=== PATIENT | female | born 1995 | race Hispanic/Latino ===

== ENCOUNTER 2020-03-09 18:44 | Emergency (ER) | payer SELFPAY ==
[2020-03-09 19:31] LABS: Urine Blood NEGATIVE (NEG); Urine Glucose NEGATIVE (NEG); Urine Protein NEGATIVE (NEG); Urine Specific Gravity 1.025 (1.005-1.030)
[2020-03-09 19:43] LABS: Absolute Lymphocytes (CBC) 1.7 K/uL (0.7-4.9); Basophils % 1.5 % (0-1.3); Hematocrit 39.4 % (36.0-45.0); Lymphocytes % 22.7 % (15.3-44.8); MPV 10.2 fL (7.6-11.3); RBC Red Blood Cell Count 4.82 M/uL (3.86-4.86)
[2020-03-09] MEDS ORDERED: NA CHLORIDE 0.9% 1,000 ML ONE ×2 (19:46→20:28)
[2020-03-09] MEDS ORDERED: ONDANSETRON 4 MG/2 ML VIAL ONE (19:46)
[2020-03-09 20:14] LABS: BUN Blood Urea Nitrogen 9 mg/dL (7-18); Bicarbonate 24 mmol/L (21-32); Glucose Level 91 mg/dL (74-106); HCG, Quantitative 151707 mIU/mL (1-3); Potassium 3.5 mmol/L (3.5-5.1); Sodium Level 135 mmol/L (136-145)
--- NOTE | 2020-03-09 21:59 | EDPHYS ---
Physician Documentation [facility] Name: Cristi Ga Age: 24 yrs Sex: Female : 1995 Arrival Date: 03/09/2020 Time: 18:47 Bed 5 Private MD: ED Physician Sundar Ragland HPI: 03/09 20:11 This 24 yrs old Female presents to ER via Ambulatory with complaints of pkl Vomiting, Dizziness, 8Weeks . 20:11 The patient presents to the emergency department with nausea, that is mild, vomiting, 4 pkl to 5 times a day. Onset: The symptoms/episode began/occurred 2 week(s) ago. Associated signs and symptoms: Pertinent positives: dizziness. Patient said she is about 8 weeks . 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 - Social history:: Smoking status: Patient denies any tobacco usage or history of. ROS: 20:11 Eyes: Negative for injury, pain, redness, and discharge, ENT: Negative for injury, pkl pain, and discharge, Neck: Negative for injury, pain, and swelling, Cardiovascular: Negative for chest pain, palpitations, and edema, Respiratory: Negative for shortness of breath, cough, wheezing, and pleuritic chest pain. 20:11 Abdomen/GI: Positive for nausea and vomiting. 20:11 Back: Negative for acute changes. 20:11 : Negative for urinary symptoms. 20:11 MS/extremity: Negative for acute changes. 20:11 Skin: Negative for rash. 20:11 Neuro: Negative for altered mental status. Exam: 20:11 Head/Face: Normocephalic, atraumatic. Eyes: Pupils equal round and reactive to light, pkl extra-ocular motions intact. Lids and lashes normal. Conjunctiva and sclera are non-icteric and not injected. Cornea within normal limits. Periorbital areas with no swelling, redness, or edema. ENT: Nares patent. No nasal discharge, no septal abnormalities noted. Tympanic membranes are normal and external auditory canals are clear. Oropharynx with no redness, swelling, or masses, exudates, or evidence of obstruction, uvula midline. Mucous membranes moist. Neck: Trachea midline, no thyromegaly or masses palpated, and no cervical lymphadenopathy. Supple, full range of motion without nuchal rigidity, or vertebral point tenderness. No Meningismus. Chest/axilla: Normal chest wall appearance and motion. Nontender with no deformity. No lesions are appreciated. Cardiovascular: Regular rate and rhythm with a normal S1 and S2. No gallops, murmurs, or rubs. Normal PMI, no JVD. No pulse deficits. Respiratory: Lungs have equal breath sounds bilaterally, clear to auscultation and percussion. No rales, rhonchi or wheezes noted. No increased work of breathing, no retractions or nasal flaring. Abdomen/GI: Soft, non-tender, with normal bowel sounds. No distension or tympany. No guarding or rebound. No evidence of tenderness throughout. Back: No spinal tenderness. No costovertebral tenderness. Full range of motion. Skin: Warm, dry with normal turgor. Normal color with no rashes, no lesions, and no evidence of cellulitis. MS/ Extremity: Pulses equal, no cyanosis. Neurovascular intact. Full, normal range of motion. Neuro: Awake and alert, GCS 15, oriented to person, place, time, and situation. Cranial nerves II-XII grossly intact. Motor strength 5/5 in all extremities. Sensory grossly intact. Cerebellar exam normal. Normal gait. Vital Signs: 19:05 BP 118 / 73; Pulse 106; Resp 16 S; Temp 97.5(TE); Pulse Ox 100% on R/A; Weight 68.04 kg ca1 (R); Height 5 ft. 7 in. (170.18 cm) (R); 21:05 BP 106 / 65; Pulse 72; Resp 18; Pulse Ox 100% on R/A; ea 22:08 BP 110 / 70; Pulse 70; Resp 16; Pulse Ox 99% ; rr5 19:05 Body Mass Index 23.49 (68.04 kg, 170.18 cm) ca1 MDM: 19:20 Patient medically screened. pkl 21:56 Data reviewed: vital signs, nurses notes, lab test result(s). ED course: Patient pkl feeling better. discussed lab results with patient. Advised to follow up with Ob. Garbage Collector Supervisor in 2 to 3 days. Patient understood instructions. 03/09 19:20 Order name: Urine Dipstick--Ancillary (enter results); Complete Time: 20:16 ar5 03/09 19:20 Order name: Urine --Ancillary (enter results); Complete Time: 20:16 ar5 03/09 19:27 Order name: CBC with Diff; Complete Time: 20:16 pkl 03/09 19:27 Order name: Chem 7; Complete Time: 20:16 pkl 03/09 19:27 Order name: Quantitative Hcg; Complete Time: 20:16 pkl 03/09 19:27 Order name: Rh Typing; Complete Time: 20:16 pkl 03/09 19:18 Order name: Urine Dipstick-Ancillary (obtain specimen); Complete Time: 19:18 ca1 03/09 19:18 Order name: Urine Test (obtain specimen); Complete Time: 19:18 ca1 Administered Medications: 19:47 Drug: NS 0.9% 1000 ml Route: IV; Rate: 1000 ml; Site: right antecubital; rr5 21:00 Follow up: Response: No adverse reaction; IV Status: Completed infusion; IV Intake: rr5 1000ml 19:49 Drug: Zofran (Ondansetron) 4 mg Route: IVP; Site: right antecubital; rr5 20:50 Follow up: Response: No adverse reaction rr5 21:01 Drug: NS 0.9% 1000 ml Route: IV; Rate: 125 ml/hr; Site: right antecubital; rr5 22:09 Follow up: Response: No adverse reaction; IV Status: Order to discontinue infusion; IV rr5 Intake: 400ml Disposition: 03/09/20 21:59 Discharged to Home. Impression: Hyperemesis gravidarum. - Condition is Stable. - Prescriptions for Zofran 4 mg Oral Tablet - take 1 tablet by ORAL route every 12 hours As needed; 10 tablet. - Medication Reconciliation Form, Thank You Letter, Antibiotic Education, Prescription Opioid Use, Work release form form. - Follow up: Private Physician; When: 2 - 3 days; Reason: Re-evaluation by your physician. - Problem is new. - Symptoms have improved. Signatures: Dispatcher [employer] EDMS Sundar Ragland MD MD pkl Daniella Diego RN RN ea Eben Joseph, RN RN rr5 AcStephanie michel RN RN ca1 Corrections: (The following items were deleted from the chart) 22:11 21:59 03/09/2020 21:59 Discharged to Home. Impression: Hyperemesis gravidarum. ea Condition is Stable. Forms are Medication Reconciliation Form, Thank You Letter, Antibiotic Education, Prescription Opioid Use. Follow up: Private Physician; When: 2 - 3 days; Reason: Re-evaluation by your physician. Problem is new. Symptoms have improved. pkl
--- NOTE | 2020-03-09 21:59 | ER ---
Nurse's Notes [facility] Name: Cristi Ga Age: 24 yrs Sex: Female : 1995 Arrival Date: 03/09/2020 Time: 18:47 Bed 5 Private MD: Diagnosis: Hyperemesis gravidarum Presentation: 03/09 19:05 Chief complaint: Patient states: 8 weeks , N/V x 2 weeks. Can't keep anything ca1 down, started feeling dizzy and weak this past few days. Coronavirus screen: Client denies travel out of the [place] in the last 14 days. At this time, the client does not indicate any symptoms associated with coronavirus-19. Ebola Screen: Patient negative for fever greater than or equal to 101.5 degrees Fahrenheit, and additional compatible Ebola Virus Disease symptoms Patient denies exposure to infectious person. Patient denies travel to an Ebola-affected area in the 21 days before illness onset. No symptoms or risks identified at this time. Initial Sepsis Screen: Does the patient meet any 2 criteria? No. Patient's initial sepsis screen is negative. Does the patient have a suspected source of infection? No. Patient's initial sepsis screen is negative. Risk Assessment: Do you want to hurt yourself or someone else? Patient reports no desire to harm self or others. Onset of symptoms was March 09, 2020. 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 - Social history:: Smoking status: Patient denies any tobacco usage or history of. Screenin:50 Abuse screen: Denies threats or abuse. Denies injuries from another. Nutritional rr5 screening: No deficits noted. Tuberculosis screening: No symptoms or risk factors identified. Fall Risk IV access (20 points). Total Burris Fall Scale indicates No Risk (0-24 pts). Assessment: 19:30 General: Appears in no apparent distress. uncomfortable, Behavior is calm, cooperative, rr5 appropriate for age. Pain: Denies pain. Neuro: Level of Consciousness is awake, alert, obeys commands, Oriented to person, place, time, situation, Appropriate for age. Cardiovascular: Capillary refill < 3 seconds Patient's skin is warm and dry. Respiratory: Airway is patent Respiratory effort is even, unlabored, Respiratory pattern is regular, symmetrical. GI: Abdomen is flat, Reports nausea, vomiting. : No signs and/or symptoms were reported regarding the genitourinary system. Denies vaginal bleeding. EENT: No signs and/or symptoms were reported regarding the EENT system. Derm: Skin is intact, is healthy with good turgor, Skin temperature is warm. Musculoskeletal: Circulation, motion, and sensation intact. Capillary refill < 3 seconds. 20:19 Reassessment: Patient appears in no apparent distress at this time. Patient is alert, rr5 oriented x 3, equal unlabored respirations, skin warm/dry/pink. Patient states feeling better. Patient states symptoms have improved. 21:00 Reassessment: Patient appears in no apparent distress at this time. Patient is alert, rr5 oriented x 3, equal unlabored respirations, skin warm/dry/pink. 22:08 Reassessment: Patient appears in no apparent distress at this time. Patient is alert, rr5 oriented x 3, equal unlabored respirations, skin warm/dry/pink. discharge instruction given and explained without complaints made. Patient states feeling better. Patient states symptoms have improved. Vital Signs: 19:05 BP 118 / 73; Pulse 106; Resp 16 S; Temp 97.5(TE); Pulse Ox 100% on R/A; Weight 68.04 kg ca1 (R); Height 5 ft. 7 in. (170.18 cm) (R); 21:05 BP 106 / 65; Pulse 72; Resp 18; Pulse Ox 100% on R/A; ea 22:08 BP 110 / 70; Pulse 70; Resp 16; Pulse Ox 99% ; rr5 19:05 Body Mass Index 23.49 (68.04 kg, 170.18 cm) ca1 ED Course: 18:47 Patient arrived in ED. rg4 19:07 Triage completed. ca1 19:07 Arm band placed on right wrist. ca1 19:10 Joseph, Eben, RN is Primary Nurse. rr5 19:20 Sundar Ragland MD is Attending Physician. pkl 19:20 Patient has correct armband on for positive identification. Placed in gown. Bed in low rr5 position. Call light in reach. Pulse ox on. NIBP on. 19:25 Inserted saline lock: 20 gauge in right antecubital area, using aseptic technique. ds4 Blood collected. 22:07 No provider procedures requiring assistance completed. IV discontinued, intact, rr5 bleeding controlled, No redness/swelling at site. Pressure dressing applied. Administered Medications: 19:47 Drug: NS 0.9% 1000 ml Route: IV; Rate: 1000 ml; Site: right antecubital; rr5 21:00 Follow up: Response: No adverse reaction; IV Status: Completed infusion; IV Intake: rr5 1000ml 19:49 Drug: Zofran (Ondansetron) 4 mg Route: IVP; Site: right antecubital; rr5 20:50 Follow up: Response: No adverse reaction rr5 21:01 Drug: NS 0.9% 1000 ml Route: IV; Rate: 125 ml/hr; Site: right antecubital; rr5 22:09 Follow up: Response: No adverse reaction; IV Status: Order to discontinue infusion; IV rr5 Intake: 400ml Intake: 21:00 IV: 1000ml; Total: 1000ml. rr5 22:09 IV: 400ml; Total: 1400ml. rr5 Outcome: 21:59 Discharge ordered by . pkl 22:07 Discharged to home ambulatory. rr5 22:07 Condition: stable 22:07 Discharge instructions given to patient, Instructed on discharge instructions, follow up and referral plans. medication usage, Demonstrated understanding of instructions, follow-up care, medications, Prescriptions given X 1. 22:11 Patient left the ED. ea Signatures: Sundar Ragland MD MD pkEagle Welch ds4 Tammie Rolle4 Daniella Diego RN RN ea Roque, Raymond, RN RN rr5 Stephanie Olmstead RN RN ca1
[2020-03-09 23:39] VITALS: TEMP 97.5
[2020-03-09 23:41] VITALS: BP 110/70; O2SAT 99
== END 2020-03-09 22:11 | disposition home or self-care (01) ==
LOC: ER 18:44
DX: O21.0 Mild hyperemesis gravidarum (principal); Z3A.08 8 weeks gestation of pregnancy
CPT/HCPCS: 36415; 80048; 81003; 81025; 84702; 85025; 86901; J2405; J7030

== ENCOUNTER 2021-12-31 00:50 | Inpatient (IN) | payer OTHER ==
--- OUTSIDE RECORDS SUMMARY | 2021-12-31 00:54 | XMS REPORT | Continuity of Care Document ---
:1995 Author Organization [facility] t Address [address] [place] [address] Care Team Providers Name Role Phone White_Braydon Attending Clinician Unavailable Keyana_Donna Attending Clinician Unavailable Jennifer_Matthew Attending Clinician Unavailable RUPERT Attending Clinician Unavailable Dalia_Braydon Admitting Clinician Unavailable Keyana_Donna Admitting Clinician Unavailable Jennifer_L Admitting Clinician Unavailable Lexa Rodriguez Admitting Clinician Unavailable RUPERT Admitting Clinician Unavailable Payers Payer Name Policy Type Policy Number Effective Date Expiration Date Kim aguilar [facility] D [id number] 2017 Choice Medicaid 00:00:00 [facility] D [id number] 2012 2012 Choice Medicaid 00:00:00 00[place]00:00 [place] [id number] [place] [facility] [id number] CHOICE (MEDICAID REPLACEMENT - [place]) [place]OM[place] [id number] HEALTH PROGRAM - FAMILY PLANNING Problems Condition Condition Condition Status Onset Resolution Last Treating Co mments Source Name Details Category Date Date Treatment Clinician Date Contracept Contracept Problem Active [facility] ion using ion Using 5-09 da injectable Injectable 00:00: Me dical contracept Contracept 00 Gr oup kianna kianna medication Medication History of History of Problem Active M [facility] 3 3 da miscarriag [place] Me dical es es Group Allergies, Adverse Reactions, Alerts Allergy Allergy Status Severity Reaction(s) Onset Inactive Treating Comm ents Source Name Type Date Date Clinician No Known DA [facility]04 [place] [facility] 00[facility] No Known DA [facility] 04-04 [place] 00:[facility]: [facility] No Known DA Active [facility] 01-28 [place] 00:[facility]: [facility] No Known DA Active [facility]ie 01-28 [place] 00:[facility]: [facility] Social History Smoking Status Start Date Stop Date Source Never Smoker [facility] Medications Ordered Filled Start Stop Current Ordering Indication Dosage Frequency Signature Comments Components Source Medication Medication Date Date Medication? Clinician (SIG) Name Name medroxyprog medroxyprog No medroxypro [place] esterone esterone 5-24 gesterone da 150 mg/mL 150 mg/mL 11:28: 150 mg/mL Medical intramuscul intramuscul 44 intramuscu Group ar ar lar suspensionI suspensionI suspension nject 1 mL nject 1 mL Inject 1 every 3 every 3 mL every 3 months by months by months by intramuscul intramuscul intramuscu ar route. ar route. lar route. Depo-Labels Molder Depo-Labels Molder No 1mL Depo-Prove [place] a 150 mg/mL a 150 mg/mL ra 150 da intramuscul intramuscul mg/mL Medical ar syringe ar syringe intramuscu Group Inject 1 mL Inject 1 mL lar every 3 every 3 syringe months by months by Inject 1 intramuscul intramuscul mL every 3 ar route. ar route. months by intramuscu lar route. medroxyprog medroxyprog No 1mL medroxypro [place] esterone esterone gesterone da 150 mg/mL 150 mg/mL 150 mg/mL Medical intramuscul intramuscul intramuscu Group ar ar lar suspension suspension suspension Inject 1 mL Inject 1 mL Inject 1 every 3 every 3 mL every 3 months by months by months by intramuscul intramuscul intramuscu ar route. ar route. lar route. Immunizations Ordered Immunization Filled Immunization Date Status Commen ts Source Name Name Tdap Tdap 2018-02-14 Completed [place] 10:18:49 [facility] Tdap Tdap 2018-02-14 Completed [facility] 00:00:00 [facility] Vital Signs Vital Name Observation Time Observation Value Comments Source BP Diastolic 2021-12-13 00:00:00 78 mm[Hg] [facility] Height 2021-12-13 00:00:00 67 [in_i] [facility] BMI (Body Mass 2021-12-13 00:00:00 29.6 kg/m2 [facility] Index) Group BP Systolic 2021-12-13 00:00:00 111 mm[Hg] [facility] Body Weight 2021-12-13 00:00:00 189.3 [lb_av] [facility] BP Diastolic 2021-05-31 00:00:00 74 mm[Hg] [facility] Height 2021-05-31 00:00:00 67 [in_i] [facility] BMI (Body Mass 2021-05-31 00:00:00 29.7 kg/m2 [facility]) Group BP Systolic 2021-05-31 00:00:00 124 mm[Hg] [facility] Body Weight 2021-05-31 00:00:00 189.6 [lb_av] [facility] Height 2021-02-16 00:00:00 67 [in_i] [facility] BP Diastolic 2020-11-12 00:00:00 80 mm[Hg] [facility] Height 2020-11-12 00:00:00 67 [in_i] [facility] BMI (Body Mass 2020-11-12 00:00:00 25.1 kg/m2 [facility]) Group BP Systolic 2020-11-12 00:00:00 128 mm[Hg] [facility] Body Weight 2020-11-12 00:00:00 160.1 [lb_av] [facility] BP Diastolic 2020-10-11 00:00:00 78 mm[Hg] [facility] Height 2020-10-11 00:00:00 67 [in_i] [facility] BMI (Body Mass 2020-10-11 00:00:00 25.2 kg/m2 [facility]) Group BP Systolic 2020-10-11 00:00:00 115 mm[Hg] [facility] Body Weight 2020-10-11 00:00:00 160.9 [lb_av] [facility] BP Diastolic 2020-10-05 00:00:00 81 mm[Hg] [facility] Height 2020-10-05 00:00:00 67 [in_i] [facility] BMI (Body Mass 2020-10-05 00:00:00 25 kg/m2 [facility]) Group BP Systolic 2020-10-05 00:00:00 121 mm[Hg] [facility] Body Weight 2020-10-05 00:00:00 159.6 [lb_av] [facility] BP Diastolic 2020-09-28 00:00:00 76 mm[Hg] [facility] Height 2020-09-28 00:00:00 67 [in_i] [facility] BMI (Body Mass 2020-09-28 00:00:00 25 kg/m2 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) Group BP Systolic 2020-09-28 00:00:00 115 mm[Hg] [facility] Body Weight 2020-09-28 00:00:00 159.6 [lb_av] [facility] BP Diastolic 2020-09-14 00:00:00 75 mm[Hg] [facility] Height 2020-09-14 00:00:00 67 [in_i] [facility] BMI (Body Mass 2020-09-14 00:00:00 24.7 kg/m2 [facility]) Group BP Systolic 2020-09-14 00:00:00 116 mm[Hg] [facility] Body Weight 2020-09-14 00:00:00 157.4 [lb_av] [facility] BP Diastolic 2020-08-30 00:00:00 71 mm[Hg] [facility] Height 2020-08-30 00:00:00 67 [in_i] [facility] BMI (Body Mass 2020-08-30 00:00:00 23.9 kg/m2 [facility]) Group BP Systolic 2020-08-30 00:00:00 105 mm[Hg] [facility] Body Weight 2020-08-30 00:00:00 152.3 [lb_av] [facility] BP Diastolic 2020-08-09 00:00:00 73 mm[Hg] [facility] Height 2020-08-09 00:00:00 67 [in_i] [facility] BMI (Body Mass 2020-08-09 00:00:00 23.4 kg/m2 [facility]) Group BP Systolic 2020-08-09 00:00:00 112 mm[Hg] [facility] Body Weight 2020-08-09 00:00:00 149.3 [lb_av] [facility] BP Diastolic 2020-06-04 00:00:00 66 mm[Hg] [facility] Height 2020-06-04 00:00:00 67 [in_i] [facility] BMI (Body Mass 2020-06-04 00:00:00 22.3 kg/m2 [facility]) Group BP Systolic 2020-06-04 00:00:00 110 mm[Hg] [facility] Body Weight 2020-06-04 00:00:00 142.7 [lb_av] [facility] BP Diastolic 2020-05-06 00:00:00 72 mm[Hg] [facility] Height 2020-05-06 00:00:00 67 [in_i] [facility] BMI (Body Mass 2020-05-06 00:00:00 22.1 kg/m2 [facility]) Group BP Systolic 2020-05-06 00:00:00 102 mm[Hg] [facility] Body Weight 2020-05-06 00:00:00 140.9 [lb_av] [facility] BP Diastolic 2020-04-15 00:00:00 74 mm[Hg] [facility] Height 2020-04-15 00:00:00 67 [in_i] [facility] BMI (Body Mass 2020-04-15 00:00:00 22.3 kg/m2 [facility]) Group BP Systolic 2020-04-15 00:00:00 114 mm[Hg] [facility] Body Weight 2020-04-15 00:00:00 142.2 [lb_av] [facility] BP Diastolic 2019-06-12 00:00:00 76 mm[Hg] [facility] Height 2019-06-12 00:00:00 67 [in_i] [facility] BMI (Body Mass 2019-06-12 00:00:00 23.4 kg/m2 [facility] Index) Group BP Systolic 2019-06-12 00:00:00 133 mm[Hg] [facility] Body Weight 2019-06-12 00:00:00 149.1 [lb_av] [facility] BP Diastolic 2019-03-11 00:00:00 72 mm[Hg] [facility] Height 2019-03-11 00:00:00 67 [in_i] [facility] BMI (Body Mass 2019-03-11 00:00:00 22.3 kg/m2 [facility]) Group BP Systolic 2019-03-11 00:00:00 119 mm[Hg] [facility] Body Weight 2019-03-11 00:00:00 142.1 [lb_av] [facility] BP Diastolic 2018-12-09 00:00:00 78 mm[Hg] [facility] Height 2018-12-09 00:00:00 67 [in_i] [facility] BMI (Body Mass 2018-12-09 00:00:00 22.2 kg/m2 [facility]) Group BP Systolic 2018-12-09 00:00:00 124 mm[Hg] [facility] Body Weight 2018-12-09 00:00:00 141.5 [facility]lb_av[facility] BP Diastolic 2018-09-12 00:00:00 82 mm[facility]Hg[facility] Height 2018-09-12 00:00:00 67 [in_i[facility] BMI (Body Mass 2018-09-12 00:00:00 22.3 kg/m2 [facility]) Group BP Systolic 2018-09-12 00:00:00 128 mm[facility]Hg[facility] Body Weight 2018-09-12 00:00:00 142.5 [lb_av] [facility] Procedures Procedure Date / Time Performing Clinician Source Performed non-stress test 2020-10-05 00:00:00 [place] [facility] US, obstetric, limited 2020-09-28 00:00:00 [facility] 2020-08-30 00:00:00 [facility] ULTRASOUND REPEAT 2020-08-09 00:00:00 [facility] ULTRASOUND, 2020-05-06 00:00:00 [facility] UTERUS REAL TIME WITH Group IMAGE DOC, AND MATERNAL EVAL PLUS DETAILED ANATOMIC EXAMINATION, TRANSABDOMINAL APPROACH; SINGLE OR FIRST GESTATION US, obstetric, limited 2020-05-06 00:00:00 [facility] US, obstetric, limited 2020-04-15 00:00:00 [facility] Plan of Care Planned Activity Planned Date Details Comments Source Diagnostic Test 2021-12-13 test, [facility] Pending 00:00:00 urine [code = Group test, urine] Future Appointment 2022-03-14 Suzy Reaves 13:30:00 Hospital [facility] [address]; , [place] [address] Encounters Start End Encounter Admission Attending Care Care Encounter Source Date/Time Date/Time Type Type Clinicians Facility Department ID 2021-10-15 [place] [id number] [place] 01:17:54 [facility] 2021-12-13 2021-12-13 Outpatient White_M MMG MMG [id number] [facility] 12[facility]02[facility]00 0524 [facility] Group 2021-12-13 2021-12-13 Outpatient White_M MMG MMG [id number] [place] 12:02:00 12:02:00 0530 [facility] 2021-12-13 2021-12-13 Mary TORRESG [place] - [id number] M [facility] 00:00:00 00:00:00 Discovery rell Gómez [facility]-: [address] [address] , Ph. [phone] 2021-11-24 2021-11-24 Outpatient White_M MMG MMG [id number] [place] 03:26:00 03:26:00 0505 [facility] 2021-11-24 2021-11-24 Outpatient White_M MMG MMG [id number] [place] 03:26:00 03:26:00 0506 Medical [facility] 2021-08-31 2021-08-31 Outpatient White_M MMG MMG [id number] [place] 02:37:00 02:37:00 0209 [facility] 2021-08-31 2021-08-31 George MMG [place] - [id number] M [facility] 00:00:00 00:00:00 Discovery rell Thompson MD: [address] [place] [address] , Ph. [phone] 2021-05-31 2021-05-31 Outpatient White_M MMG MMG [id number] [place] 09:47:00 09:47:00 1109 [facility] 2021-05-31 2021-05-31 George MMG [place] - [id number] M [facility] 00:00:00 00:00:00 Discovery rell Thompson MD: [address] [place] [address] , Ph. [phone] 2021-02-16 2021-02-16 Outpatient White_M MMG MMG [id number] [place] 01:18:00 01:18:00 0728 [facility] 2021-02-16 2021-02-16 Outpatient White_M MMG MMG [id number] [place] 01:18:00 01:18:00 1026 [facility] 2021-02-16 2021-02-16 Outpatient White_M MMG MMG [id number] [place] 01:18:00 01:18:00 1028 [facility] 2021-02-16 2021-02-16 Katerin MMG [place] - [id number] M [facility] 00:00:00 00:00:00 [facility] S[facility]ano [facility] matthew MD: [address] [place] [phone] , Ph. [phone] 2020-11-12 2020-11-12 Outpatient White_M MMG MMG [id number] [place] 10:49:00 10:49:00 0423 Medical Group 2020-11-12 2020-11-12 Outpatient White_M MMG MMG [id number] [place] 10:49:00 10:49:00 0426 Medical Group 2020-11-12 2020-11-12 Mary MMG [place] - [id number] M [facility] 00:00:00 00:00:00 Discovery rell Gómez [facility]-: [facility] [address] [place] [phone] , Ph. [phone] 2020-11-11 2020-11-11 Outpatient G_Pappas MMG MMG [id number] [place] 04:36:00 04:36:00 0422 [facility] 2020-11-04 2020-11-04 Outpatient G_Pappas MMG MMG [id number] [place] 11:31:00 11:31:00 0415 [facility] 2020-10-20 2020-10-20 Outpatient G_Pappas MMG MMG [id number] [place] 04:28:00 04:28:00 0402 [facility] 2020-10-11 2020-10-11 Outpatient G_Pappas MMG MMG [id number] [place] 12:20:00 12:20:00 0322 Medical Group 2020-10-11 2020-10-11 [place] [id number] [place] 12:20:00 12:20:00 0323 [facility] 2020-10-11 2020-10-11 George TORRES [place] - [id number] M [facility] 00:00:00 00:00:00 Discovery rell Thompson MD: [address] [place] [phone] , Ph. [phone] 2020-10-05 2020-10-05 Outpatient G_Pappas MMG MM [id number] [place] 05:32:00 05:32:00 0316 Medical Group 2020-10-05 2020-10-05 Outpatient G_Pappas MMG MMG [id number] [place] 05:32:00 05:32:00 0318 Medical Group 2020-10-05 2020-10-05 George TORRES [place] - [id number] M [facility] 00:00:00 00:00:00 Discovery rell Thompson MD: [address] [place] [phone] , Ph. [phone] 2020-09-28 2020-09-28 Outpatient Rutledge_L MMG MMG [id number] [place] 03:19:00 03:19:00 0309 Medical Group 2020-09-28 2020-09-28 George TORRES [place] - [id number] M [facility] 00:00:00 00:00:00 Discovery rell Thompson MD: [address] [place] [phone] , Ph. [phone] 2020-09-14 2020-09-14 Outpatient Rutledge_L MMG MMG [id number] [place] 02:34:00 02:34:00 0223 Medical Group 2020-09-14 2020-09-14 Outpatient Rutledge_L MMG MMG [id number] [place] 02:34:00 02:34:00 0225 [facility] 2020-09-14 2020-09-14 Outpatient Rutledge_L MMG MMG [id number] [place] 02:34:00 02:34:00 0305 [facility] 2020-09-14 2020-09-14 Katerin MMG [place] - [id number] M [facility] 00:00:00 00:00:00 Memo Serrano Medical Medicmar castro MD: [address] [address] , Ph. [phone] 2020-08-30 2020-08-30 Outpatient Rutledge_L MMG MMG [id number] [place] 11:06:00 11:06:00 0208 [facility] 2020-08-30 2020-08-30 Katerin MMG [place] - [id number] M [facility] 00:00:00 00:00:00 Memo Serrano [facility] matthew MD: [address] [address] , Ph. [phone] 2020-08-09 2020-08-09 Outpatient Rutledge_L MMG MMG [id number] [place] 09:29:00 09:29:00 0118 [facility] 2020-08-09 2020-08-09 Outpatient Rutledge_L MMG MMG [id number] [place] 09:29:00 09:29:00 0120 [facility] 2020-08-09 2020-08-09 Katerin MMG [place] - [id number] M [facility] 00:00:00 00:00:00 Memo Serrano Medical Medicmar castro MD: [address] [address] , Ph. [phone] 2020-06-09 2020-06-09 Outpatient Rutledge_L MMG MMG [id number] [place] 02:40:00 02:40:00 1118 [facility] 2020-06-04 2020-06-04 Outpatient Rutledge_L MMG MMG [id number] [place] 11:48:00 11:48:00 1113 [facility] 2020-06-04 2020-06-04 Outpatient Rutledge_L MMG MMG [id number] [place] 11:48:00 11:48:00 1115 [facility] 2020-06-04 2020-06-04 Katerin MMG [place] - [id number] M [facility] 00:00:00 00:00:00 Memo Serrano [facility] Medica matthew MD: [address] [place] [phone] , Ph. [phone] 2020-06-03 2020-06-03 Outpatient Rutledge_L MMG MMG [id number] [place] 11:29:00 11:29:00 1112 Medical Group 2020-05-06 2020-05-06 Outpatient G_Pappas MMG MMG [id number] [place] 02:22:00 02:22:00 1015 Medical Group 2020-05-06 2020-05-06 George MM [place] - [id number] M [facility] 00:00:00 00:00:00 Discovery rell Thompson MD: [address] [place] [phone] , Ph. [phone] 2020-04-15 2020-04-15 Outpatient G_Pappas MMG MMG [id number] [place] 11:39:00 11:39:00 0924 [facility] 2020-04-15 2020-04-15 Outpatient G_Pappas MMG MMG [id number] [place] 11:39:00 11:39:00 0925 [facility] 2020-04-15 2020-04-15 Outpatient G_Pappas MMG MMG [id number] [place] 11:39:00 11:39:00 1014 Medical Group 2020-04-15 2020-04-15 Corina Mckenna MM [place] - [id number] [place] 00:00:00 00:00:00 Discovery Melissa Mena: [address] [place] [phone] , Ph. [phone] 2020-04-12 2020-04-12 Outpatient G_Pappas MMG MMG [id number] [place] 12:04:00 12:04:00 0921 Medical Group 2020-04-04 2020-04-07 Inpatient [facility] [id number] [facility] 14:26:00 02:24:29 46 [facility] 2020-01-28 2020-01-28 Outpatient L[facility]I [facility] [id number] [place] 03:48:00 03:48:00 [facility] 0708 [facility] 2019-06-28 2019-06-28 Outpatient G_Pappas MMG MMG [id number] [place] 12:23:00 12:23:00 0225 Medical Group 2019-06-28 2019-06-28 Outpatient G_Pappas MMG MMG [id number] [place] 12:23:00 12:23:00 0803 Medical Group 2019-06-28 2019-06-28 Outpatient G_Pappas MMG MMG [id number] [place] 12:23:00 12:23:00 0903 Medical Group 2019-06-28 2019-06-28 Outpatient G_Pappas MMG MMG [id number] [place] 12:23:00 12:23:00 0220 Medical Group 2019-06-28 2019-06-28 Outpatient G_Pappas MMG MM [id number] [place] 12:23:00 12:23:00 0221 Medical Group 2019-06-12 2019-06-12 George YODER [place] - [id number] M [facility] 00:00:00 00:00:00 Discovery rell Thompson MD: [address] [place] [phone] , Ph. [phone] 2019-03-11 2019-03-11 George YODER [place] - [id number] M [facility] 00:00:00 00:00:00 Discovery rell Thompson MD: [address] [place] [address] , Ph. [phone] 2018-12-09 2018-12-09 George MMG [place] - [id number] M [facility] 00:00:00 00:00:00 Discovery rell Thompson MD: [address] [address] , Ph. [phone] 2018-09-12 2018-09-12 George YODER [place] - [id number] M [facility] 00:00:00 00:00:00 Discovery rell Thompson MD: [address] [address] , Ph. [phone] Results Test Description Test Time Test Comments Results Result Comments Source test, urine 2021-12-13 11:27:54 Test Item Value Reference Range Interpretation Comme nts Test (test code = Test) negative [facility] [id number] 13:59:49 Test Item Value Reference Range Interpretation Comments Test (test code = negative Test) [facility] [id number] 09:08:31 Test Item Value Reference Range Interpretation Comments Test (test code = negative Test) [facility] W Auto Differential panel - [id number] 08:58:00 Test Item Value Reference Range Interpretation Comments white blood count (test code = 10.8 K/uL 4.0-11.5 white blood count) red blood count (test code = red 3.02 M/uL 3.80-5.20 L blood count) hemoglobin (test code = 6.9 g/dL 10.5-15.7 L hemoglobin) hematocrit (test code = 25.0 % 34.0-50.0 L hematocrit) MCV [Entitic volume] (test code = 82.8 fL 86-100 L 70916-9) mean corpuscular hemoglobin (test 22.8 pg 26.2-33.4 L code = mean corpuscular hemoglobin) mean corpuscular HGB conc (test 27.6 g/dL 30-34 L code = mean corpuscular HGB conc) red cell distribution width (test 15.2 % 12.0-15.5 code = red cell distribution width) platelet count (test code = 149 K/uL 165-450 L platelet count) mean platelet volume (test code = 12.6 fL 9.4-12.6 mean platelet volume) Segmented neutrophils/100 69.0 % 44.4-80.1 leukocytes in Blood (test code = 52610-4) Immature granulocytes [#/volume] 0.1 K/uL 0.0-0.03 H in Blood (test code = 39309-6) lymphocyte% (test code = 20.0 % 10.0-50.0 lymphocyte%) mono % (test code = mono %) 8.6 % 3.6-12.0 eos % (test code = eos %) 0.9 % 0.0-5.4 Basophils/100 leukocytes in 0.5 % 0.1-1.2 Unspecified specimen (test code = 92560-7) Band form neutrophils [#/volume] 7.43 K/uL 1.56-6.13 H in Blood (test code = 79359-4) Lymphocytes [#/volume] in 2.2 K/uL 1.18-3.74 Unspecified specimen by Automated count (test code = 07480-9) mono # (test code = mono #) 0.92 K/uL 0.24-0.86 H eos # (test code = eos #) 0.10 K/uL 0.04-0.36 basophil # (test code = basophil 0.05 K/uL 0.01-0.08 #) NRBC% (test code = NRBC%) 0 /100 WBC 0-0.2 NRBC# (test code = NRBC#) 0 K/uL [facility] W Auto Differential panel - [id number] 08:58:00 Test Item Value Reference Range Interpretation Comments white blood count (test code = 10.8 K/uL 4.0-11.5 white blood count) red blood count (test code = red 3.02 M/uL 3.80-5.20 L blood count) hemoglobin (test code = 6.9 g/dL 10.5-15.7 L hemoglobin) hematocrit (test code = 25.0 % 34.0-50.0 L hematocrit) MCV [Entitic volume] (test code = 82.8 fL 86-100 L 20424-8) mean corpuscular hemoglobin (test 22.8 pg 26.2-33.4 L code = mean corpuscular hemoglobin) mean corpuscular HGB conc (test 27.6 g/dL 30-34 L code = mean corpuscular HGB conc) red cell distribution width (test 15.2 % 12.0-15.5 code = red cell distribution width) platelet count (test code = 149 K/uL 165-450 L platelet count) mean platelet volume (test code = 12.6 fL 9.4-12.6 mean platelet volume) Segmented neutrophils/100 69.0 % 44.4-80.1 leukocytes in Blood (test code = 93343-2) Immature granulocytes [#/volume] 0.1 K/uL 0.0-0.03 H in Blood (test code = 08782-5) lymphocyte% (test code = 20.0 % 10.0-50.0 lymphocyte%) mono % (test code = mono %) 8.6 % 3.6-12.0 eos % (test code = eos %) 0.9 % 0.0-5.4 Basophils/100 leukocytes in 0.5 % 0.1-1.2 Unspecified specimen (test code = 75875-3) Band form neutrophils [#/volume] 7.43 K/uL 1.56-6.13 H in Blood (test code = 90531-9) Lymphocytes [#/volume] in 2.2 K/uL 1.18-3.74 Unspecified specimen by Automated count (test code = 05759-7) mono # (test code = mono #) 0.92 K/uL 0.24-0.86 H eos # (test code = eos #) 0.10 K/uL 0.04-0.36 basophil # (test code = basophil 0.05 K/uL 0.01-0.08 #) NRBC% (test code = NRBC%) 0 /100 WBC 0-0.2 NRBC# (test code = NRBC#) 0 K/uL [facility] W Auto Differential panel - [id number] 03:25:00 Test Item Value Reference Range Interpretation Comments white blood count (test code = 9.5 K/uL 4.0-11.5 white blood count) red blood count (test code = red 3.56 M/uL 3.80-5.20 L blood count) hemoglobin (test code = 8.3 g/dL 10.5-15.7 L hemoglobin) hematocrit (test code = 29.4 % 34.0-50.0 L hematocrit) MCV [Entitic volume] (test code = 82.6 fL 86-100 L 14276-1) mean corpuscular hemoglobin (test 23.3 pg 26.2-33.4 L code = mean corpuscular hemoglobin) mean corpuscular HGB conc (test 28.2 g/dL 30-34 L code = mean corpuscular HGB conc) red cell distribution width (test 15.2 % 12.0-15.5 code = red cell distribution width) platelet count (test code = 198 K/uL 165-450 platelet count) mean platelet volume (test code = 12.6 fL 9.4-12.6 mean platelet volume) Segmented neutrophils/100 64.2 % 44.4-80.1 leukocytes in Blood (test code = 96552-2) Immature granulocytes [#/volume] 0.2 K/uL 0.0-0.03 H in Blood (test code = 65512-5) lymphocyte% (test code = 25.3 % 10.0-50.0 lymphocyte%) mono % (test code = mono %) 6.4 % 3.6-12.0 eos % (test code = eos %) 1.2 % 0.0-5.4 Basophils/100 leukocytes in 1.0 % 0.1-1.2 Unspecified specimen (test code = 15195-3) Band form neutrophils [#/volume] 6.08 K/uL 1.56-6.13 in Blood (test code = 54820-3) Lymphocytes [#/volume] in 2.4 K/uL 1.18-3.74 Unspecified specimen by Automated count (test code = 61709-5) mono # (test code = mono #) 0.61 K/uL 0.24-0.86 eos # (test code = eos #) 0.11 K/uL 0.04-0.36 basophil # (test code = basophil 0.09 K/uL 0.01-0.08 H #) NRBC% (test code = NRBC%) 0 /100 WBC 0-0.2 NRBC# (test code = NRBC#) 0 K[facility] and Indirect antibody screen panel - Blood 2020-10-15 03:25:00 Test Item Value Reference Range Interpretation Comments Rh [Type] in Blood (test code = 4+ 73687-0) ABO and Rh group panel - Blood O positive (test code = 78400-9) [facility] [Presence] in Serum by [id number] 03:25:00 Test Item Value Reference Range Interpretation Comments Reagin Ab [Presence] in Serum by nonreactive nonreactive RPR (test code = 14184-1) [facility]Hepatitis B virus surface Ag [Presence] in Serum 2020-10-15 03:25:00 Test Item Value Reference Range Interpretation Comments .hepatitis B surface antigen (test negative negative code = .hepatitis B surface antigen) [facility] Auto Differential panel - [id number] 03:25:00 Test Item Value Reference Range Interpretation Comments white blood count (test code = 9.5 K/uL 4.0-11.5 white blood count) red blood count (test code = red 3.56 M/uL 3.80-5.20 L blood count) hemoglobin (test code = 8.3 g/dL 10.5-15.7 L hemoglobin) hematocrit (test code = 29.4 % 34.0-50.0 L hematocrit) MCV [Entitic volume] (test code = 82.6 fL 86-100 L 03109-7) mean corpuscular hemoglobin (test 23.3 pg 26.2-33.4 L code = mean corpuscular hemoglobin) mean corpuscular HGB conc (test 28.2 g/dL 30-34 L code = mean corpuscular HGB conc) red cell distribution width (test 15.2 % 12.0-15.5 code = red cell distribution width) platelet count (test code = 198 K/uL 165-450 platelet count) mean platelet volume (test code = 12.6 fL 9.4-12.6 mean platelet volume) Segmented neutrophils/100 64.2 % 44.4-80.1 leukocytes in Blood (test code = 67167-5) Immature granulocytes [#/volume] 0.2 K/uL 0.0-0.03 H in Blood (test code = 37418-7) lymphocyte% (test code = 25.3 % 10.0-50.0 lymphocyte%) mono % (test code = mono %) 6.4 % 3.6-12.0 eos % (test code = eos %) 1.2 % 0.0-5.4 Basophils/100 leukocytes in 1.0 % 0.1-1.2 Unspecified specimen (test code = 34728-6) Band form neutrophils [#/volume] 6.08 K/uL 1.56-6.13 in Blood (test code = 26053-3) Lymphocytes [#/volume] in 2.4 K/uL 1.18-3.74 Unspecified specimen by Automated count (test code = 07144-3) mono # (test code = mono #) 0.61 K/uL 0.24-0.86 eos # (test code = eos #) 0.11 K/uL 0.04-0.36 basophil # (test code = basophil 0.09 K/uL 0.01-0.08 H #) NRBC% (test code = NRBC%) 0 /100 WBC 0-0.2 NRBC# (test code = NRBC#) 0 K/uL [facility] panel - Blood 2020-10-15 03:25:00 Test Item Value Reference Range Interpretation Comments Rh [Type] in Blood (test code = 4+ 96322-3) ABO and Rh group panel - Blood O positive (test code = 96284-0) [facility] [Presence] in Serum by [id number] 03:25:00 Test Item Value Reference Range Interpretation Comments Reagin Ab [Presence] in Serum by nonreactive nonreactive RPR (test code = 68866-1) [facility] B virus surface Ag [Presence] in Serum 2020-10-15 03:25:00 Test Item Value Reference Range Interpretation Comments .hepatitis B surface antigen (test negative negative code = .hepatitis B surface antigen) [facility] macro (dipstick) panel - [id number] 14:23:23 Test Item Value Reference Range Interpretation Comments Leukocytes (test code = Leukocytes) Large Nitrite (test code = Nitrite) negative Urobilinogen (test code = 1 Urobilinogen) Protein (test code = Protein) Trace pH (test code = pH) 6.0 Blood (test code = Blood) Negative Specific [place] (test code = 1.030 Specific [place]) Ketone (test code = Ketone) Trace Bilirubin (test code = Bilirubin) Negative Glucose (test code = Glucose) Negative Appearance (test code = Appearance) Clear Color (test code = Color) Yellow [facility] macro (dipstick) panel - [id number] 14:23:23 Test Item Value Reference Range Interpretation Comments Leukocytes (test code = Leukocytes) Large Nitrite (test code = Nitrite) negative Urobilinogen (test code = 1 Urobilinogen) Protein (test code = Protein) Trace pH (test code = pH) 6.0 Blood (test code = Blood) Negative Specific [place] (test code = 1.030 Specific [place]) Ketone (test code = Ketone) Trace Bilirubin (test code = Bilirubin) Negative Glucose (test code = Glucose) Negative Appearance (test code = Appearance) Clear Color (test code = Color) Yellow [facility] macro (dipstick) panel - [id number] 14:23:23 Test Item Value Reference Range Interpretation Comments Leukocytes (test code = Leukocytes) Large Nitrite (test code = Nitrite) negative Urobilinogen (test code = 1 Urobilinogen) Protein (test code = Protein) Trace pH (test code = pH) 6.0 Blood (test code = Blood) Negative Specific [place] (test code = 1.030 Specific [place]) Ketone (test code = Ketone) Trace Bilirubin (test code = Bilirubin) Negative Glucose (test code = Glucose) Negative Appearance (test code = Appearance) Clear Color (test code = Color) Yellow [facility] macro (dipstick) panel - [id number] 14:23:23 Test Item Value Reference Range Interpretation Comments Leukocytes (test code = Leukocytes) Large Nitrite (test code = Nitrite) negative Urobilinogen (test code = 1 Urobilinogen) Protein (test code = Protein) Trace pH (test code = pH) 6.0 Blood (test code = Blood) Negative Specific [place] (test code = 1.030 Specific [place]) Ketone (test code = Ketone) Trace Bilirubin (test code = Bilirubin) Negative Glucose (test code = Glucose) Negative Appearance (test code = Appearance) Clear Color (test code = Color) Yellow [facility]Chlamydia trachomatis+Neisseria gonorrhoeae DNA [Presence] in Unspecified specimen by KWAN with [id number] 00:00:00 Test Item Value Reference Range Interpretation Comments chlamydia trachomatis by real-time positive A PCR (reflex to azithromycin resistance by pyrosequencing) (test code = chlamydia trachomatis by real-time PCR (reflex to azithromycin resistance by pyrosequencing)) neisseria gonorrhoeae by real-time negative PCR (reflex to antibiotic resistance by molecular analysis) (test code = neisseria gonorrhoeae by real-time PCR (reflex to antibiotic resistance by molecular analysis)) [facility]ydia trachomatis+Neisseria gonorrhoeae DNA [Presence] in Unspecified specimen by KWAN with [id number] 00:00:00 Test Item Value Reference Range Interpretation Comments chlamydia trachomatis by real-time positive A PCR (reflex to azithromycin resistance by pyrosequencing) (test code = chlamydia trachomatis by real-time PCR (reflex to azithromycin resistance by pyrosequencing)) neisseria gonorrhoeae by real-time negative PCR (reflex to antibiotic resistance by molecular analysis) (test code = neisseria gonorrhoeae by real-time PCR (reflex to antibiotic resistance by molecular analysis)) [facility] trachomat[facility]+Neisseria gonorrhoeae DNA [Presence] in Unspecified specimen by KWAN with [id number] 00:00:00 Test Item Value Reference Range Interpretation Comments chlamydia trachomatis by real-time positive A PCR (reflex to azithromycin resistance by pyrosequencing) (test code = chlamydia trachomatis by real-time PCR (reflex to azithromycin resistance by pyrosequencing)) neisseria gonorrhoeae by real-time negative PCR (reflex to antibiotic resistance by molecular analysis) (test code = neisseria gonorrhoeae by real-time PCR (reflex to antibiotic resistance by molecular analysis)) [facility] trachomat[facility]+Neisseria gonorrhoeae DNA [Presence] in Unspecified specimen by KWAN with [id number] 00:00:00 Test Item Value Reference Range Interpretation Comments chlamydia trachomatis by real-time positive A PCR (reflex to azithromycin resistance by pyrosequencing) (test code = chlamydia trachomatis by real-time PCR (reflex to azithromycin resistance by pyrosequencing)) neisseria gonorrhoeae by real-time negative PCR (reflex to antibiotic resistance by molecular analysis) (test code = neisseria gonorrhoeae by real-time PCR (reflex to antibiotic resistance by molecular analysis)) [facility] [Presence] in Vaginal fluid by KWAN with probe [id number] 00:00:00 Test Item Value Reference Range Interpretation Comments jeff albicans by real-time PCR negative (test code = jeff albicans by real-time PCR) jeff tropicalis by real-time PCR negative (test code = jeff tropicalis by real-time PCR) jeff parapsilosis by real-time negative PCR (test code = jeff parapsilosis by real-time PCR) jeff glabrata by real-time PCR negative (test code = jeff glabrata by real-time PCR) [facility] GroupCand[facility] sp DNA [Presence] in Vaginal fluid by KWAN with probe [id number] 00:00:00 Test Item Value Reference Range Interpretation Comments jeff albicans by real-time PCR negative (test code = jeff albicans by real-time PCR) jeff tropicalis by real-time PCR negative (test code = jeff tropicalis by real-time PCR) jeff parapsilosis by real-time negative PCR (test code = jeff parapsilosis by real-time PCR) jeff glabrata by real-time PCR negative (test code = jeff glabrata by real-time PCR) [facility] GroupCand[facility] sp DNA [Presence] in Vaginal fluid by KAWN with probe [id number] 00:00:00 Test Item Value Reference Range Interpretation Comments jeff albicans by real-time PCR negative (test code = jeff albicans by real-time PCR) jeff tropicalis by real-time PCR negative (test code = jeff tropicalis by real-time PCR) jeff parapsilosis by real-time negative PCR (test code = jeff parapsilosis by real-time PCR) jeff glabrata by real-time PCR negative (test code = jeff glabrata by real-time PCR) [facility] GroupCand[facility] sp DNA [Presence] in Vaginal fluid by KWAN with probe [id number] 00:00:00 Test Item Value Reference Range Interpretation Comments jeff albicans by real-time PCR negative (test code = jeff albicans by real-time PCR) jeff tropicalis by real-time PCR negative (test code = jeff tropicalis by real-time PCR) jeff parapsilosis by real-time negative PCR (test code = jeff parapsilosis by real-time PCR) jeff glabrata by real-time PCR negative (test code = jeff glabrata by real-time PCR) [facility] vaginosis DNA and score panel - Vaginal fluid by KWAN with probe [id number] 00:00:00 Test Item Value Reference Range Interpretation Comments gardnerella vaginalis by negative real-time PCR (test code = gardnerella vaginalis by real-time PCR) atopobium vaginae by negative real-time PCR (test code = atopobium vaginae by real-time PCR) bacterial vaginosis negative associated bacterium 2 (bvab2) by real-time PCR (test code = bacterial vaginosis associated bacterium 2 (bvab2) by real-time PCR) megasphaera species (type negative 1 and type 2) by (type1,type2) real-time PCR (test code = megasphaera species (type 1 and type 2) by real-time PCR) lactobacillus (bv & av see comment panel) by real time PCR (test code = lactobacillus (bv & av panel) by real time PCR) [facility] [Presence] in Unspecified specimen by Organism specific [id number] 00:00:00 Test Item Value Reference Range Interpretation Comments group B streptococcus (gbs) by negative real-time PCR (test code = group B streptococcus (gbs) by real-time PCR) [facility] vaginosis DNA and score panel - Vaginal fluid by KWAN with probe [id number] 00:00:00 Test Item Value Reference Range Interpretation Comments gardnerella vaginalis by negative real-time PCR (test code = gardnerella vaginalis by real-time PCR) atopobium vaginae by negative real-time PCR (test code = atopobium vaginae by real-time PCR) bacterial vaginosis negative associated bacterium 2 (bvab2) by real-time PCR (test code = bacterial vaginosis associated bacterium 2 (bvab2) by real-time PCR) megasphaera species (type negative 1 and type 2) by (type1,type2) real-time PCR (test code = megasphaera species (type 1 and type 2) by real-time PCR) lactobacillus (bv & av see comment panel) by real time PCR (test code = lactobacillus (bv & av panel) by real time PCR) [facility] GroupStreptococcus agalactiae [Presence] in Unspecified specimen by Organism specific [id number] 00:00:00 Test Item Value Reference Range Interpretation Comments group B streptococcus (gbs) by negative real-time PCR (test code = group B streptococcus (gbs) by real-time PCR) [facility] GroupBacterial vaginosis DNA and score panel - Vaginal fluid by KWAN with probe [id number] 00:00:00 Test Item Value Reference Range Interpretation Comments gardnerella vaginalis by negative real-time PCR (test code = gardnerella vaginalis by real-time PCR) atopobium vaginae by negative real-time PCR (test code = atopobium vaginae by real-time PCR) bacterial vaginosis negative associated bacterium 2 (bvab2) by real-time PCR (test code = bacterial vaginosis associated bacterium 2 (bvab2) by real-time PCR) megasphaera species (type negative 1 and type 2) by (type1,type2) real-time PCR (test code = megasphaera species (type 1 and type 2) by real-time PCR) lactobacillus (bv & av see comment panel) by real time PCR (test code = lactobacillus (bv & av panel) by real time PCR) [facility] GroupStreptococcus agalactiae [Presence] in Unspecified specimen by Organism specific [id number] 00:00:00 Test Item Value Reference Range Interpretation Comments group B streptococcus (gbs) by negative real-time PCR (test code = group B streptococcus (gbs) by real-time PCR) [facility] GroupB[facility] vaginosis DNA and score panel - Vaginal fluid by KWAN with probe [id number] 00:00:00 Test Item Value Reference Range Interpretation Comments gardnerella vaginalis by negative real-time PCR (test code = gardnerella vaginalis by real-time PCR) atopobium vaginae by negative real-time PCR (test code = atopobium vaginae by real-time PCR) bacterial vaginosis negative associated bacterium 2 (bvab2) by real-time PCR (test code = bacterial vaginosis associated bacterium 2 (bvab2) by real-time PCR) megasphaera species (type negative 1 and type 2) by (type1,type2) real-time PCR (test code = megasphaera species (type 1 and type 2) by real-time PCR) lactobacillus (bv & av see comment panel) by real time PCR (test code = lactobacillus (bv & av panel) by real time PCR) [facility] GroupStreptococcus agalactiae [Presence] in Unspecified specimen by Organism specific [id number] 00:00:00 Test Item Value Reference Range Interpretation Comments group B streptococcus (gbs) by negative real-time PCR (test code = group B streptococcus (gbs) by real-time PCR) [facility] GroupUrinalysis macro (dipstick) panel - [id number] 13:58:53 Test Item Value Reference Range Interpretation Comments Leukocytes (test code = Small Leukocytes) Nitrite (test code = Nitrite) negative Urobilinogen (test code = 1 Urobilinogen) Protein (test code = Protein) Trace pH (test code = pH) 6.0 Blood (test code = Blood) Negative Specific [place] (test code = 1.030 Specific [place]) Ketone (test code = Ketone) Trace Bilirubin (test code = Bilirubin) Negative Glucose (test code = Glucose) Negative Appearance (test code = Clear Appearance) Color (test code = Color) Dark Yellow [facility] GroupUrinalysis macro (dipstick) panel - [id number] 13:58:53 Test Item Value Reference Range Interpretation Comments Leukocytes (test code = Small Leukocytes) Nitrite (test code = Nitrite) negative Urobilinogen (test code = 1 Urobilinogen) Protein (test code = Protein) Trace pH (test code = pH) 6.0 Blood (test code = Blood) Negative Specific [place] (test code = 1.030 Specific [place]) Ketone (test code = Ketone) Trace Bilirubin (test code = Bilirubin) Negative Glucose (test code = Glucose) Negative Appearance (test code = Clear Appearance) Color (test code = Color) Dark Yellow [facility] (dipstick) panel - [id number] 13:58:53 Test Item Value Reference Range Interpretation Comments Leukocytes (test code = Small Leukocytes) Nitrite (test code = Nitrite) negative Urobilinogen (test code = 1 Urobilinogen) Protein (test code = Protein) Trace pH (test code = pH) 6.0 Blood (test code = Blood) Negative Specific [place] (test code = 1.030 Specific [place]) Ketone (test code = Ketone) Trace Bilirubin (test code = Bilirubin) Negative Glucose (test code = Glucose) Negative Appearance (test code = Clear Appearance) Color (test code = Color) Dark Yellow [facility] macro (dipstick) panel - [id number] 13:58:53 Test Item Value Reference Range Interpretation Comments Leukocytes (test code = Small Leukocytes) Nitrite (test code = Nitrite) negative Urobilinogen (test code = 1 Urobilinogen) Protein (test code = Protein) Trace pH (test code = pH) 6.0 Blood (test code = Blood) Negative Specific [place] (test code = 1.030 Specific [place]) Ketone (test code = Ketone) Trace Bilirubin (test code = Bilirubin) Negative Glucose (test code = Glucose) Negative Appearance (test code = Clear Appearance) Color (test code = Color) Dark Yellow [facility] macro (dipstick) panel - [id number] 13:58:53 Test Item Value Reference Range Interpretation Comments Leukocytes (test code = Small Leukocytes) Nitrite (test code = Nitrite) negative Urobilinogen (test code = 1 Urobilinogen) Protein (test code = Protein) Trace pH (test code = pH) 6.0 Blood (test code = Blood) Negative Specific [place] (test code = 1.030 Specific [place]) Ketone (test code = Ketone) Trace Bilirubin (test code = Bilirubin) Negative Glucose (test code = Glucose) Negative Appearance (test code = Clear Appearance) Color (test code = Color) Dark Yellow [facility] Auto Differential panel - [id number] 10:28:00 Test Item Value Reference Range Interpretation Comments white blood count (test code = 9.5 K/uL 4.0-11.5 white blood count) red blood count (test code = red 3.83 M/uL 3.80-5.20 blood count) hemoglobin (test code = 9.7 g/dL 10.5-15.7 L hemoglobin) hematocrit (test code = 32.9 % 34.0-50.0 L hematocrit) MCV [Entitic volume] (test code = 85.9 fL 86-100 L 42800-5) mean corpuscular hemoglobin (test 25.3 pg 26.2-33.4 L code = mean corpuscular hemoglobin) mean corpuscular HGB conc (test 29.5 g/dL 30-34 L code = mean corpuscular HGB conc) red cell distribution width (test 13.3 % 12.0-15.5 code = red cell distribution width) platelet count (test code = 171 K/uL 165-450 platelet count) mean platelet volume (test code = 12.2 fL 9.4-12.6 mean platelet volume) Segmented neutrophils/100 74.0 % 44.4-80.1 leukocytes in Blood (test code = 00483-0) Immature granulocytes [#/volume] 0.3 K/uL 0.0-0.03 H in Blood (test code = 57408-4) lymphocyte% (test code = 16.7 % 10.0-50.0 lymphocyte%) mono % (test code = mono %) 5.1 % 3.6-12.0 eos % (test code = eos %) 0.8 % 0.0-5.4 Basophils/100 leukocytes in 0.8 % 0.1-1.2 Unspecified specimen (test code = 57542-8) Band form neutrophils [#/volume] 7.05 K/uL 1.56-6.13 H in Blood (test code = 90982-7) Lymphocytes [#/volume] in 1.6 K/uL 1.18-3.74 Unspecified specimen by Automated count (test code = 85935-4) mono # (test code = mono #) 0.49 K/uL 0.24-0.86 eos # (test code = eos #) 0.08 K/uL 0.04-0.36 basophil # (test code = basophil 0.08 K/uL 0.01-0.08 #) NRBC% (test code = NRBC%) 0 /100 WBC 0-0.2 NRBC# (test code = NRBC#) 0 K/uL [facility] W Auto Differential panel - [id number] 10:28:00 Test Item Value Reference Range Interpretation Comments white blood count (test code = 9.5 K/uL 4.0-11.5 white blood count) red blood count (test code = red 3.83 M/uL 3.80-5.20 blood count) hemoglobin (test code = 9.7 g/dL 10.5-15.7 L hemoglobin) hematocrit (test code = 32.9 % 34.0-50.0 L hematocrit) MCV [Entitic volume] (test code = 85.9 fL 86-100 L 05792-0) mean corpuscular hemoglobin (test 25.3 pg 26.2-33.4 L code = mean corpuscular hemoglobin) mean corpuscular HGB conc (test 29.5 g/dL 30-34 L code = mean corpuscular HGB conc) red cell distribution width (test 13.3 % 12.0-15.5 code = red cell distribution width) platelet count (test code = 171 K/uL 165-450 platelet count) mean platelet volume (test code = 12.2 fL 9.4-12.6 mean platelet volume) Segmented neutrophils/100 74.0 % 44.4-80.1 leukocytes in Blood (test code = 08900-9) Immature granulocytes [#/volume] 0.3 K/uL 0.0-0.03 H in Blood (test code = 09636-8) lymphocyte% (test code = 16.7 % 10.0-50.0 lymphocyte%) mono % (test code = mono %) 5.1 % 3.6-12.0 eos % (test code = eos %) 0.8 % 0.0-5.4 Basophils/100 leukocytes in 0.8 % 0.1-1.2 Unspecified specimen (test code = 65254-7) Band form neutrophils [#/volume] 7.05 K/uL 1.56-6.13 H in Blood (test code = 24367-6) Lymphocytes [#/volume] in 1.6 K/uL 1.18-3.74 Unspecified specimen by Automated count (test code = 77448-4) mono # (test code = mono #) 0.49 K/uL 0.24-0.86 eos # (test code = eos #) 0.08 K/uL 0.04-0.36 basophil # (test code = basophil 0.08 K/uL 0.01-0.08 #) NRBC% (test code = NRBC%) 0 /100 WBC 0-0.2 NRBC# (test code = NRBC#) 0 K/uL [facility] W Auto Differential panel - [id number] 10:00:00 Test Item Value Reference Range Interpretation Comments white blood count (test code = 9.4 K/uL 4.0-11.5 white blood count) red blood count (test code = red 3.72 M/uL 3.80-5.20 L blood count) hemoglobin (test code = 10.1 g/dL 10.5-15.7 hemoglobin) hematocrit (test code = 33.2 % 34.0-50.0 L hematocrit) MCV [Entitic volume] (test code = 89.2 fL 86-100 00840-8) mean corpuscular hemoglobin (test 27.2 pg 26.2-33.4 code = mean corpuscular hemoglobin) mean corpuscular HGB conc (test 30.4 g/dL 30-34 code = mean corpuscular HGB conc) red cell distribution width (test 13.3 % 12.0-15.5 code = red cell distribution width) platelet count (test code = 158 K/uL 165-450 L platelet count) mean platelet volume (test code = 12.2 fL 9.4-12.6 mean platelet volume) Segmented neutrophils/100 70.8 % 44.4-80.1 leukocytes in Blood (test code = 27440-2) Immature granulocytes [#/volume] 0.3 K/uL 0.0-0.03 H in Blood (test code = 49031-9) lymphocyte% (test code = 17.4 % 10.0-50.0 lymphocyte%) mono % (test code = mono %) 6.2 % 3.6-12.0 eos % (test code = eos %) 1.1 % 0.0-5.4 Basophils/100 leukocytes in 0.9 % 0.1-1.2 Unspecified specimen (test code = 16253-3) Band form neutrophils [#/volume] 6.64 K/uL 1.56-6.13 H in Blood (test code = 46225-2) Lymphocytes [#/volume] in 1.6 K/uL 1.18-3.74 Unspecified specimen by Automated count (test code = 87215-5) mono # (test code = mono #) 0.58 K/uL 0.24-0.86 eos # (test code = eos #) 0.10 K/uL 0.04-0.36 basophil # (test code = basophil 0.08 K/uL 0.01-0.08 #) NRBC% (test code = NRBC%) 0 /100 WBC 0-0.2 NRBC# (test code = NRBC#) 0 K/uL [facility] Ab [Presence] in [id number] 10:00:00HIV P24 AgHIV-1/2 [facility]Re[facility] [Presence] in Serum by RPR 2020-08-09 10:00:00 Test Item Value Reference Range Interpretation Comments Reagin Ab [Presence] in Serum by nonreactive nonreactive RPR (test code = 78530-7) [facility] antibody screen [Presence] in Serum or Plasma 2020-08-09 10:00:00 Test Item Value Reference Range Interpretation Comments Blood group antibody screen negative [Presence] in Serum or Plasma (test code = 890-4) [facility]portUrinalysis macro (dipstick) panel - [id number] 13:44:47 Test Item Value Reference Range Interpretation Comments Leukocytes (test code = Leukocytes) Negative Nitrite (test code = Nitrite) negative Urobilinogen (test code = 2 Urobilinogen) Protein (test code = Protein) 30 pH (test code = pH) 5.5 Blood (test code = Blood) Negative Specific [place] (test code = 1.025 Specific [place]) Ketone (test code = Ketone) Small Bilirubin (test code = Bilirubin) Small Glucose (test code = Glucose) Negative Appearance (test code = Appearance) Clear Color (test code = Color) Yellow [facility]portUrinalysis macro (dipstick) panel - [id number] 13:44:47 Test Item Value Reference Range Interpretation Comments Leukocytes (test code = Leukocytes) Negative Nitrite (test code = Nitrite) negative Urobilinogen (test code = 2 Urobilinogen) Protein (test code = Protein) 30 pH (test code = pH) 5.5 Blood (test code = Blood) Negative Specific [place] (test code = 1.025 Specific [place]) Ketone (test code = Ketone) Small Bilirubin (test code = Bilirubin) Small Glucose (test code = Glucose) Negative Appearance (test code = Appearance) Clear Color (test code = Color) Yellow [facility]/TV + reflex HR [id number] 00:00:00 Test Item Value Reference Range Interpretation Comments chlamydia trachomatis by real-time negative PCR (reflex to azithromycin resistance by pyrosequencing) (test code = chlamydia trachomatis by real-time PCR (reflex to azithromycin resistance by pyrosequencing)) trichomonas vaginalis by real-time negative PCR (reflex to metronidazole resistance) (test code = trichomonas vaginalis by real-time PCR (reflex to metronidazole resistance)) neisseria gonorrhoeae by real-time negative PCR (reflex to antibiotic resistance by molecular analysis) (test code = neisseria gonorrhoeae by real-time PCR (reflex to antibiotic resistance by molecular analysis)) liquid Pap test with reflex to HPV negative type-detect 3.0 high risk if ASCUS (test code = liquid Pap test with reflex to HPV type-detect 3.0 high risk if ASCUS) [facility] [Presence] in [id number] 10:18:00HIV P24 AgHIV-1/2 [facility] [Presence] in Serum by RPR 2020-04-15 10:18:00 Test Item Value Reference Range Interpretation Comments Reagin Ab [Presence] in Serum by nonreactive nonreactive RPR (test code = 59865-4) [facility] virus surface Ag [Presence] in Serum 2020-04-15 10:15:00 Test Item Value Reference Range Interpretation Comments .hepatitis B surface antigen (test negative negative code = .hepatitis B surface antigen) [facility] W Auto Differential panel - [id number] 09:42:00 Test Item Value Reference Range Interpretation Comments white blood count (test code = 9.4 K/uL 4.0-11.5 white blood count) red blood count (test code = red 4.73 M/uL 3.80-5.20 blood count) hemoglobin (test code = 13.0 g/dL 10.5-15.7 hemoglobin) hematocrit (test code = 41.1 % 34.0-50.0 hematocrit) MCV [Entitic volume] (test code = 86.9 fL 86-100 50634-9) mean corpuscular hemoglobin (test 27.5 pg 26.2-33.4 code = mean corpuscular hemoglobin) mean corpuscular HGB conc (test 31.6 g/dL 30-34 code = mean corpuscular HGB conc) red cell distribution width (test 13.9 % 12.0-15.5 code = red cell distribution width) platelet count (test code = 171 K/uL 165-450 platelet count) mean platelet volume (test code = 12.8 fL 9.4-12.6 H mean platelet volume) Segmented neutrophils/100 79.1 % 44.4-80.1 leukocytes in Blood (test code = 99806-3) Immature granulocytes [#/volume] 0.1 K/uL 0.0-0.03 H in Blood (test code = 50104-7) lymphocyte% (test code = 14.2 % 10.0-50.0 lymphocyte%) mono % (test code = mono %) 5.4 % 3.6-12.0 eos % (test code = eos %) 0.3 % 0.0-5.4 Basophils/100 leukocytes in 0.4 % 0.1-1.2 Unspecified specimen (test code = 57782-2) Band form neutrophils [#/volume] 7.40 K/uL 1.56-6.13 H in Blood (test code = 02576-8) Lymphocytes [#/volume] in 1.3 K/uL 1.18-3.74 Unspecified specimen by Automated count (test code = 82865-1) mono # (test code = mono #) 0.51 K/uL 0.24-0.86 eos # (test code = eos #) 0.03 K/uL 0.04-0.36 L basophil # (test code = basophil 0.04 K/uL 0.01-0.08 #) NRBC% (test code = NRBC%) 0 /100 WBC 0-0.2 NRBC# (test code = NRBC#) 0 K/uL [facility] [Type] in [id number] 09:42:00 Test Item Value Reference Range Interpretation Comments Rh [Type] in Blood (test code = 4+ 85156-0) ABO and Rh group panel - Blood O positive (test code = 51648-3) [facility] antibody screen [Presence] in Serum or Plasma 2020-04-15 09:42:00 Test Item Value Reference Range Interpretation Comments Blood group antibody screen negative [Presence] in Serum or Plasma (test code = 890-4) [facility] GroupBacteria identified in Urine by [id number] 09:42:00Bacteria Ur CultMatagorda Medical GroupChromosome 13+18+21+X+Y aneuploidy in Blood by Molecular genetics method [id number] 00:00:00 Test Item Value Reference Range Interpretation Comments report summary (test code see notes = report summary) report note (test code = see notes report note) trisomy 13 age-based risk score (test code = trisomy 13 age-based risk score) trisomy 13 risk score (test code = trisomy 13 risk score) trisomy 13 age-based risk 19,389 (0.01%) text (test code = trisomy 13 age-based risk text) trisomy 13 risk score text <1/10,000 (<0.01%) (test code = trisomy 13 risk score text) trisomy 13 age-based risk fraction (test code = trisomy 13 age-based risk fraction) trisomy 13 risk score fraction (test code = trisomy 13 risk score fraction) trisomy 13 result text low risk (test code = trisomy 13 result text) trisomy 13 result comments see notes (test code = trisomy 13 result comments) trisomy 18 age-based risk score (test code = trisomy 18 age-based risk score) trisomy 18 risk score (test code = trisomy 18 risk score) trisomy 18 age-based risk 3,015 (0.03%) text (test code = trisomy 18 age-based risk text) trisomy 18 risk score text <1/10,000 (<0.01%) (test code = trisomy 18 risk score text) trisomy 18 age-based risk fraction (test code = trisomy 18 age-based risk fraction) trisomy 18 risk score fraction (test code = trisomy 18 risk score fraction) trisomy 18 result text low risk (test code = trisomy 18 result text) trisomy 18 result comments see notes (test code = trisomy 18 result comments) trisomy 21 age-based risk score (test code = trisomy 21 age-based risk score) trisomy 21 risk score (test code = trisomy 21 risk score) trisomy 21 age-based risk 1/1,140 (0.09%) text (test code = trisomy 21 age-based risk text) trisomy 21 risk score text <1/10,000 (<0.01%) (test code = trisomy 21 risk score text) trisomy 21 age-based risk fraction (test code = trisomy 21 age-based risk fraction) trisomy 21 risk score fraction (test code = trisomy 21 risk score fraction) trisomy 21 result text low risk (test code = trisomy 21 result text) trisomy 21 result comments see notes (test code = trisomy 21 result comments) monosomy X age-based risk score (test code = monosomy X age-based risk score) monosomy X risk score (test code = monosomy X risk score) monosomy X age-based risk 1/568 (0.18%) text (test code = monosomy X age-based risk text) monosomy X risk score text <1/10,000 (<0.01%) (test code = monosomy X risk score text) monosomy X age-based risk fraction (test code = monosomy X age-based risk fraction) monosomy X risk score fraction (test code = monosomy X risk score fraction) monosomy X result text low risk (test code = monosomy X result text) monosomy X result comments see notes (test code = monosomy X result comments) triploidy result text low risk (test code = triploidy result text) triploidy result comments see notes (test code = triploidy result comments) gender of fetus (test code male = gender of fetus) fraction (in %) 7.8 % (test code = fraction (in %)) fraction (test code 7.8% = fraction) footnotes (test code = see notes footnotes) boiler plate text (test see notes code = boiler plate text) references (test code = see notes references) approvals (test code = see notes approvals) contacts (test code = see notes contacts) [facility]PRE[facility] [id number] 16:13:00 Test Item Value Reference Range Interpretation Comments SODIUM (test code = 135.0 mmol/L 133-144 N NA) POTASSIUM (test code 3.7 mmol/L 3.5-5.1 N = K) CHLORIDE (test code 105 mmol/L 95-105 N = CL) CARBON DIOXIDE (test 21 mmol/L 21-32 N code = CO2) ANION GAP (test code 9.0 GAP calc 4.0-15.0 N = GAP) GLUCOSE (test code = 71 MG/DL 70-110 N GLU) BLOOD UREA NITROGEN 4 MG/DL 7-18 L (test code = BUN) GLOMERULAR 157 estGFR >60 The estimated FILTRATION RATE glomerular (test code = GFR) filtration rate is computed usingpatient ra ce, age, sex, and s roc creatinine. If any of theneeded da ta elements are mi ssing the Laboratory can notcompute an estimation of t he glomerular filtration rate .The GFR value units = ml/min/1.73 met er squared. EstimatedGFR va lues above 60 should be interpreted as >60, not anexact number.--- DRUG DOSAGE ALERT -- - Drug dosage adjustments uti lize different calculationpara meter s. CREATININE (test 0.49 MG/DL 0.55-1.30 L Results may be code = CREAT) depressed if p atient is takingN-Acetylc ystei ne (NAC) and Metamizole (Dipyrone). TOTAL PROTEIN (test 7.8 G/DL 6.4-8.2 N code = PROT) ALBUMIN (test code = 3.4 G/DL 3.4-5.0 N ALB) ALBUMIN/GLOBULIN 0.8 RATIO 1.2-2.2 L RATIO (test code = A/G) CALCIUM (test code = 9.2 MG/DL 8.5-10.1 N CA) BILIRUBIN TOTAL 0.33 MG/DL 0.00-1.00 N (test code = BILT) BILIRUBIN DIRECT < 0.10 MG/DL 0.00-0.30 N (test code = BILD) BILIRUBIN INDIRECT CALC [place]ING[place] MG/DL 0.2-1.3 L (test code = BILIND) SGOT/AST (test code 20 Unit/L 15-37 N = AST) SGPT/ALT (test code 19 Unit/L 12-78 N = ALT) ALKALINE PHOSPHATASE 58 Unit/L 45-117 N TOTAL (test code = ALKP) INDEX HEMOLYSIS 3 SMALL 25-50 1 NORMAL (test code = MG Index/DL HEMINDEX) INDEX ICTERIC (test 1 NORMAL <2 MG 1 NORMAL code = ICTINDEX) Index/DL INDEX LIPEMIA (test 1 NORMAL <50 1 NORMAL code = LIPINDEX) MG Index/DL HCG [id number] 16:13:00 Test Item Value Reference Range Interpretation Comments HCG SERUM (test 684930 mi-IU/ML 0-3 H HCG RANGES DURING code = HCG) NORMAL PREGNANC YPOST LMP 3-4 WEEKS 9 - 130 M IU/ML4-5 WEEKS 75 - 2,600 MIU/ML 5-6 WEEKS 85 0 - 20,800 MIU/M L6-7 WEEKS 4,00 0 - 100,200 MIU/ ML7-12 WEEKS 11,50 0 - 289,000 MIU/ ML12-16 WEEKS 18,30 0 - 137,000 MIU/ ML16-29 WEEKS 1,40 0 - 53,000 MIU/M L 29-41 WEEKS 94 0 - 60,000 MIU/M L - US PREG EVAL 1ST [id number] 16:03:00 Patient Name: ELLIE CHU Unit No: [id number] EXAMS: CPT CODE: [id number] US PREG EVAL 1ST TRIMTR 88638 INDICATION: 12 wk abdominal pain confirm iup LOCATION: T18 COMPARISON: None available. FINDINGS: Intrauterine gestational sac noted, with an average gestational sac diameter of 5.63 cm. This corresponds to a gestationalage by ultrasound of 12 weeks and 3 days. [place]-rump length is 5.76 cm. This correspondsto a gestational age by ultrasound of 12 weeks 2 days. heart tones are present [id number] bpm Right ovary measures 2 x 1.5 x 1.5 cm and is unremarkable in appearance. Left ovary measures 1.9 x 1.3 x 1.4 cm and is unremarkable in appearance. There is normal symmetric ovarian blood flow at this time bilaterally. Possible 3.7 cm uterine fibroid within the anterior uterus. IMPRESSION: 1. Early intrauterine as described. Continued followup is advised. at 1603 Reported and signed by: Sal Kolb MD CC: Benson Mandujano MD Technologist: Lynn Cohen Trnscrbd D/ (1603) [id number] Probe: Orig Print D/T: S: 04/04/2020 (1606) Probe: MONA Arias NAME: [address] PHYS: Benson Block MD, [place] [address] : 1995 AGE: 24 SEX: F LOC: B.ERS PHONE #: [phone] EXAM DATE: 04/04/2020 STATUS: REG ER FAX #: [phone] RAD NO: Page 1 Signed ReportCOMPREHENSIVE METABOLIC [id number] 15:40:00 Test Item Value Reference Range Interpretation Comments SODIUM (test code = 135.0 mmol/L 133-144 N NA) POTASSIUM (test code 3.7 mmol/L 3.5-5.1 N = K) CHLORIDE (test code 105 mmol/L 95-105 N = CL) CARBON DIOXIDE (test 21 mmol/L 21-32 N code = CO2) ANION GAP (test code 9.0 GAP calc 4.0-15.0 N = GAP) GLUCOSE (test code = 71 MG/DL 70-110 N GLU) BLOOD UREA NITROGEN 4 MG/DL 7-18 L (test code = BUN) GLOMERULAR 157 estGFR >60 The estimated FILTRATION RATE glomerular (test code = GFR) filtration rate is computed usingpatient ra ce, age, sex, and s roc creatinine. If any of theneeded da ta elements are mi ssing the Laboratory can notcompute an estimation of t he glomerular filtration rate .The GFR value units = ml/min/1.73 met er squared. EstimatedGFR va lues above 60 should be interpreted as >60, not anexact number.--- DRUG DOSAGE ALERT -- - Drug dosage adjustments uti lize different calculationpara meter s. CREATININE (test 0.49 MG/DL 0.55-1.30 L Results may be code = CREAT) depressed if p atient is takingN-Acetylc ystei ne (NAC) and Metamizole (Dipyrone). TOTAL PROTEIN (test 7.8 G/DL 6.4-8.2 N code = PROT) ALBUMIN (test code = 3.4 G/DL 3.4-5.0 N ALB) ALBUMIN/GLOBULIN 0.8 RATIO 1.2-2.2 L RATIO (test code = A/G) CALCIUM (test code = 9.2 MG/DL 8.5-10.1 N CA) BILIRUBIN TOTAL 0.33 MG/DL 0.00-1.00 N (test code = BILT) BILIRUBIN DIRECT < 0.10 MG/DL 0.00-0.30 N (test code = BILD) BILIRUBIN INDIRECT CALC [place] MG/DL 0.2-1.3 L (test code = BILIND) SGOT/AST (test code 20 Unit/L 15-37 N = AST) SGPT/ALT (test code 19 Unit/L 12-78 N = ALT) ALKALINE PHOSPHATASE 58 Unit/L 45-117 N TOTAL (test code = ALKP) INDEX HEMOLYSIS 3 SMALL 25-50 1 NORMAL (test code = MG Index/DL HEMINDEX) INDEX ICTERIC (test 1 NORMAL <2 MG 1 NORMAL code = ICTINDEX) Index/DL INDEX LIPEMIA (test 1 NORMAL <50 1 NORMAL code = LIPINDEX) MG Index/DL HCG [id number] 15:40:00 Test Item Value Reference Range Interpretation Comments HCG SERUM (test code = HCG) mi-IU/ML 0-3 COMPREHENSIVE METABOLIC [id number] 15:37:00 Test Item Value Reference Range Interpretation Comments SODIUM (test code = NA) 135.0 mmol/L 133-144 N POTASSIUM (test code = K) 3.7 mmol/L 3.5-5.1 N CHLORIDE (test code = CL) 105 mmol/L 95-105 N CARBON DIOXIDE (test code 21 mmol/L 21-32 N = CO2) ANION GAP (test code = 9.0 GAP calc 4.0-15.0 N GAP) GLUCOSE (test code = GLU) 71 MG/DL 70-110 N BLOOD UREA NITROGEN (test 4 MG/DL 7-18 L code = BUN) CREATININE (test code = MG/DL 0.55-1.30 CREAT) TOTAL PROTEIN (test code G/DL 6.4-8.2 = PROT) ALBUMIN (test code = ALB) 3.4 G/DL 3.4-5.0 N ALBUMIN/GLOBULIN RATIO RATIO 1.2-2.2 (test code = A/G) CALCIUM (test code = CA) 9.2 MG/DL 8.5-10.1 N BILIRUBIN TOTAL (test MG/DL 0.00-1.00 code = BILT) BILIRUBIN DIRECT (test MG/DL 0.00-0.30 code = BILD) BILIRUBIN INDIRECT (test MG/DL 0.2-1.3 code = BILIND) SGOT/AST (test code = Unit/L 15-37 AST) SGPT/ALT (test code = Unit/L 12-78 ALT) ALKALINE PHOSPHATASE Unit/L 45-117 TOTAL (test code = ALKP) INDEX HEMOLYSIS (test 3 SMALL 25-50 MG 1 NORMAL code = HEMINDEX) Index/DL INDEX ICTERIC (test code 1 NORMAL <2 MG 1 NORMAL = ICTINDEX) Index/DL INDEX LIPEMIA (test code 1 NORMAL <50 MG 1 NORMAL = LIPINDEX) Index/DL HCG [id number] 15:37:00 Test Item Value Reference Range Interpretation Comments HCG SERUM (test code = HCG) mi-IU/ML 0-3 URINALYSIS [id number] 15:21:00 Test Item Value Reference Range Interpretation Comments UA COLOR (test code = YELLOW DESCRIPT YELLOW COLU) UA APPEARANCE (test code TURBID (1+)HAZY-CLDY CLEAR A = APPU) DESCRIPT UA GLUCOSE DIPSTICK (test NORMAL (0) mg/dL 0 (NORMAL) code = DGLUU) UA BILIRUBIN DIPSTICK NEGATIVE (0.0) mg/dL (NEG) 0 (test code = BILU) UA KETONE DIPSTICK (test OVER >150 (4+) mg/dL (NEG) 0 A code = KETU) UA SPECIFIC GRAVITY (test 1.024 SG 1.001-1.035 code = SGU) UA BLOOD DIPSTICK (test NEGATIVE (0.00) 0 (NEG) code = NAVIN) mg/dL UA PH DIPSTICK (test code 6.0 pH UNITS 4.6-8.0 = VICENTE) UA PROTEIN DIPSTICK (test 30 (1+) mg/dL <30 (1+) A code = PROU) UA UROBILINIOGEN DIPSTICK 2 (1+) mg/Dl <2.0 (1+) A (test code = URO) UA NITRITE DIPSTICK (test NEGATIVE (0) SCREEN NEG code = AKHIL) UA LEUKOCYTE ESTERASE 75 Leuk/mcL (NEG) 0 A DIPSTICK (test code = LEUU) UA WBC (test code = WBCU) 3-5 #WBC/HPF 0-3 UA RBC (test code = RBCU) NONE #RBC/HPF 0-3 UA BACTERIA (test code = MODERATE >5 /HPF NONE-FEW A BACU) UA SQUAMOUS CELLS (test MODERATE >10 /UL NONE-SQepi code = SQU) UA MUCUS (test code = MANY /LPF NONE A MUCU) CBC W/AUTO [id number] 15:16:00 Test Item Value Reference Range Interpretation Comments WHITE BLOOD CELL (test code = 9.6 K/mm3 4.1-12.1 N WBC) RED BLOOD CELL (test code = RBC) 4.84 M/mm3 3.8-5.5 N HEMOGLOBIN (test code = HGB) 13.1 G/DL 10.6-15.8 N HEMATOCRIT (test code = HCT) 43.0 % 31.8-47.4 N MEAN CELL VOLUME (test code = 88.8 fL 80.1-101.1 N MCV) MEAN CELL HGB (test code = MCH) 27.1 pg 25.3-35.3 N MEAN CELL HGB CONCETRATION (test 30.5 G/DL 32.7-35.1 L code = MCHC) RED CELL DISTRIBUTION WIDTH 14.5 % 12.2-16.4 N (test code = RDW) RED CELL DISTRIBUTION WIDTH 46.4 fL 36.4-46.3 H (test code = RDW-SD) PLATELET COUNT (test code = PLT) 196 K/mm3 155-337 N MEAN PLATELET VOLUME (test code 12.1 fL 6.8-11.2 H = MPV) GRANULOCYTE % (test code = GR%) 76.0 % 37.8-82.6 N IMMATURE GRANULOCYTE % (test 0.4 % 0.0-2.0 N code = IG%) LYMPHOCYTE % (test code = LY%) 16.5 % 14.1-45.4 N MONOCYTE % (test code = MO%) 5.7 % 2.5-11.7 N EOSINOPHIL % (test code = EO%) 0.7 % 0.0-6.2 N BASOPHIL % (test code = BA%) 0.7 % 0.0-2.1 N NUCLEATED RBC % (test code = 0.0 /100WBC% 0.0-1.0 N NRBC%) GRANULOCYTE # (test code = GR#) 7.25 k/mm3 2.0-13.7 N IMMATURE GRANULOCYTE # (test 0.04 K/mm3 0.00-0.03 H code = IG#) LYMPHOCYTE # (test code = LY#) 1.58 K/mm3 0.6-3.8 N MONOCYTE # (test code = MO#) 0.54 K/mm3 0.11-0.59 N EOSINOPHIL # (test code = EO#) 0.07 K/mm3 0.0-0.4 N BASOPHIL # (test code = BA#) 0.07 K/mm3 0.0-0.1 N NUCLEATED RBC # (test code = 0.00 K/mm3 0.0-0.05 N NRBC#) test, [id number] 15:31:48 Test Item Value Reference Range Interpretation Comments Test (test code = negative Test) [facility] [id number] 15:29:45 Test Item Value Reference Range Interpretation Comments Test (test code = negative Test) [facility], [id number] 10:22:00 Test Item Value Reference Range Interpretation Comments Test (test code = negative Test) [facility], [id number] 15:28:21 Test Item Value Reference Range Interpretation Comments Test (test code = negative Test) [facility]
[2021-12-31] MEDS ORDERED: ONDANSETRON 4 MG/2 ML VIAL ONE ×3 (01:07→16:15)
[2021-12-31] MEDS ORDERED: NA CHLORIDE 0.9% 1,000 ML ONE (01:08)
[2021-12-31] MEDS ORDERED: MORPHINE 4 MG/ML SYR ONE (01:21)
[2021-12-31 01:29] LABS: Urine Blood Negative (Negative); Urine Glucose Negative (Negative); Urine Protein Negative (Negative); Urine Specific Gravity >=1.030 (1.005-1.030); Urine pH 6.5 (5.0-7.0)
[2021-12-31 01:29] LABS: Absolute Lymphocytes (CBC) 1.9 K/uL (0.7-4.9); Hematocrit 39.2 % (36.0-45.0); Lymphocytes % 15.8 % (15.3-44.8); MPV 9.2 fL (7.6-11.3); RBC Red Blood Cell Count 4.74 M/uL (3.86-4.86)
[2021-12-31 01:42] LABS: Albumin 3.7 g/dL (3.4-5.0); Bilirubin Total 0.4 mg/dL (0.2-1.0); Potassium 3.9 mmol/L (3.5-5.1); Protein, Total 7.6 g/dL (6.4-8.2)
[2021-12-31 01:50] LABS: Urine Bacteria <20 /HPF (<20); Urine Mucus 3+ /HPF (NONE SEEN); Urine RBC <5 /HPF (NONE SEEN)
--- NOTE | 2021-12-31 07:16 | EDPHYS ---
Physician Documentation [facility] Name: Cristi Ga Age: 26 yrs Sex: Female : 1995 Arrival Date: 12/31/2021 Time: 00:53 Bed 11 Private MD: ED Physician Octavio Henson HPI: 12/31 02:40 This 26 yrs old Female presents to ER via Ambulatory with complaints of mh7 Abdominal Pain. 02:40 The patient presents with abdominal pain in the upper abdomen. Onset: The mh7 symptoms/episode began/occurred 2 week(s) ago. 02:40 The symptoms do not radiate. mh7 02:40 Associated signs and symptoms: Pertinent positives: nausea and vomiting, nausea, mh7 Pertinent negatives: anorexia, blood in stools, chest pain, constipation, diarrhea, dysuria, fever, headache, hematuria, palpitations, shortness of breath, vaginal discharge, vomiting blood. The symptoms are described as intermittent, vague, waxing/waning. Modifying factors: The symptoms are alleviated by nothing, the symptoms are aggravated by nothing. Severity of pain: At its worst the pain was moderate 4 day(s) ago, in the emergency department the pain has improved moderately. 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 - Social history:: Smoking status: Patient denies any tobacco usage or history of. Patient/guardian denies using alcohol. ROS: 02:40 Constitutional: Negative for fever, chills, and weight loss, Eyes: Negative for injury, mh7 pain, redness, and discharge, ENT: Negative for injury, pain, and discharge, Neck: Negative for injury, pain, and swelling, Cardiovascular: Negative for chest pain, palpitations, and edema, Respiratory: Negative for shortness of breath, cough, wheezing, and pleuritic chest pain, Back: Negative for injury and pain, : Negative for injury, bleeding, discharge, and swelling, MS/Extremity: Negative for injury and deformity, Skin: Negative for injury, rash, and discoloration, Neuro: Negative for headache, weakness, numbness, tingling, and seizure, Psych: Negative for depression, anxiety, suicide ideation, homicidal ideation, and hallucinations, Allergy/Immunology: Negative for hives, rash, and allergies, Endocrine: Negative for neck swelling, polydipsia, polyuria, polyphagia, and marked weight changes, Hematologic/Lymphatic: Negative for swollen nodes, abnormal bleeding, and unusual bruising. Exam: 02:40 Head/Face: Normocephalic, atraumatic. Eyes: Pupils equal round and reactive to light, mh7 extra-ocular motions intact. Lids and lashes normal. Conjunctiva and sclera are non-icteric and not injected. Cornea within normal limits. Periorbital areas with no swelling, redness, or edema. Neck: Trachea midline, no thyromegaly or masses palpated, and no cervical lymphadenopathy. Supple, full range of motion without nuchal rigidity, or vertebral point tenderness. No Meningismus. Chest/axilla: Normal chest wall appearance and motion. Nontender with no deformity. No lesions are appreciated. Cardiovascular: Regular rate and rhythm with a normal S1 and S2. No gallops, murmurs, or rubs. Normal PMI, no JVD. No pulse deficits. Respiratory: Lungs have equal breath sounds bilaterally, clear to auscultation and percussion. No rales, rhonchi or wheezes noted. No increased work of breathing, no retractions or nasal flaring. 02:40 Constitutional: The patient appears in no acute distress, alert, awake, uncomfortable. 02:40 Abdomen/GI: Inspection: abdomen appears normal, Bowel sounds: normal, in all quadrants, Palpation: moderate abdominal tenderness, in the epigastric area, mass, is not appreciated, rebound tenderness, is not appreciated, voluntary guarding, is not appreciated, involuntary guarding, is not appreciated, no appreciated organomegaly, Indicators: McBurney's point is not tender, Moise's sign is negative, Rovsing's sign is negative, Obturator sign is negative, Psoas sign is negative, Liver: no appreciated palpable abnormalities, Hernia: not appreciated. 02:40 Back: No spinal tenderness. No costovertebral tenderness. Full range of motion. mh7 Skin: Warm, dry with normal turgor. Normal color with no rashes, no lesions, and no evidence of cellulitis. MS/ Extremity: Pulses equal, no cyanosis. Neurovascular intact. Full, normal range of motion. Neuro: Awake and alert, GCS 15, oriented to person, place, time, and situation. Cranial nerves II-XII grossly intact. Motor strength 5/5 in all extremities. Sensory grossly intact. Cerebellar exam normal. Normal gait. Psych: Awake, alert, with orientation to person, place and time. Behavior, mood, and affect are within normal limits. Vital Signs: 00:55 BP 132 / 69; Pulse 84; Resp 18; Temp 97.9(TE); Pulse Ox 100% on R/A; Weight 86.18 kg; ld1 Height 5 ft. 7 in. (170.18 cm); Pain 10/10; 04:57 BP 111 / 70; Pulse 81; Resp 16; Pulse Ox 100% on R/A; vc1 05:06 Temp 98.2; vc1 00:55 Body Mass Index 29.76 (86.18 kg, 170.18 cm) ld1 MDM: 07:13 Differential diagnosis: bowel obstruction, cholecystitis, Cholelithiasis, gastritis, mh7 gastroesophageal reflux disease, Irritable bowel syndrome, non-specific abd pain, pancreatitis, Peptic Ulcer Disease, Pyelonephritis, Ureterolithiasis, urinary tract infection. Data reviewed: vital signs, nurses notes, lab test result(s), CBC, electrolytes, urinalysis, radiologic studies, CT scan. Data interpreted: Pulse oximetry: on room air is 100 %. Interpretation: normal. Counseling: I had a detailed discussion with the patient and/or guardian regarding: the historical points, exam findings, and any diagnostic results supporting the discharge/admit diagnosis, lab results, radiology results, the need for further work-up and treatment in the hospital. Response to treatment: the patient's symptoms have mildly improved after treatment. 07:15 Patient medically screened. 7 12/31 00:58 Order name: CBC with Diff; Complete Time: 02:50 ld12/31 00:58 Order name: CMP; Complete Time: 02:50 ld12/31 00:58 Order name: Lipase; Complete Time: 02:50 ld12/31 00:58 Order name: Urine Microscopic Only; Complete Time: 02:50 ld1 12/31 01:29 Order name: Urine Dipstick-Ancillary; Complete Time: 02:50 EDMS 12/31 01:06 Order name: CT Abd/Pelvis - IV Contrast Only ld1 12/31 04:39 Order name: COVID-19 SARS RT PCR (Document "Date of Onset" if Symptomatic); Complete 7 Time: 06:13 12/31 00:58 Order name: IV Saline Lock; Complete Time: 01:12 12/31 00:58 Order name: Labs collected and sent; Complete Time: 01:12 12/31 00:58 Order name: Urine Dipstick-Ancillary (obtain specimen); Complete Time: 01:17 12/31 00:58 Order name: Urine Test (obtain specimen); Complete Time: :17 12/31 07:23 Order name: NPO EDMS Administered Medications: 01:06 CANCELLED (Not availabll): Pepcid (famotidine) 20 mg IVP once; dilute with 10 mL 0.9% ld1 NaCl; give over 2 minutes 01:12 Drug: NS 0.9% 1000 ml Route: IV; Rate: 1 bolus; Site: left antecubital; ld1 01:50 Follow up: Response: No adverse reaction; IV Status: Completed infusion; IV Intake: ld1 1000ml 01:12 Drug: Zofran (Ondansetron) 4 mg Route: IVP; Site: left antecubital; ld1 01:50 Follow up: Response: No adverse reaction ld1 01:17 Drug: morphine 4 mg Route: IVP; Infused Over: 4 mins; Site: left antecubital; ld1 01:50 Follow up: Response: No adverse reaction ld1 08:03 Drug: Zosyn (piperacillin-tazobactam) 3.375 grams Route: IVPB; Infused Over: 60 mins; iw Site: left antecubital; Disposition Summary: 12/31/21 07:15 Hospitalization Ordered Hospitalization Status: Inpatient Admission [facility] Provider: Lane Riley Condition: Stable [facility] Problem: new [facility] Symptoms: have improved [facility] Bed/Room Type: Standard [facility] Location: Telemetry/MedSurg (Inpatient)(12/31/21 13:23) eb Room Assignment: [facility](12/31/21 13:23) eb Diagnosis - Cholelithiasis possible cholecystitis [facility] Forms: - Medication Reconciliation Form [facility] - SBAR form [facility] Signatures: Dispatcher [employer] EDLatoya aVsquez RN RN Alexandria Monzon Maurice, MD MD [facility] Marsha Storey RN RN ld1 Corrections: (The following items were deleted from the chart) 01:06 00:58 Pepcid (famotidine) 20 mg IVP once; dilute with 10 mL 0.9% NaCl; give over 2 ld1 minutes ordered. ld1 07:15 Telemetry/MedSurg (Inpatient) [facility] iw : 07:15 [facility] iw 09:43 [facility] ER HOLD eb 09:43 ERHOLD- eb
--- NOTE | 2021-12-31 07:16 | ER ---
Nurse's Notes [facility] Name: Cristi Ga Age: 26 yrs Sex: Female : 1995 Arrival Date: 12/31/2021 Time: 00:53 Bed 11 Private MD: Diagnosis: Cholelithiasis possible cholecystitis Presentation: 12/31 00:55 Chief complaint: Patient states: Abd pain intermittent X 2 weeks. Today it got much ld1 worse. Mid epigastric pain. C/O nausea. Coronavirus screen: At this time, the client does not indicate any symptoms associated with coronavirus-19. Ebola Screen: No symptoms or risks identified at this time. Initial Sepsis Screen: Does the patient meet any 2 criteria? No. Patient's initial sepsis screen is negative. Does the patient have a suspected source of infection? No. Patient's initial sepsis screen is negative. Risk Assessment: Do you want to hurt yourself or someone else? Patient reports no desire to harm self or others. Onset of symptoms was December 31, 2021 at 00:56. 00:55 Method Of Arrival: Ambulatory ld1 00:55 Acuity: [place] 3 ld1 Triage Assessment: 00:56 General: Appears in no apparent distress. comfortable, Behavior is calm, cooperative, ld1 appropriate for age. Pain: Complains of pain in epigastric area Pain does not radiate. Pain currently is 10 out of 10 on a pain scale. Quality of pain is described as sharp, shooting, throbbing. EENT: No signs and/or symptoms were reported regarding the EENT system. Neuro: Level of Consciousness is awake, alert, obeys commands, Oriented to person, place, time, situation. Cardiovascular: Capillary refill < 3 seconds Patient's skin is warm and dry. Respiratory: Airway is patent Respiratory effort is even, unlabored, Respiratory pattern is regular, symmetrical. GI: Abdomen is round non-distended, Reports upper abdominal pain, nausea. : No signs and/or symptoms were reported regarding the genitourinary system. Derm: No signs and/or symptoms reported regarding the dermatologic system. Musculoskeletal: No signs and/or symptoms reported regarding the musculoskeletal system. 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 - Social history:: Smoking status: Patient denies any tobacco usage or history of. Patient/guardian denies using alcohol. Screenin:30 Abuse screen: Denies threats or abuse. Nutritional screening: No deficits noted. vc1 Tuberculosis screening: No symptoms or risk factors identified. Fall Risk None identified. Assessment: 03:00 Reassessment: See triage assessment. vc1 03:00 GI: Bowel sounds Abd is soft and non tender. vc1 04:00 Reassessment: Patient and/or family updated on plan of care and expected duration. Pain vc1 level reassessed. Patient is alert, oriented x 3, equal unlabored respirations, skin warm/dry/pink. 04:57 Reassessment: Patient and/or family updated on plan of care and expected duration. Pain vc1 level reassessed. Patient is alert, oriented x 3, equal unlabored respirations, skin warm/dry/pink. Patient states feeling better. Patient states symptoms have improved. 08:43 Reassessment: Patient appears in no apparent distress at this time. Patient and/or iw family updated on plan of care and expected duration. Pain level reassessed. Patient is alert, oriented x 3, equal unlabored respirations, skin warm/dry/pink. Vital Signs: 00:55 BP 132 / 69; Pulse 84; Resp 18; Temp 97.9(TE); Pulse Ox 100% on R/A; Weight 86.18 kg; ld1 Height 5 ft. 7 in. (170.18 cm); Pain 10/10; 04:57 BP 111 / 70; Pulse 81; Resp 16; Pulse Ox 100% on R/A; vc1 05:06 Temp 98.2; vc1 00:55 Body Mass Index 29.76 (86.18 kg, 170.18 cm) ld1 ED Course: 00:53 Patient arrived in ED. bp1 00:56 Triage completed. ld1 00:56 Arm band placed on right wrist. ld1 01:17 Urine Microscopic Only Sent. ld1 01:17 Inserted saline lock: 20 gauge in left antecubital area, using aseptic technique. Blood ld1 collected. 02:23 CT Abd/Pelvis - IV Contrast Only In Process Unspecified. EDMS 02:30 Patient has correct armband on for positive identification. Bed in low position. Call vc1 light in reach. Adult w/ patient. Pulse ox on. NIBP on. 02:36 Octavio Henson MD is Attending Physician. 7 04:56 Monica Pantoja, DENIA is Primary Nurse. vc1 07:14 Lane Riley MD is Hospitalizing Provider. [facility] 09:21 No provider procedures requiring assistance completed. Patient admitted, IV remains in iw place. Administered Medications: 01:06 CANCELLED (Not availabll): Pepcid (famotidine) 20 mg IVP once; dilute with 10 mL 0.9% ld1 NaCl; give over 2 minutes 01:12 Drug: NS 0.9% 1000 ml Route: IV; Rate: 1 bolus; Site: left antecubital; ld1 01:50 Follow up: Response: No adverse reaction; IV Status: Completed infusion; IV Intake: ld1 1000ml 01:12 Drug: Zofran (Ondansetron) 4 mg Route: IVP; Site: left antecubital; ld1 01:50 Follow up: Response: No adverse reaction ld1 01:17 Drug: morphine 4 mg Route: IVP; Infused Over: 4 mins; Site: left antecubital; ld1 01:50 Follow up: Response: No adverse reaction ld1 08:03 Drug: Zosyn (piperacillin-tazobactam) 3.375 grams Route: IVPB; Infused Over: 60 mins; iw Site: left antecubital; Medication: 09:21 VIS not applicable for this client. iw Intake: 01:50 IV: 1000ml; Total: 1000ml. ld1 Outcome: 07:15 Decision to Hospitalize by Provider. [facility] 09:21 Admitted to ER Hold. Please see [facility] for further documentation. iw 09:21 Condition: good 09:21 Discharge instructions given to patient, family, Instructed on the need for admit. 14:22 Patient left the ED. iw Signatures: Dispatcher [employer] EDMS Latoya Zimmer RN RN Rocio Nixon Maurice, MD MD [facility] Marsha Storey RN RN ld1 Calcote, Monica, RN RN vc1
[2021-12-31] MEDS ORDERED: ONDANSETRON 4 MG/2 ML VIAL IV PRN (07:19)
[2021-12-31] MEDS ORDERED: PIPERACIL/TAZO 3.375 GM VIAL IV ONE (07:37)
[2021-12-31] MEDS ORDERED: NA CHLORIDE 0.9% 100 ML ONE (07:37)
[2021-12-31] MEDS: PIPER TAZO 3.375 GM in NA CHLORIDE 0.9% 100 ML IV SCH ×2 (09:00→17:00)
[2021-12-31 09:19] VITALS: BMI 29.7
[2021-12-31] MEDS: MORPHINE 4 MG/ML SYR IV PRN ×3 (09:50→23:18)
[2021-12-31] MEDS: D5 0.45 NS 1,000 ML IV SCH ×2 (12:16→16:00)
[2021-12-31] MEDS ORDERED: D5 0.45 NS 1,000 ML IV ONE (12:16)
[2021-12-31] MEDS ORDERED: ROCURONIUM 50 MG/5 ML VIAL IV ONE (15:29)
[2021-12-31] MEDS ORDERED: FENTANYL CITR 100 MCG/2 ML ONE ×2 (15:29→16:36)
[2021-12-31] MEDS ORDERED: LIDOCAINE 2% MPF 5 ML VIAL ONE (15:29)
[2021-12-31] MEDS ORDERED: propofoL 200 MG/20 ML VIAL IV ONE (15:29)
[2021-12-31] MEDS ORDERED: Ringers Lactate 1,000 ML IV ONE (15:37)
--- NOTE | 2021-12-31 15:40 | P.HP ---
Date of Service: 12/31/21 PC: This 26-year-old female presented to the emergency room with severe right upper quadrant abdominal pain for diagnosis and treatment. HPC: Patient has been having abdominal pain off and on for the last couple of months. Episodes have gradually intensified. This morning when it started, was eased up a little bit but then came back again and she could no longer stand the discomfort. PSHx: Negative PMHx: G3 para 3 Social Hx: No known allergies Sys R: No cough, wheeze, shortness of breath. No chest pain or palpitations. D enies any urinary complaints O/E: Awake alert stable HEENT: Nonicteric Chest: Chest movement equal bilaterally Abd: Mild right upper quadrant tenderness Reading: Intact Data: CT scan demonstrates acute cholecystitis Impression: Acute cholecystitis with cholelithiasis, biliary colic Plan: I will take her to the operating room for laparoscopic possible open cholecystectomy with a cholangiogram. The risks of this procedure have been discussed. The possibility of bleeding, infection, injury to bile ducts blood vessels and intestines has been described. The possible need for an open and/or further surgeries and procedures was discussed. She understands and wants us to proceed.
[2021-12-31] MEDS ORDERED: dexAMETHasone 10 MG/ML VIAL ONE (16:15)
[2021-12-31] MEDS ORDERED: KETOROLAC 30 MG/ML INJ ONE (16:15)
[2021-12-31] MEDS ORDERED: GLYCOPYRROLATE 0.2 MG/ML SYR ONE (16:54)
[2021-12-31] MEDS ORDERED: NEOSTIGMINE 1 MG/ML -10 ML VIAL ONE (17:01)
--- NOTE | 2021-12-31 17:11 | P.OP ---
Preoperative diagnosis: Acute on chronic cholecystitis with cholelithiasis, biliary colic Postoperative diagnosis: The same Primary procedure: Laparoscopic cholecystectomy Secondary procedure: Cholangiogram Other procedure(s): Tap block Anesthesia: General Estimated blood loss: Less than 10 cc Specimen: Gallbladder and contents Operative Technique: The patient brought the operating room and placed supine on the table. After the induction of adequate general endotracheal anesthesia, the area of the abdomen was prepped with a DuraPrep solution, she was draped in usual aseptic manner. A subumbilical incision was made. This was brought down through the skin and subcutaneous tissue. Applying traction to the superior aspect of the incision with a towel clip we were able to elevate the fascia and peritoneum upwards. A Veress needle was used to enter the peritoneal cavity and created pneumoperitoneum to approximately 12 mmHg. A 5 mm trocar was now inserted in the right lateral side of the abdomen. With a 5 mm camera we were able to visualize the umbilicus just. A 12 mm trocar was now placed at this area and with a 10 camera we were able to insert our upper midline and her other right lateral trocar. The patient was then placed in reverse Trendelenburg. The table was turned to the left. We visualized the gallbladder itself. It could be seen to be quite edematous as it was not distended at the time a grasper was placed on the fundus. Another was placed on by Crowe's pouch. Applying lateral traction we were able to dissect out and expose the cystic duct and artery. The cystic duct having been identified was clipped at its junction with the gallbladder. An opening was made into the cystic duct through which we obtained a normal intraoperative cholangiogram there was good flow of contrast into the duodenum, we did not see any filling defects. The catheter was now removed. The distal portion of the cystic duct was now clipped and the structure divided. The cystic artery was identified clipped and divided in the usual fashion. The gallbladder was now dissected free from the liver bed, placed into an Endo Catch, and brought out through the umbilical trocar site. Attention was turned towards the right upper quadrant. Irrigating fluid was aspirated from the peritoneal cavity. The surgical site was inspected to ensure adequate hemostasis. Some fluid from the pelvis was also removed and a trickle down during the procedure. At this point attention was turned back towards the umbilical area. The fascia was approximated using 2 absorbable sutures placed using the Endo Close. The pneumoperitoneum was now collapsed, the sutures tied, and cynthia were applied to the skin. At the end of the procedure she was stable and sent to the recovery room. Needle sponge instrument count were correct. No drains were placed. Complications: None Transferred to: Recovery Room Condition: Good
[2021-12-31] MEDS: HYDROMORPHONE HCL 1 MG/ML INJ ONE ×2 (17:22→17:33)
--- NOTE | 2021-12-31 17:44 | RAD REPORT ---
EXAM DESCRIPTION: RAD - Cholangiogram Oper-Xray Or - 12/31/2021 5:31 pm FINDINGS: Three portable C-arm views were obtained during fluoroscopic assisted intraoperative chola ngiogram. No suspicious or unexpected findings. Fluoro time was less than 0.1 minutes. Cumulative dos e was 1.18 mGy.
[2021-12-31] MEDS ORDERED: HYDROMORPHONE HCL 1 MG/ML INJ ONE (17:46)
[2021-12-31] MEDS: HYDROCODONE/APAP 7.5/325 MG TAB PO PRN (20:14)
[2022-01-01] MEDS: D5 0.45 NS 1,000 ML IV SCH ×2 (01:23→07:40)
[2022-01-01] MEDS: HYDROCODONE/APAP 7.5/325 MG TAB PO PRN ×2 (07:39→13:35)
[2022-01-01 08:25] VITALS: O2SAT 100
[2022-01-01 13:08] VITALS: TEMP 97.7
--- NOTE | 2022-01-01 17:03 | P.PN ---
Date of Service: 01/01/22 S: Patient feels well, still little bit sore around her umbilicus. O: Vital signs are stable, wounds intact A: Surgically stable P: Discharge home
[2022-01-01 17:56] VITALS: BP 112/69
--- NOTE | 2022-01-02 11:50 | RAD REPORT ---
EXAM DESCRIPTION: CT - Abdomen Pelvis W Contrast - 12/31/2021 7:26 am CLINICAL HISTORY: 26 years, Female, Epigastric pain COMPARISON: None TECHNIQUE: Contrast-enhanced images of the abdomen and pelvis were performed utilizing 5 mm slice th ickness at 5 mm interval reconstruction from the lung bases to the ischial tuberosities after the adm inistration of IV contrast. In addition multiplanar reformats in the coronal and sagittal plane were obtained and reviewed. This exam was performed according to our departmental dose-optimization protocol, which includes auto mated exposure control, adjustment of the mA and/or kV according to patient size and/or use of iterat kianna reconstruction technique. FINDINGS: The lung bases demonstrate to be clear. The liver tiny hypodensities within the right hepatic lobe could correspond to tiny cyst although too small to characterize by CT criteria. Otherwise the liver, pancreas, spleen and adrenal glands demon strate to be unremarkable, no focal lesions are noted. Rim high density material within the fundus of the gallbladder corresponding to cholelithiasis on coronal image 34-32. The kidneys demonstrate normal uptake of contrast media. No evidence for nephrolithiasis and/or hydro nephrosis. Grossly the unopacified stomach, small bowel and large bowel demonstrate to be within normal limits. There is no evidence for bowel dilatation and/or free air. The appendix is normal. The urinary bladder demonstrate to be unremarkable. The uterus is unremarkable. There are no adnexa l masses. The aorta demonstrate to be normal. There is no retroperitoneal lymphadenopathy. There is no ascites. The rest of the soft tissue and bony structures are within normal limits. IMPRESSION: Cholelithiasis. Otherwise unremarkable CT scan of the abdomen and pelvis with contrast. The liver tiny hypodensities within the right hepatic lobe could correspond to tiny cyst although too small to characterize by CT criteria. Electronically signed by: Merrill Gautam MD 12/31/2021 3:24 AM CDT Due to temporary technical issues with the PACS/Fluency reporting system, reports are being signed by the in house radiologist without review as a courtesy to ensure prompt reporting. The interpreting r adiologist is fully responsible for the content of the report.
== END 2022-01-01 18:00 | disposition home health service (06) | DRG 419 ==
LOC: ER 00:50 → ERHOLD 07:18 → 4TH 14:08
PROVIDERS: ADMIT Surgery; ATTEND Surgery
PROC: BF532Z0 Other Imaging of Gallbladder and Bile Ducts using Fluorescing Agent, Intraoperative (ICD-10-PCS; 2021-12-31)
PROC: 0FT44ZZ Resection of Gallbladder, Percutaneous Endoscopic Approach (ICD-10-PCS; principal; 2021-12-31 15:30)
DX: K80.66 Calculus of gallbladder and bile duct with acute and chronic cholecystitis without obstruction (principal)
CPT/HCPCS: 36415; 74177; 74300; 80053; 81003; 81015; 83690; 85025; 88304; 96361; 96374; 96375; 99285; J1100; J1170; J2405; J2543; J2704; J2710; J3010; J7030; J7120; J7799; Q9967; U0003

== ENCOUNTER 2022-11-21 17:11 | Emergency (ER) | payer OTHER ==
--- OUTSIDE RECORDS SUMMARY | 2022-11-21 17:26 | XMS REPORT | Continuity of Care Document ---
:[address] [facility] t Address [address] [place] [address] Care Team Providers Name Role Phone White_M Attending Clinician Unavailable RUPERT Attending Clinician Unavailable Keyana_Donna Attending Clinician Unavailable Rutledge_L Attending Clinician Unavailable White_M Admitting Clinician Unavailable RUPERT Admitting Clinician Unavailable Keyana_Donna Admitting Clinician Unavailable Rutledge_L Admitting Clinician Unavailable Jadiel Rodriguez Admitting Clinician Unavailable Payers Payer Name Policy Type Policy Number Effective Date Expiration Date Kim aguilar [facility] D [id number] 2017 Choice Medicaid 00:00:00 [facility] D [id number] 2012 2012 Choice Medicaid 00:00:00 00:00:00 [facility] [id number] 2020 CHOICE (MEDICAID 00:00:00 [place]PLAC[place] - [place] [id number] [place] [id number] HEALTH PROGRAM - FAMILY PLANNING Problems Condition Condition Condition Status Onset Resolution Last Treating Co mments Source Name Details Category Date Date Treatment Clinician Date Contracept Contracept Problem Active [facility] ion using ion Using - da injectable Injectable 00:00: Me dical contracept Contracept 00 Gr oup kianna kianna medication Medication History of History of Problem Active M [facility] 3 3 da miscarriag [facility] d[facility] es es [facility] Allergies, Adverse Reactions, Alerts Allergy Allergy Status Severity Reaction(s) Onset Inactive Treating Comm ents Source Name Type Date Date Clinician No Known DA Active [facility]04 [place] [facility] No Known DA Active [facility] 04-04 [place] [facility] No Known DA Active [facility] Allergie 01-28 [place] [facility] No Known DA Active [facility] Allergie 01-28 [place] 00:[facility] Social History Smoking Status Start Date Stop Date Source Never Smoker [facility] Medications Ordered Filled Start [...] intramuscu ar route. ar route. lar route. Depo-Timber Surveyor Depo-Timber Surveyor No 1mL Depo-Prove [place] [facility] 150 mg/mL [...] intramuscu ar route. ar route. lar route. Depo-Timber Surveyor Depo-Timber Surveyor No 1mL Depo-Prove [place] [facility] 150 mg/mL a 150 mg/mL ra 150 da intramuscul intramuscul mg/mL Medical ar syringe ar syringe intramuscu Group Inject 1 mL Inject 1 mL lar every 3 every 3 syringe months by months by Inject 1 intramuscul intramuscul mL every 3 ar route. ar route. months by intramuscu lar route. hydrocodone hydrocodone No hydrocodon [place] 10 10 e 10 da mg-acetamin mg-acetamin mg-acetami Medical ophen 325 ophen 325 nophen 325 Group mg tablet mg tablet mg tablet TAKE ONE TAKE ONE TAKE ONE (1) TABLET (1) TABLET (1) TABLET BY MOUTH BY MOUTH BY MOUTH THREE TIMES THREE TIMES THREE A DAY. A DAY. TIMES A DAY. medroxyprog medroxyprog No 1mL medroxypro [place] esterone [...] Source Name Name Tdap Tdap 2018-02-14 Completed [facility] Tdap Tdap 2018-02-14 Completed [facility]:18[facility] Tdap Tdap 2018-02-14 Completed [facility] Tdap Tdap 2018-02-14 Completed [facility] Vital Signs Vital Name Observation Time Observation Value Comments Source BP Diastolic 2022-06-06 00:00:00 92 mm[Hg] [facility] Height 2022-06-06 00:00:00 67 [in_i] [facility] BMI (Body Mass 2022-06-06 00:00:00 31.7 kg/m2 [facility]) Group BP Systolic 2022-06-06 00:00:00 144 mm[Hg] [facility] Body Weight 2022-06-06 00:00:00 202.6 [lb_av] [facility] BP Diastolic 2021-12-13 00:00:00 78 mm[Hg] [facility] Height 2021-12-13 00:00:00 67 [in_i] [facility] BMI (Body Mass 2021-12-13 00:00:00 29.6 kg/m2 [facility] Index) Group BP Systolic 2021-12-13 00:00:00 111 mm[Hg] [facility] Body Weight 2021-12-13 00:00:00 189.3 [lb_av] [facility] BP Diastolic 2021-05-31 00:00:00 74 mm[Hg] [facility] Height 2021-05-31 00:00:00 67 [in_i] [facility] BMI (Body Mass 2021-05-31 00:00:00 29.7 kg/m2 [facility] Index) Group BP Systolic 2021-05-31 00:00:00 124 mm[Hg] [facility] Body Weight 2021-05-31 00:00:00 189.6 [lb_av] [facility] Height 2021-02-16 00:00:00 67 [in_i] [facility] BP Diastolic 2020-11-12 00:00:00 80 mm[Hg] [facility] Height 2020-11-12 00:00:00 67 [in_i] [facility] BMI (Body Mass 2020-11-12 00:00:00 25.1 kg/m2 [facility]) Group BP Systolic 2020-11-12 00:00:00 128 mm[Hg] [facility] Body Weight 2020-11-12 00:00:00 160.1 [lb_av] [facility] BP Diastolic 2020-10-11 00:00:00 78 mm[Hg] [facility] Height 2020-10-11 00:00:00 67 [in_i] [facility] BMI (Body Mass 2020-10-11 00:00:00 25.2 kg/m2 [facility]) Group BP Systolic 2020-10-11 00:00:00 115 mm[Hg] [facility] Body Weight 2020-10-11 00:00:00 160.9 [lb_av] [facility] BP Diastolic 2020-10-05 00:00:00 81 mm[Hg] [facility] Height 2020-10-05 00:00:00 67 [in_i] [facility] BMI (Body Mass 2020-10-05 00:00:00 25 kg/m2 [facility] Index) Group BP Systolic 2020-10-05 00:00:00 121 mm[Hg] [facility] Body Weight 2020-10-05 00:00:00 159.6 [lb_av] [facility] BP Diastolic 2020-09-28 00:00:00 76 mm[Hg] [facility] Height 2020-09-28 00:00:00 67 [in_i] [facility] BMI (Body Mass 2020-09-28 00:00:00 25 kg/m2 [facility]) Group BP Systolic 2020-09-28 00:00:00 115 mm[Hg] [facility] Body Weight 2020-09-28 00:00:00 159.6 [lb_av] [facility] BP Diastolic 2020-09-14 00:00:00 75 mm[Hg] [facility] Height 2020-09-14 00:00:00 67 [in_i] [facility] BMI (Body Mass 2020-09-14 00:00:00 24.7 kg/m2 [facility]) Group BP Systolic 2020-09-14 00:00:00 116 mm[Hg] [facility] Body Weight 2020-09-14 00:00:00 157.4 [lb_av] [facility] BP Diastolic 2020-08-30 00:00:00 71 mm[Hg] [facility] Height 2020-08-30 00:00:00 67 [in_i] [facility] BMI (Body Mass 2020-08-30 00:00:00 23.9 kg/m2 [facility]) Group BP Systolic 2020-08-30 00:00:00 105 mm[Hg] [facility] Body Weight 2020-08-30 00:00:00 152.3 [lb_av] [facility] BP Diastolic 2020-08-09 00:00:00 73 mm[Hg] [facility] Height 2020-08-09 00:00:00 67 [in_i] [facility] BMI (Body Mass 2020-08-09 00:00:00 23.4 kg/m2 [facility]) Group BP Systolic 2020-08-09 00:00:00 112 mm[Hg] [facility] Body Weight 2020-08-09 00:00:00 149.3 [lb_av] [facility] BP Diastolic 2020-06-04 00:00:00 66 mm[Hg] [facility] Height 2020-06-04 00:00:00 67 [in_i] [facility] BMI (Body Mass 2020-06-04 00:00:00 22.3 kg/m2 [facility] Group BP Systolic 2020-06-04 00:00:00 110 mm[Hg] [facility] Body Weight 2020-06-04 00:00:00 142.7 [lb_av] [facility] BP Diastolic 2020-05-06 00:00:00 72 mm[Hg] [facility] Height 2020-05-06 00:00:00 67 [in_i] [facility] BMI (Body Mass 2020-05-06 00:00:00 22.1 kg/m2 [facility]) Group BP Systolic 2020-05-06 00:00:00 102 mm[Hg] [facility] Body Weight 2020-05-06 00:00:00 140.9 [lb_av] [facility] BP Diastolic 2020-04-15 00:00:00 74 mm[Hg] [facility] Height 2020-04-15 00:00:00 67 [in_i] [facility] BMI (Body Mass 2020-04-15 00:00:00 22.3 kg/m2 [facility]) Group BP Systolic 2020-04-15 00:00:00 114 mm[Hg] [facility] Body Weight 2020-04-15 00:00:00 142.2 [lb_av] [facility] BP Diastolic 2019-06-12 00:00:00 76 mm[Hg] [facility] Height 2019-06-12 00:00:00 67 [in_i] [facility] BMI (Body Mass 2019-06-12 00:00:00 23.4 kg/m2 [facility]) Group BP Systolic 2019-06-12 00:00:00 133 mm[Hg] [facility] Body Weight 2019-06-12 00:00:00 149.1 [lb_av] [facility] BP Diastolic 2019-03-11 00:00:00 72 mm[Hg] [facility] Height 2019-03-11 00:00:00 67 [in_i] [facility] BMI (Body Mass 2019-03-11 00:00:00 22.3 kg/m2 [facility]) Group BP Systolic 2019-03-11 00:00:00 119 mm[Hg] [facility] Body Weight 2019-03-11 00:00:00 142.1 [lb_av] [facility] BP Diastolic 2018-12-09 00:00:00 78 mm[Hg] [facility] Height 2018-12-09 00:00:00 67 [in_i] [facility] BMI (Body Mass 2018-12-09 00:00:00 22.2 kg/m2 [facility]) Group BP Systolic 2018-12-09 00:00:00 124 mm[Hg] [facility] Body Weight 2018-12-09 00:00:00 141.5 [lb_av] [facility] BP Diastolic 2018-09-12 00:00:00 82 mm[Hg] [facility] Height 2018-09-12 00:00:00 67 [in_i] [facility] BMI (Body Mass 2018-09-12 00:00:00 22.3 kg/m2 [facility]) Group BP Systolic 2018-09-12 00:00:00 128 mm[Hg] [facility] Body Weight 2018-09-12 00:00:00 142.5 [lb_av] [facility] Procedures Procedure Date / Time Performing Clinician Source Performed non-stress test 2020-10-05 00:00:00 [facility] US, obstetric, limited 2020-09-28 00:00:00 [facility] US, obstetric, limited 2020-08-30 00:00:00 [facility] ord Medical Group ULTRASOUND REPEAT 2020-08-09 00:00:00 [facility] ULTRASOUND, 2020-05-06 [facility] UTERUS REAL TIME WITH Group IMAGE DOC, AND MATERNAL EVAL PLUS DETAILED ANATOMIC EXAMINATION, TRANSABDOMINAL APPROACH; SINGLE OR FIRST GESTATION US, obstetric, limited 2020-05-06 00:00:00 [facility] ord [facility] US, obstetric, limited 2020-04-15 00:00:00 [facility] Plan of Care Planned Activity Planned Date Details Comments Source Diagnostic Test 2022-06-06 test, [facility] Pending 00:00:00 urine [code = Group test, urine] Instructions [facility] Encounters Start End Encounter Admission Attending Care Care Encounter Source Date/Time Date/Time Type Type Clinicians Facility Department ID 2021-10-15 [facility] [id number] [place] 01:17:54 [facility] 2022-11-14 2022-11-14 Outpatient White_M MMG MMG [id number] [place] 00:00:00 00:00:00 0425 [facility] 2022-11-13 2022-11-13 Outpatient White_M MMG MMG [id number] [place] 00:00:00 00:00:00 0424 [facility] 2022-10-14 2022-10-14 Outpatient White_M MMG MMG [id number] [place] 00:00:00 00:00:00 0325 [facility] 2022-09-09 2022-09-09 Outpatient White_M MMG MMG [id number] [place] 00:00:00 00:00:00 0218 [facility] 2022-07-05 2022-07-05 Outpatient White_M MMG MMG [id number] [place] 00:00:00 00:00:00 1214 [facility] 2022-07-04 2022-07-04 Outpatient White_M MMG MMG [id number] [place] 00:00:00 00:00:00 1213 [facility] 2022-06-12 2022-06-12 Outpatient White_M MMG MMG [id number] [place] 00:00:00 00:00:00 1121 [facility] 2022-06-10 2022-06-10 Outpatient White_M MMG MMG [id number] [place] 00:00:00 00:00:00 1119 [facility] 2022-06-06 2022-06-06 Outpatient White_M MMG MMG [id number] [place] 00:00:00 00:00:00 1115 [facility] 2022-06-06 2022-06-06 Mary MMG [place] - [id number] M [facility] 00:00:00 00:00:00 Discovery rell Gómez [facility]: [address], [place] [address] , Ph. [phone] 2022-02-03 2022-02-03 Outpatient LISTER_JOSE KAPOOR [facility] [id number] [place] 09:50:00 09:50:[address] [facility] 2022-02-01 2022-02-01 Outpatient White_M MMG MMG [id number] [place] 00:00:00 00:00:00 0713 [facility] 2021-12-13 2021-12-13 Mary White_M MMG [place] - [id number] [place] 00:00:00 00:00:00 Discovery Dalia 0524 rell [facility]-: [address] [address] , Ph. [phone] 2021-11-24 2021-11-24 Outpatient White_M MMG [facility] [id number] [place] 03:26:00 03:26:00 0505 da [facility] 2021-08-31 2021-08-31 George White_[place] - [id number] [place] 00:00:00 00:00:00 Discovery Donna 0209 rell MD: [address] [place] [address] , Ph. [phone] 2021-05-31 2021-05-31 George White_M MMG [place] - [id number] [place] 00:00:00 00:00:00 Discovery Donna 1109 rell MD: [address] [place] [phone] , Ph. [phone] 2021-02-16 2021-02-16 Katerin White_M MM [place] - [id number] [place] 00:00:00 00:00:00 Memo Cardoso 0728 rell [facility] MD: [address] [place] [address] , Ph. [phone] 2020-11-12 2020-11-12 Mary White_[place] - [id number] [place] 00:00:00 00:00:00 Discovery Dalia 0423 rell [employer]: [address] [address], [place] [address] , Ph. [phone] 2020-11-11 2020-11-11 Outpatient G_Pappas MMG MM [id number] [place] 04:36:00 04:36:00 0422 rell [facility] 2020-11-04 2020-11-04 Outpatient G_Pappas MMG MMG [id number] [place] 11:31:00 11:31:00 0415 [facility] 2020-10-20 2020-10-20 Outpatient G_Pappas MMG [facility] [id number] [place] 04:28:00 04:28:00 0331 [facility] 2020-10-11 2020-10-11 George G_[place]app[place] MMG [place] - [id number] [place] 00:00:00 00:00:00 Discovery Donna 0322 rell MD: [address] [place] [phone] , Ph. [phone] 2020-10-05 2020-10-05 George G_[place]app[place] MMG [place] - [id number] [place] 00:00:00 00:00:00 Discovery Donna 0316 da MD: [address] [place] [address] , Ph. [phone] 2020-09-28 2020-09-28 [place] - [id number] [id number] [place] 00:00:00 00:00:00 Discovery Donna 0309 rell MD: [address] [place] [phone] , Ph. [phone] 2020-09-14 2020-09-14 [place] - [id number] 021 [place] 00:00:00 00:00:00 Memo Cardoso 0223 rell [facility] Medic[facility] castro MD: [address] [place] [address] , Ph. [phone] 2020-08-30 2020-08-30 [place] - [id number] 021 [place] 00:00:00 00:00:00 Memo Cardoso 0208 rell [facility] Medic[facility] castro MD: [address] [place] [address] , Ph. [phone] 2020-08-09 2020-08-09 Katerin Andersonledge_[place] - [id number] 021 [place] 00:00:00 00:00:00 Memo Cardoso 0118 Oleg Serrano Medicmar castro MD: [address] [place] [phone] , Ph. [phone] 2020-06-09 2020-06-09 Outpatient Rutledge_L MMG MMG [id number] [place] 02:40:00 02:40:00 1118 da [facility] 2020-06-04 2020-06-04 Katerin Rutledge_[place] - [id number] [id number] [place] 00:00:00 00:00:00 Memo Cardoso 1113 Oleg Serrano MD: [address] [place] [address] , Ph. [phone] 2020-06-03 2020-06-03 Outpatient Rutledge_L MMG MMG [id number] [place] 11:29:00 11:29:00 1112 rell [facility] 2020-05-06 2020-05-06 George G_[place]app[place] - [id number] [place] 00:00:00 00:00:00 Discovery Donna 1015 da MD: [address] [place] [phone] , Ph. [phone] 2020-04-15 2020-04-15 Corina Mckenna G_Pappas MMG [place] - [id number] [place] 00:00:00 00:00:00 Discovery Rajesh 0924 da WHNP: [address] [address] , Ph. [phone] 2020-04-12 2020-04-12 Outpatient G_Pappas MMG MMG [id number] [place] 12:04:00 12:04:00 0921 da [facility] 2020-04-04 2020-04-07 Inpatient [facility]OL[facility] [id number] [facility] 14:26:00 02:24:29 46 [facility] 2020-01-28 2020-01-28 Outpatient PARIS Cortes [place] 03:48:00 03:48:00 SSA 0708 da [facility] 2019-06-28 2019-06-28 Outpatient G_Pappas [facility] [id number] [place] 12:23:00 12:23:00 1207 da [facility] 2019-06-12 2019-06-12 George [facility] [place] - [id number] [place] 00:00:00 00:00:00 Discovery Donna 1121 rell MD: [address] [place] [phone] , Ph. [phone] 2019-03-11 2019-03-11 [place] - [id number] [place] 00:00:00 00:00:00 Discovery Donna 0820 rell MD: [address] [place] [address] , Ph. [phone] 2018-12-09 2018-12-09 [place] - [id number] [place] 00:00:00 00:00:00 Discovery Donna 0520 da MD: [address] [place] [address] , Ph. [phone] 2018-09-12 2018-09-12 George [facility] [place] - [id number] [place] 00:00:00 00:00:00 Discovery Donna 0221 rell MD: [address] [place] [address] , Ph. [phone] Results Test Description Test Time Test Comments Results Result Comments Source test, urine 2022-06-06 15:13:23 Test Item Value Reference Range Interpretation Comme nts Test (test code = Test) negative [facility], [id number] 11:27:54 Test Item Value Reference Range Interpretation Comments Test (test code = negative Test) [facility], [id number] 13:59:49 Test Item Value Reference Range Interpretation Comments Test (test code = negative Test) [facility], [id number] 09:08:31 Test Item Value Reference Range Interpretation Comments Test (test code = negative Test) [facility] W Auto Differential panel - [id number] 08:58:00 Test Item Value Reference Range Interpretation Comments white blood count (test code = 10.8 K/uL 4.0-11.5 white blood count) red blood count (test code = red 3.02 M/uL 3.80-5.20 L blood count) hemoglobin (test code = 6.9 g/dL 10.5-15.7 L hemoglobin) hematocrit (test code = 25.0 % 34.0-50.0 L hematocrit) MCV [Entitic volume] (test code = 82.8 fL 86-100 L 06642-7) mean corpuscular hemoglobin (test 22.8 pg 26.2-33.4 [...] 44.4-80.1 leukocytes in Blood (test code = 24233-1) Immature granulocytes [#/volume] 0.1 K/uL 0.0-0.03 H in Blood (test code = 62224-0) lymphocyte% (test code = 20.0 % 10.0-50.0 lymphocyte%) mono % (test code = mono %) 8.6 % 3.6-12.0 eos % (test code = eos %) 0.9 % 0.0-5.4 Basophils/100 leukocytes in 0.5 % 0.1-1.2 Unspecified specimen (test code = 90956-6) Band form neutrophils [#/volume] 7.43 K/uL 1.56-6.13 H in Blood (test code = 06950-7) Lymphocytes [#/volume] in 2.2 K/uL 1.18-3.74 Unspecified specimen by Automated count (test code = 87623-9) mono # (test code = mono #) 0.92 K/uL 0.24-0.86 H eos # (test code = eos #) 0.10 K/uL 0.04-0.36 basophil # (test code = basophil 0.05 K/uL 0.01-0.08 #) NRBC% (test code = NRBC%) 0 /100 WBC 0-0.2 NRBC# (test code = NRBC#) 0 K/uL [facility] W Auto Differential panel - [id number] 08:58:00 Test Item Value Reference Range Interpretation Comments white blood count (test code = 10.8 K/uL 4.0-11.5 white blood count) red blood count (test code = red 3.02 M/uL 3.80-5.20 L blood count) hemoglobin (test code = 6.9 g/dL 10.5-15.7 L hemoglobin) hematocrit (test code = 25.0 % 34.0-50.0 L hematocrit) MCV [Entitic volume] (test code = 82.8 fL 86-100 L 93769-4) mean corpuscular hemoglobin (test 22.8 pg 26.2-33.4 [...] 44.4-80.1 leukocytes in Blood (test code = 10082-0) Immature granulocytes [#/volume] 0.1 K/uL 0.0-0.03 H in Blood (test code = 80415-2) lymphocyte% (test code = 20.0 % 10.0-50.0 lymphocyte%) mono % (test code = mono %) 8.6 % 3.6-12.0 eos % (test code = eos %) 0.9 % 0.0-5.4 Basophils/100 leukocytes in 0.5 % 0.1-1.2 Unspecified specimen (test code = 14632-9) Band form neutrophils [#/volume] 7.43 K/uL 1.56-6.13 H in Blood (test code = 40484-3) Lymphocytes [#/volume] in 2.2 K/uL 1.18-3.74 Unspecified specimen by Automated count (test code = 27499-1) mono # (test code = mono #) 0.92 K/uL 0.24-0.86 H eos # (test code = eos #) 0.10 K/uL 0.04-0.36 basophil # (test code = basophil 0.05 K/uL 0.01-0.08 #) NRBC% (test code = NRBC%) 0 /100 WBC 0-0.2 NRBC# (test code = NRBC#) 0 K/uL [facility] W Auto Differential panel - [id number] 03:25:00 Test Item Value Reference Range Interpretation Comments white blood count (test code = 9.5 K/uL 4.0-11.5 white blood count) red blood count (test code = red 3.56 M/uL 3.80-5.20 L blood count) hemoglobin (test code = 8.3 g/dL 10.5-15.7 L hemoglobin) hematocrit (test code = 29.4 % 34.0-50.0 L hematocrit) MCV [Entitic volume] (test code = 82.6 fL 86-100 L 51232-2) mean corpuscular hemoglobin (test 23.3 pg 26.2-33.4 [...] 44.4-80.1 leukocytes in Blood (test code = 97940-8) Immature granulocytes [#/volume] 0.2 K/uL 0.0-0.03 H in Blood (test code = 48455-6) lymphocyte% (test code = 25.3 % 10.0-50.0 lymphocyte%) mono % (test code = mono %) 6.4 % 3.6-12.0 eos % (test code = eos %) 1.2 % 0.0-5.4 Basophils/100 leukocytes in 1.0 % 0.1-1.2 Unspecified specimen (test code = 60745-9) Band form neutrophils [#/volume] 6.08 K/uL 1.56-6.13 in Blood (test code = 46252-4) Lymphocytes [#/volume] in 2.4 K/uL 1.18-3.74 Unspecified specimen by Automated count (test code = 81877-4) mono # (test code = mono #) 0.61 K/uL 0.24-0.86 eos # (test code = eos #) 0.11 K/uL 0.04-0.36 basophil # (test code = basophil 0.09 K/uL 0.01-0.08 H #) NRBC% (test code = NRBC%) 0 /100 WBC 0-0.2 NRBC# (test code = NRBC#) 0 K/uL [facility] and Indirect antibody screen panel - Blood 2020-10-15 03:25:00 Test Item Value Reference Range Interpretation Comments Rh [Type] in Blood (test code = 4+ 54665-2) ABO and Rh group panel - Blood O positive (test code = 27219-8) [facility] [Presence] in Serum by [id number] 03:25:00 Test Item Value Reference Range Interpretation Comments Reagin Ab [Presence] in Serum by nonreactive nonreactive RPR (test code = 86667-5) [facility] Group[facility]atitis B virus surface Ag [Presence] in Serum 2020-10-15 03:25:00 Test Item Value Reference Range Interpretation Comments .hepatitis B surface antigen (test negative negative code = .hepatitis B surface antigen) [facility] W Auto Differential panel - [id number] 03:25:00 Test Item Value Reference Range Interpretation Comments white blood count (test code = 9.5 K/uL 4.0-11.5 white blood count) red blood count (test code = red 3.56 M/uL 3.80-5.20 L blood count) hemoglobin (test code = 8.3 g/dL 10.5-15.7 L hemoglobin) hematocrit (test code = 29.4 % 34.0-50.0 L hematocrit) MCV [Entitic volume] (test code = 82.6 fL 86-100 L 09722-6) mean corpuscular hemoglobin (test 23.3 pg 26.2-33.4 [...] 44.4-80.1 leukocytes in Blood (test code = 50048-2) Immature granulocytes [#/volume] 0.2 K/uL 0.0-0.03 H in Blood (test code = 14798-2) lymphocyte% (test code = 25.3 % 10.0-50.0 lymphocyte%) mono % (test code = mono %) 6.4 % 3.6-12.0 eos % (test code = eos %) 1.2 % 0.0-5.4 Basophils/100 leukocytes in 1.0 % 0.1-1.2 Unspecified specimen (test code = 41089-9) Band form neutrophils [#/volume] 6.08 K/uL 1.56-6.13 in Blood (test code = 27426-6) Lymphocytes [#/volume] in 2.4 K/uL 1.18-3.74 Unspecified specimen by Automated count (test code = 31025-0) mono # (test code = mono #) 0.61 K/uL 0.24-0.86 eos # (test code = eos #) 0.11 K/uL 0.04-0.36 basophil # (test code = basophil 0.09 K/uL 0.01-0.08 H #) NRBC% (test code = NRBC%) 0 /100 WBC 0-0.2 NRBC# (test code = NRBC#) 0 K/uL [facility] antibody [facility] panel - Blood 2020-10-15 03:25:00 Test Item Value Reference Range Interpretation Comments Rh [Type] in Blood (test code = 4+ 37495-8) ABO and Rh group panel - Blood O positive (test code = 14398-3) [facility] [Presence] in Serum by [id number] 03:25:00 Test Item Value Reference Range Interpretation Comments Reagin Ab [Presence] in Serum by nonreactive nonreactive RPR (test code = 71686-2) [facility] GroupHepatitis B virus surface Ag [Presence] in Serum 2020-10-15 03:25:00 Test Item Value Reference Range Interpretation Comments .hepatitis B surface antigen (test negative negative code = .hepatitis B surface antigen) [facility] GroupUrinalysis macro (dipstick) panel - [id number] 14:23:23 Test Item Value Reference Range Interpretation Comments Leukocytes (test code = Leukocytes) Large Nitrite (test code = Nitrite) negative Urobilinogen (test code = 1 Urobilinogen) Protein (test code = Protein) Trace pH (test code = pH) 6.0 Blood (test code = Blood) Negative Specific [place] (test code = 1.030 Specific [place]) Ketone (test code = Ketone) Trace Bilirubin (test code = Bilirubin) Negative Glucose (test code = Glucose) Negative Appearance (test code = Appearance) Clear Color (test code = Color) Yellow [facility] GroupUrinalysis macro (dipstick) panel - [id number] 14:23:23 Test Item Value Reference Range Interpretation Comments Leukocytes (test code = Leukocytes) Large Nitrite (test code = Nitrite) negative Urobilinogen (test code = 1 Urobilinogen) Protein (test code = Protein) Trace pH (test code = pH) 6.0 Blood (test code = Blood) Negative Specific [place] (test code = 1.030 Specific [place]) Ketone (test code = Ketone) Trace Bilirubin (test code = Bilirubin) Negative Glucose (test code = Glucose) Negative Appearance (test code = Appearance) Clear Color (test code = Color) Yellow [facility] GroupUrinalysis macro (dipstick) panel - [id number] 14:23:23 Test Item Value Reference Range Interpretation Comments Leukocytes (test code = Leukocytes) Large Nitrite (test code = Nitrite) negative Urobilinogen (test code = 1 Urobilinogen) Protein (test code = Protein) Trace pH (test code = pH) 6.0 Blood (test code = Blood) Negative Specific [place] (test code = 1.030 Specific [place]) Ketone (test code = Ketone) Trace Bilirubin (test code = Bilirubin) Negative Glucose (test code = Glucose) Negative Appearance (test code = Appearance) Clear Color (test code = Color) Yellow [facility] GroupUrinalysis macro (dipstick) panel - [id number] 14:23:23 Test Item Value Reference Range Interpretation Comments Leukocytes (test code = Leukocytes) Large Nitrite (test code = Nitrite) negative Urobilinogen (test code = 1 Urobilinogen) Protein (test code = Protein) Trace pH (test code = pH) 6.0 Blood (test code = Blood) Negative Specific [place] (test code = 1.030 Specific [place]) Ketone (test code = Ketone) Trace Bilirubin (test code = Bilirubin) Negative Glucose (test code = Glucose) Negative Appearance (test code = Appearance) Clear Color (test code = Color) [facility]Neisseria gonorrhoeae [facility] [Presence] in Unspecified specimen by KWAN with [id number] 00:00:00 Test Item Value Reference Range Interpretation Comments chlamydia trachomatis by real-time positive A PCR (reflex to azithromycin resistance by pyrosequencing) (test code = chlamydia trachomatis by real-time PCR (reflex to azithromycin resistance by pyrosequencing)) neisseria gonorrhoeae by real-time negative PCR (reflex to antibiotic resistance by molecular analysis) (test code = neisseria gonorrhoeae by real-time PCR (reflex to antibiotic resistance by molecular analysis)) [facility] GroupChlamydia trachomatis+Neisseria gonorrhoeae DNA [Presence] in Unspecified specimen by KWAN with [id number] 00:00:00 Test Item Value Reference Range Interpretation Comments chlamydia trachomatis by real-time positive A PCR (reflex to azithromycin resistance by pyrosequencing) (test code = chlamydia trachomatis by real-time PCR (reflex to azithromycin resistance by pyrosequencing)) neisseria gonorrhoeae by real-time negative PCR (reflex to antibiotic resistance by molecular analysis) (test code = neisseria gonorrhoeae by real-time PCR (reflex to antibiotic resistance by molecular analysis)) [facility] GroupChlamydia trachomatis+Neisseria gonorrhoeae DNA [Presence] in Unspecified specimen by KWAN with [id number] 00:00:00 Test Item Value Reference Range Interpretation Comments chlamydia trachomatis by real-time positive A PCR (reflex to azithromycin resistance by pyrosequencing) (test code = chlamydia trachomatis by real-time PCR (reflex to azithromycin resistance by pyrosequencing)) neisseria gonorrhoeae by real-time negative PCR (reflex to antibiotic resistance by molecular analysis) (test code = neisseria gonorrhoeae by real-time PCR (reflex to antibiotic resistance by molecular analysis)) [facility] GroupChlamydia trachomatis+Neisseria gonorrhoeae DNA [Presence] in Unspecified specimen by KWAN with [id number] 00:00:00 Test Item Value Reference Range Interpretation Comments chlamydia trachomatis by real-time positive A PCR (reflex to azithromycin resistance by pyrosequencing) (test code = chlamydia trachomatis by real-time PCR (reflex to azithromycin resistance by pyrosequencing)) neisseria gonorrhoeae by real-time negative PCR (reflex to antibiotic resistance by molecular analysis) (test code = neisseria gonorrhoeae by real-time PCR (reflex to antibiotic resistance by molecular analysis)) [facility] GroupCandida sp DNA [Presence] in Vaginal fluid by KWAN with probe [id number] 00:00:00 Test Item Value Reference Range Interpretation [...] code = jeff glabrata by real-time PCR) [facility] Group[facility] [Presence] in Vaginal fluid by KWAN with probe [id number] 00:00:00 Test Item Value Reference Range Interpretation [...] code = jeff glabrata by real-time PCR) [facility] GroupCandida sp DNA [Presence] in Vaginal fluid by KWAN with probe [id number] 00:00:00 Test Item Value Reference Range Interpretation [...] code = jeff glabrata by real-time PCR) [facility] GroupCandida sp DNA [Presence] in Vaginal fluid by KWAN with probe [id number] 00:00:00 Test Item Value Reference Range Interpretation [...] code = jeff glabrata by real-time PCR) [facility] GroupBacterial vaginosis DNA and score panel - Vaginal fluid by KWAN with probe [id number] 00:00:00 Test Item Value Reference Range Interpretation [...] & av panel) by real time PCR) [facility] GroupStreptococcus agalactiae [Presence] in Unspecified specimen by Organism specific [id number] 00:00:00 Test Item Value Reference Range Interpretation Comments group B streptococcus (gbs) by negative real-time PCR (test code = group B streptococcus (gbs) by real-time PCR) [facility] GroupBacterial vaginosis DNA and score panel - Vaginal fluid by KWAN with probe [id number] 00:00:00 Test Item Value Reference Range Interpretation [...] & av panel) by real time PCR) [facility] GroupStreptococcus agalactiae [Presence] in Unspecified specimen by Organism specific [id number] 00:00:00 Test Item Value Reference Range Interpretation Comments group B streptococcus (gbs) by negative real-time PCR (test code = group B streptococcus (gbs) by real-time PCR) [facility] GroupBacterial vaginosis DNA and score panel - Vaginal fluid by KWAN with probe [id number] 00:00:00 Test Item Value Reference Range Interpretation [...] & av panel) by real time PCR) [facility] GroupStreptococcus agalactiae [Presence] in Unspecified specimen by Organism specific [id number] 00:00:00 Test Item Value Reference Range Interpretation Comments group B streptococcus (gbs) by negative real-time PCR (test code = group B streptococcus (gbs) by real-time PCR) [facility] GroupBacterial vaginosis DNA and score panel - Vaginal fluid by KWAN with probe [id number] 00:00:00 Test Item Value Reference Range Interpretation [...] & av panel) by real time PCR) [facility] GroupStreptococcus agalactiae [Presence] in Unspecified specimen by Organism specific [id number] 00:00:00 Test Item Value Reference Range Interpretation Comments group B streptococcus (gbs) by negative real-time PCR (test code = group B streptococcus (gbs) by real-time PCR) [facility] GroupUrinalysis macro (dipstick) panel - [id number] 13:58:53 Test Item Value Reference Range Interpretation Comments Leukocytes (test code = Small Leukocytes) Nitrite (test code = Nitrite) negative Urobilinogen (test code = 1 Urobilinogen) Protein (test code = Protein) Trace pH (test code = pH) 6.0 Blood (test code = Blood) Negative Specific [place] (test code = 1.030 Specific [place]) Ketone (test code = Ketone) Trace Bilirubin (test code = Bilirubin) Negative Glucose (test code = Glucose) Negative Appearance (test code = Clear Appearance) Color (test code = Color) Dark Yellow [facility] GroupUrinalysis macro (dipstick) panel - [id number] 13:58:53 Test Item Value Reference Range Interpretation Comments Leukocytes (test code = Small Leukocytes) Nitrite (test code = Nitrite) negative Urobilinogen (test code = 1 Urobilinogen) Protein (test code = Protein) Trace pH (test code = pH) 6.0 Blood (test code = Blood) Negative Specific [place] (test code = 1.030 Specific [place]) Ketone (test code = Ketone) Trace Bilirubin (test code = Bilirubin) Negative Glucose (test code = Glucose) Negative Appearance (test code = Clear Appearance) Color (test code = Color) Dark Yellow [facility] GroupUrinalysis macro (dipstick) panel - [id number] 13:58:53 Test Item Value Reference Range Interpretation Comments Leukocytes (test code = Small Leukocytes) Nitrite (test code = Nitrite) negative Urobilinogen (test code = 1 Urobilinogen) Protein (test code = Protein) Trace pH (test code = pH) 6.0 Blood (test code = Blood) Negative Specific [place] (test code = 1.030 Specific [place]) Ketone (test code = Ketone) Trace Bilirubin (test code = Bilirubin) Negative Glucose (test code = Glucose) Negative Appearance (test code = Clear Appearance) Color (test code = Color) Dark Yellow [facility] GroupUrinalysis macro (dipstick) panel - [id number] 13:58:53 Test Item Value Reference Range Interpretation Comments Leukocytes (test code = Small Leukocytes) Nitrite (test code = Nitrite) negative Urobilinogen (test code = 1 Urobilinogen) Protein (test code = Protein) Trace pH (test code = pH) 6.0 Blood (test code = Blood) Negative Specific [place] (test code = 1.030 Specific [place]) Ketone (test code = Ketone) Trace Bilirubin (test code = Bilirubin) Negative Glucose (test code = Glucose) Negative Appearance (test code = Clear Appearance) Color (test code = Color) Dark Yellow [facility] GroupUrinalysis macro (dipstick) panel - [id number] 13:58:53 Test Item Value Reference Range Interpretation Comments Leukocytes (test code = Small Leukocytes) Nitrite (test code = Nitrite) negative Urobilinogen (test code = 1 Urobilinogen) Protein (test code = Protein) Trace pH (test code = pH) 6.0 Blood (test code = Blood) Negative Specific [place] (test code = 1.030 Specific [place]) Ketone (test code = Ketone) Trace Bilirubin (test code = Bilirubin) Negative Glucose (test code = Glucose) Negative Appearance (test code = Clear Appearance) Color (test code = Color) Dark Yellow [facility] GroupCB W Auto Differential panel - [id number] 10:28:00 Test Item Value Reference Range Interpretation Comments white blood count (test code = 9.5 K/uL 4.0-11.5 white blood count) red blood count (test code = red 3.83 M/uL 3.80-5.20 blood count) hemoglobin (test code = 9.7 g/dL 10.5-15.7 L hemoglobin) hematocrit (test code = 32.9 % 34.0-50.0 L hematocrit) MCV [Entitic volume] (test code = 85.9 fL 86-100 L 49917-3) mean corpuscular hemoglobin (test 25.3 pg 26.2-33.4 [...] 44.4-80.1 leukocytes in Blood (test code = 97875-0) Immature granulocytes [#/volume] 0.3 K/uL 0.0-0.03 H in Blood (test code = 53659-1) lymphocyte% (test code = 16.7 % 10.0-50.0 lymphocyte%) mono % (test code = mono %) 5.1 % 3.6-12.0 eos % (test code = eos %) 0.8 % 0.0-5.4 Basophils/100 leukocytes in 0.8 % 0.1-1.2 Unspecified specimen (test code = 53433-8) Band form neutrophils [#/volume] 7.05 K/uL 1.56-6.13 H in Blood (test code = 39459-9) Lymphocytes [#/volume] in 1.6 K/uL 1.18-3.74 Unspecified specimen by Automated count (test code = 35958-7) mono # (test code = mono #) 0.49 K/uL 0.24-0.86 eos # (test code = eos #) 0.08 K/uL 0.04-0.36 basophil # (test code = basophil 0.08 K/uL 0.01-0.08 #) NRBC% (test code = NRBC%) 0 /100 WBC 0-0.2 NRBC# (test code = NRBC#) 0 K/uL [facility] W Auto Differential panel - [id number] 10:28:00 Test Item Value Reference Range Interpretation Comments white blood count (test code = 9.5 K/uL 4.0-11.5 white blood count) red blood count (test code = red 3.83 M/uL 3.80-5.20 blood count) hemoglobin (test code = 9.7 g/dL 10.5-15.7 L hemoglobin) hematocrit (test code = 32.9 % 34.0-50.0 L hematocrit) MCV [Entitic volume] (test code = 85.9 fL 86-100 L 26754-3) mean corpuscular hemoglobin (test 25.3 pg 26.2-33.4 [...] 44.4-80.1 leukocytes in Blood (test code = 21633-0) Immature granulocytes [#/volume] 0.3 K/uL 0.0-0.03 H in Blood (test code = 78595-5) lymphocyte% (test code = 16.7 % 10.0-50.0 lymphocyte%) mono % (test code = mono %) 5.1 % 3.6-12.0 eos % (test code = eos %) 0.8 % 0.0-5.4 Basophils/100 leukocytes in 0.8 % 0.1-1.2 Unspecified specimen (test code = 37520-4) Band form neutrophils [#/volume] 7.05 K/uL 1.56-6.13 H in Blood (test code = 37454-0) Lymphocytes [#/volume] in 1.6 K/uL 1.18-3.74 Unspecified specimen by Automated count (test code = 43303-2) mono # (test code = mono #) 0.49 K/uL 0.24-0.86 eos # (test code = eos #) 0.08 K/uL 0.04-0.36 basophil # (test code = basophil 0.08 K/uL 0.01-0.08 #) NRBC% (test code = NRBC%) 0 /100 WBC 0-0.2 NRBC# (test code = NRBC#) 0 K/uL [facility] W Auto Differential panel - [id number] 10:00:00 Test Item Value Reference Range Interpretation Comments white blood count (test code = 9.4 K/uL 4.0-11.5 white blood count) red blood count (test code = red 3.72 M/uL 3.80-5.20 L blood count) hemoglobin (test code = 10.1 g/dL 10.5-15.7 hemoglobin) hematocrit (test code = 33.2 % 34.0-50.0 L hematocrit) MCV [Entitic volume] (test code = 89.2 fL 86-100 59816-1) mean corpuscular hemoglobin (test 27.2 pg 26.2-33.4 [...] 44.4-80.1 leukocytes in Blood (test code = 20764-4) Immature granulocytes [#/volume] 0.3 K/uL 0.0-0.03 H in Blood (test code = 00740-1) lymphocyte% (test code = 17.4 % 10.0-50.0 lymphocyte%) mono % (test code = mono %) 6.2 % 3.6-12.0 eos % (test code = eos %) 1.1 % 0.0-5.4 Basophils/100 leukocytes in 0.9 % 0.1-1.2 Unspecified specimen (test code = 19364-3) Band form neutrophils [#/volume] 6.64 K/uL 1.56-6.13 H in Blood (test code = 72106-5) Lymphocytes [#/volume] in 1.6 K/uL 1.18-3.74 Unspecified specimen by Automated count (test code = 82360-2) mono # (test code = mono #) 0.58 K/uL 0.24-0.86 eos # (test code = eos #) 0.10 K/uL 0.04-0.36 basophil # (test code = basophil 0.08 K/uL 0.01-0.08 #) NRBC% (test code = NRBC%) 0 /100 WBC 0-0.2 NRBC# (test code = NRBC#) 0 K/uL [facility] 1+2 Ab [Presence] in [id number] 10:00:00HIV P24 AgHIV-1/2 [facility]MaCon[facility] HospitalReagin Ab [Presence] in Serum by RPR 2020-08-09 10:00:00 Test Item Value Reference Range Interpretation Comments Reagin Ab [Presence] in Serum by nonreactive nonreactive RPR (test code = 32783-4) [facility] GroupBlood group antibody screen [Presence] in Serum or Plasma 2020-08-09 10:00:00 Test Item Value Reference Range Interpretation Comments Blood group antibody screen negative [Presence] in Serum or Plasma (test code = 890-4) [facility] GroupUrinalysis macro (dipstick) panel - [id number] 13:44:47 Test Item Value Reference Range Interpretation Comments Leukocytes (test code = Leukocytes) Negative Nitrite (test code = Nitrite) negative Urobilinogen (test code = 2 Urobilinogen) Protein (test code = Protein) 30 pH (test code = pH) 5.5 Blood (test code = Blood) Negative Specific [place] (test code = 1.025 Specific [place]) Ketone (test code = Ketone) Small Bilirubin (test code = Bilirubin) Small Glucose (test code = Glucose) Negative Appearance (test code = Appearance) Clear Color (test code = Color) Yellow [facility] GroupUrinalysis macro (dipstick) panel - [id number] 13:44:47 Test Item Value Reference Range Interpretation Comments Leukocytes (test code = Leukocytes) Negative Nitrite (test code = Nitrite) negative Urobilinogen (test code = 2 Urobilinogen) Protein (test code = Protein) 30 pH (test code = pH) 5.5 Blood (test code = Blood) Negative Specific [place] (test code = 1.025 Specific [place]) Ketone (test code = Ketone) Small Bilirubin (test code = Bilirubin) Small Glucose (test code = Glucose) Negative Appearance (test code = Appearance) Clear Color (test code = Color) Yellow [facility]ouppap, LB + CT/NG/TV + reflex HR [id number] 00:00:00 Test Item Value Reference Range Interpretation [...] HPV type-detect 3.0 high risk if ASCUS) [facility] GroupHIV 1+2 Ab [Presence] in [id number] 10:18:00HIV P24 AgHIV-1/2 Ab81[facility] GroupReagin Ab [Presence] in Serum by RPR 2020-04-15 10:18:00 Test Item Value Reference Range Interpretation Comments Reagin Ab [Presence] in Serum by nonreactive nonreactive RPR (test code = 75879-4) [facility] GroupHepatitis B virus surface Ag [Presence] in Serum 2020-04-15 10:15:00 Test Item Value Reference Range Interpretation Comments .hepatitis B surface antigen (test negative negative code = .hepatitis B surface antigen) [facility] W Auto Differential panel - [id number] 09:42:00 Test Item Value Reference Range Interpretation Comments white blood count (test code = 9.4 K/uL 4.0-11.5 white blood count) red blood count (test code = red 4.73 M/uL 3.80-5.20 blood count) hemoglobin (test code = 13.0 g/dL 10.5-15.7 hemoglobin) hematocrit (test code = 41.1 % 34.0-50.0 hematocrit) MCV [Entitic volume] (test code = 86.9 fL 86-100 78397-0) mean corpuscular hemoglobin (test 27.5 pg 26.2-33.4 [...] 44.4-80.1 leukocytes in Blood (test code = 24405-9) Immature granulocytes [#/volume] 0.1 K/uL 0.0-0.03 H in Blood (test code = 00346-6) lymphocyte% (test code = 14.2 % 10.0-50.0 lymphocyte%) mono % (test code = mono %) 5.4 % 3.6-12.0 eos % (test code = eos %) 0.3 % 0.0-5.4 Basophils/100 leukocytes in 0.4 % 0.1-1.2 Unspecified specimen (test code = 82482-8) Band form neutrophils [#/volume] 7.40 K/uL 1.56-6.13 H in Blood (test code = 91321-3) Lymphocytes [#/volume] in 1.3 K/uL 1.18-3.74 Unspecified specimen by Automated count (test code = 98643-3) mono # (test code = mono #) 0.51 K/uL 0.24-0.86 eos # (test code = eos #) 0.03 K/uL 0.04-0.36 L basophil # (test code = basophil 0.04 K/uL 0.01-0.08 #) NRBC% (test code = NRBC%) 0 /100 WBC 0-0.2 NRBC# (test code = NRBC#) 0 K/uL [facility] Rh group [Type] in [id number] 09:42:00 Test Item Value Reference Range Interpretation Comments Rh [Type] in Blood (test code = 4+ 06173-1) ABO and Rh group panel - Blood O positive (test code = 83714-4) [facility] GroupBlood group antibody screen [Presence] in Serum or Plasma 2020-04-15 09:42:00 Test Item Value Reference Range Interpretation Comments Blood group antibody screen negative [Presence] in Serum or Plasma (test code = 890-4) [facility] GroupBacteria identified in Urine by [id number] 09:42:00Bacteria [facility]Ch[facility] 13+18+21+X+Y aneuploidy in Blood by Molecular genetics method [id number] 00:00:00 Test Item Value Reference Range Interpretation Comments report summary (test code see notes = report summary) report note (test code = see notes report note) trisomy 13 age-based risk score (test code = trisomy 13 age-based risk score) trisomy 13 risk score (test code = trisomy 13 risk score) trisomy 13 age-based risk 1/9,389 (0.01%) text (test code = trisomy 13 [...] 18 risk score) trisomy 18 age-based risk 1/3,015 (0.03%) text (test code = trisomy 18 [...] contacts (test code = see notes contacts) [facility] GroupCOMPREHENSIVE METABOLIC [id number] 16:13:00 Test Item Value Reference Range Interpretation [...] usingpatient ra ce, age, sex, and s rco creatinine. If any of theneeded da ta [...] NORMAL code = LIPINDEX) MG Index/DL HCG [id number] 16:13:00 Test Item Value Reference Range Interpretation Comments HCG SERUM (test 109922 mi-IU/ML 0-3 H HCG RANG ES DURING code = HCG) NORMAL PREGNANC YPOST LMP 3-4 WEEKS 9 - 130 MIU/ML4-5 WEEKS 75 - 2,600 MIU/ML5-6 WEEKS 850 - 20,800 SD U/ML6-7 WEEKS 4,000 - 1 00,200 MIU/ML7-12 WEEK S 11,500 - 289,000 MIU/M L12-16 WEEKS 18,300 - 137,000 MIU/ML16-29 WEE [place] 1,400 - 53,000 MIU/ML 29-41 WEEKS 940 - 60, 000 MIU/ML - US PREG EVAL 1ST [id number] 16:03:00 Patient Name: ELLIE CHU Unit No: [id number] EXAMS: CPT CODE: [id number] US PREG EVAL 1ST [id number] INDICATION: 12 wk abdominal pain confirm iup LOCATION: T18 COMPARISON: None available. FINDINGS: Intrauterine gestational sac noted, with an average gestational sac diameter of 5.63 cm. This corresponds to a gestational age by ultrasound of 12 weeks and 3 days. [place]-rump length is 5.76 cm. This corresponds to a gestational age by ultrasound of 12 weeks 2 days. heart tones are present measuring 165 bpm Right ovary measures 2 x 1.5 x 1.5 cm and is unremarkable in appearance. Left ovary measures 1.9 x 1.3 x 1.4 cm and is unremarkable in appearance. There is normal symmetric ovarian bloodflow at this time bilaterally. Possible 3.7 cm uterine fibroid within the anterior uterus. IMPRESSION: 1. Early intrauterine as described. Continued followup is advised. at 1603 Reported and signed by: Sal Kolb MD CC: Benson Mandujano MD Technologist: Lynn Cohen Trnscrbd D/ (1603) [id number] Probe: Orig Print D/T: S: 04/04/2020 (1606) Probe: MONA Arias NAME: ELLIE CHU [address] [place] [address] Blvd PHYS: Benson Block MD, [place] [address] : 1995 AGE: 24 SEX: F : B.ERS PHONE #: [phone] EXAM DATE: 04/04/2020 STATUS: REG ER FAX #: [phone] RAD NO: Page 1 Signed ReportCOMPREHENSIVE METABOLIC [id number] 15:40:00 Test Item Value Reference Range Interpretation [...] NORMAL code = LIPINDEX) MG Index/DL HCG [id number] 15:40:00 Test Item Value Reference Range Interpretation Comments HCG SERUM (test code = HCG) mi-IU/ML 0-3 COMPREHENSIVE METABOLIC [id number] 15:37:00 Test Item Value Reference Range Interpretation [...] MG 1 NORMAL = LIPINDEX) Index/DL HCG [id number] 15:37:00 Test Item Value Reference Range Interpretation Comments HCG SERUM (test code = HCG) mi-IU/ML 0-3 URINALYSIS [id number] 15:21:00 Test Item Value Reference Range Interpretation [...] MANY /LPF NONE A MUCU) CBC W/AUTO [id number] 15:16:00 Test Item Value Reference Range Interpretation [...] = 0.00 K/mm3 0.0-0.05 N NRBC#) test, [id number] 15:31:48 Test Item Value Reference Range Interpretation Comments Test (test code = negative Test) [facility]ouppregnancy test, [id number] 15:29:45 Test Item Value Reference Range Interpretation Comments Test (test code = negative Test) [facility]ouppregnancy test, [id number] 10:22:00 Test Item Value Reference Range Interpretation Comments Test (test code = negative Test) [facility] Grouppregnancy test, [id number] 15:28:21 Test Item Value Reference Range Interpretation Comments Test (test code = negative Test) [facility]
[2022-11-21 17:52] LABS: Absolute Lymphocytes (CBC) 2.1 K/uL (0.7-4.9); Hematocrit 35.2 % (36.0-45.0); Lymphocytes % 31.1 % (15.3-44.8); MCV 84.3 fL (80-100); RBC Red Blood Cell Count 4.18 M/uL (3.86-4.86)
[2022-11-21 17:53] LABS: Specific Gravity > 1.030 (1.005-1.030)
[2022-11-21 17:54] LABS: Specific Gravity > 1.030 (1.005-1.030); Urine Bacteria None Seen /HPF (<20); Urine Bilirubin NEGATIVE (Negative); Urine Blood 3+ (OVER) (Negative); Urine Clarity Clear (Clear); Urine Color Light-Yellow (Yellow); Urine Glucose NEGATIVE (Negative); Urine Mucus 2+ /HPF (None Seen); Urine Protein TRACE (Negative); Urine RBC 21-50 /HPF (None Seen); Urine Urobilinogen 1+ (Normal); Urine pH 5.5 (5.0-7.0)
[2022-11-21 18:22] LABS: Potassium 3.4 mEq/L (3.5-5.1)
--- NOTE | 2022-11-21 18:51 | RAD REPORT ---
EXAM DESCRIPTION: US - Transvaginal OB - 11/21/2022 6:41 pm CLINICAL HISTORY: vaginal bleeding, pelvic pain COMPARISON: No comparisons FINDINGS: Gestational sac identified with mean sac diameter of 8 millimeters. A yolk sac is identifi ed measuring 4 millimeters. No pole identified. Neither ovary visualized due to overlying bowel gas. IMPRESSION: Single IUP measuring 5 week 4 day. No pole or heart tones identified which is like ly due to early dates. Neither ovary visualized.
--- NOTE | 2022-11-21 18:56 | EDPHYS ---
Physician Documentation [facility] Name: Cristi Ga Age: 27 yrs Sex: Female : 1995 Arrival Date: 11/21/2022 Time: 17:11 Bed 15 Private MD: ED Physician Bentley Root HPI: 11/21 17:16 This 27 yrs old Female presents to ER via Ambulatory with complaints of jmm Vaginal Bleeding, + Preg <12wks, Abdominal Cramping. 17:16 The patient presents to the emergency department with vaginal bleeding. The estimated jmm gestational age is 6 weeks. Is a 27-year-old female with complaints of pelvic cramping and vaginal bleeding began approximately 3 days ago. 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 - Social history:: Smoking status: Patient denies any tobacco usage or history of. ROS: 17:16 Constitutional: Negative for fever, chills, and weight loss, Cardiovascular: Negative jmm for chest pain, palpitations, and edema, Respiratory: Negative for shortness of breath, cough, wheezing, and pleuritic chest pain. 17:16 All other systems are negative. Exam: 17:16 Constitutional: This is a well developed, well nourished patient who is awake, alert, jmm and in no acute distress. Head/Face: atraumatic. Eyes: EOMI, no conjunctival erythema appreciated ENT: Moist Mucus Membranes Neck: Trachea midline, Supple Chest/axilla: Normal chest wall appearance and motion. Cardiovascular: Regular rate and rhythm. No edema appreciated Respiratory: Normal respirations, no respiratory distress appreciated Abdomen/GI: Non distended Back: Normal ROM Skin: General appearance color normal MS/ Extremity: Moves all extremities, no obvious deformities appreciated, no edema noted to the lower extremities Neuro: Awake and alert Psych: Behavior is normal, Mood is normal, Patient is cooperative and pleasant Vital Signs: 17:17 BP 141 / 90; Pulse 108; Resp 16; Temp 99.2(O); Pulse Ox 100% on R/A; Weight 88.45 kg; vg1 Height 5 ft. 7 in. ; Pain 5/10; 17:17 Body Mass Index 30.54 (88.45 kg, 170.18 cm) vg1 17:17 Pain Scale: Adult vg1 MDM: 17:16 Patient medically screened. [facility] 23:54 Differential diagnosis: threatened Ab, inevitable Ab. Data reviewed: vital signs, [facility] nurses notes, old medical records. I considered the following discharge prescriptions or medication management in the emergency department Medications were administered in the Emergency Department. See MAR. Counseling: I had a detailed discussion with the patient and/or guardian regarding: the historical points, exam findings, and any diagnostic results supporting the discharge/admit diagnosis, lab results, radiology results, the need for outpatient follow up, to return to the emergency department if symptoms worsen or persist or if there are any questions or concerns that arise at home. 11/21 17:17 Order name: Abo/rh Typing; Complete Time: 18:34 [facility] 11/21 17:17 Order name: Basic Metabolic Panel; Complete Time: 18:35 [facility] 11/21 17:17 Order name: CBC with Diff; Complete Time: 17:59 [facility] 11/21 17:17 Order name: Test, Urine; Complete Time: 17:58 [facility] 11/21 17:17 Order name: Quantitative Hcg; Complete Time: 18:35 [facility] 11/21 17:17 Order name: Urinalysis w/ reflexes; Complete Time: 17:58 [facility] 11/21 18:42 Order name: Transvaginal OB; Complete Time: 18:55 [facility] 11/21 17:17 Order name: IV Saline Lock; Complete Time: 18:11 [facility] 11/21 17:17 Order name: Labs collected and sent; Complete Time: 18:11 [facility] 11/21 17:17 Order name: NPO; Complete Time: 18:11 [facility] Administered Medications: No medications were administered Disposition Summary: 11/21/22 18:55 Discharge Ordered Location: Home [facility] Condition: Stable [facility] Diagnosis - Threatened [facility] - Asymptomatic bacteriuria [facility] Followup: [facility] - With: Private Physician - When: 2 - 3 days - Reason: Recheck today's complaints, Continuance of care, Re-evaluation by your physician Discharge Instructions: - Discharge Summary Sheet jmm - Threatened Miscarriage diamond Forms: - Medication Reconciliation Form jmm - Thank You Letter diamond - Antibiotic Education jmm - Prescription Opioid Use jmm - Work release form ph Prescriptions: - Cephalexin 500 mg Oral Capsule - take 1 capsule by ORAL route every 8 hours for 10 days; 30 capsule; Refills: 0, jmm Product Selection Permitted Signatures: Dispatcher [employer] Steven Hunt PA PA jmm Garcia, Victoria, RN RN vg1 Corrections: (The following items were deleted from the chart) 18:42 17:18 OB [employer]+[id number] ordered. EDHI EDMS
--- NOTE | 2022-11-21 18:56 | ER ---
Nurse's Notes [facility] Name: Cristi Ga Age: 27 yrs Sex: Female : 1995 Arrival Date: 11/21/2022 Time: 17:11 Bed 15 Private MD: Diagnosis: Threatened ;Asymptomatic bacteriuria Presentation: 11/21 17:17 Chief complaint: Patient states: Lower ABD pain with cramping and bleeding x 3 days; vg1 stated first day of spotting was dark red and today noticed bright red blood, denies clots. States LMP "end of September". Coronavirus screen: Vaccine status: Patient reports receiving the 2nd dose of the covid vaccine. Client denies travel out of the [place] in the last 14 days. Ebola Screen: Patient negative for fever greater than or equal to 101.5 degrees Fahrenheit, and additional compatible Ebola Virus Disease symptoms Patient denies exposure to infectious person. Patient denies travel to an Ebola-affected area in the 21 days before illness onset. Initial Sepsis Screen: Does the patient meet any 2 criteria? HR > 90 bpm. Does the patient have a suspected source of infection? No. Patient's initial sepsis screen is negative. Risk Assessment: Do you want to hurt yourself or someone else? Patient reports no desire to harm self or others. Onset of symptoms was November 18, 2022. 17:17 Method Of Arrival: Ambulatory vg1 17:17 Acuity: [place] 3 vg1 Triage Assessment: 17:19 General: Appears in no apparent distress. uncomfortable, Behavior is calm, cooperative. vg1 Pain: Complains of pain in back, right lower quadrant and left lower quadrant Pain currently is 5 out of 10 on a pain scale. Quality of pain is described as crampy, Pain began 2-3 days ago. : Reports vaginal bleeding that is bright red, spotty. 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 - Social history:: Smoking status: Patient denies any tobacco usage or history of. Screenin:48 [facility] ED Fall Risk Assessment (Adult) History of falling in the last 3 months, ph including since admission No falls in past 3 months (0 pts) Confusion or Disorientation No (0 pts) Intoxicated or Sedated No (0 pts) Impaired Gait No (0 pts) Mobility Assist Device Used No (0 pt) Altered Elimination No (0 pt) Score/Fall Risk Level 0 - 2 = Low Risk Oriented to surroundings, Maintained a safe environment, Hourly rounding (assess needs \\T\\ fall precautionary measures) done. Abuse screen: Denies threats or abuse. Denies injuries from another. Nutritional screening: No deficits noted. Tuberculosis screening: No symptoms or risk factors identified. Assessment: 18:36 General: Appears in no apparent distress. Behavior is calm, cooperative, appropriate ph for age. Pain: Complains of pain in abdomen. Neuro: Level of Consciousness is awake, alert, obeys commands, Oriented to person, place, time, situation. Cardiovascular: Capillary refill < 3 seconds in bilateral Patient's skin is warm and dry. Respiratory: Airway is patent Respiratory effort is even, unlabored, Respiratory pattern is regular, symmetrical. Derm: Skin is healthy with good turgor, Skin is pink, warm \\T\\ dry. Musculoskeletal: Circulation, motion, and sensation intact. Range of motion: intact in all extremities. Vital Signs: 17:17 BP 141 / 90; Pulse 108; Resp 16; Temp 99.2(O); Pulse Ox 100% on R/A; Weight 88.45 kg; vg1 Height 5 ft. 7 in. ; Pain 5/10; 17:17 Body Mass Index 30.54 (88.45 kg, 170.18 cm) vg1 17:17 Pain Scale: Adult vg1 ED Course: 17:13 Patient arrived in ED. rg4 17:14 Steven Mccullough PA is PHCP. jm 17:14 Bentley Root MD is Attending Physician. jm 17:19 Triage completed. vg1 17:19 Arm band placed on. vg1 17:47 Beth Gallardo, DENIA is Primary Nurse. ph 17:48 Patient has correct armband on for positive identification. Placed in gown. Bed in low ph position. Call light in reach. 17:48 No provider procedures requiring assistance completed. ph 18:42 Transvaginal OB In Process Unspecified. EDMS 19:30 IV discontinued, intact, bleeding controlled, No redness/swelling at site. Pressure ph dressing applied. Administered Medications: No medications were administered Medication: 17:48 VIS not applicable for this client. ph Outcome: 18:55 Discharge ordered by . jmm 19:30 Discharged to home ambulatory. ph 19:30 Condition: good 19:30 Discharge instructions given to patient, Instructed on discharge instructions, follow up and referral plans. medication usage, Demonstrated understanding of instructions, follow-up care, medications. 19:31 Patient left the ED. ph Signatures: Dispatcher [employer] EDMS Steven Mccullough PA PA jmm Hall, Patricia, RN RN Tammie Dunlap4 Cher Rolle RN RN vg1
[2022-11-21 20:29] VITALS: BP 141/90; TEMP 99.2; O2SAT 100
== END 2022-11-21 19:31 | disposition home or self-care (01) ==
LOC: ER 17:11
DX: O20.0 Threatened abortion (principal); O23.41 Unspecified infection of urinary tract in pregnancy, first trimester; Z3A.01 Less than 8 weeks gestation of pregnancy
CPT/HCPCS: 36415; 76817; 80048; 81001; 81025; 84702; 85025; 86900; 86901

== ENCOUNTER 2022-11-27 17:25 | Emergency (ER) | payer OTHER ==
--- OUTSIDE RECORDS SUMMARY | 2022-11-27 17:29 | XMS REPORT | Continuity of Care Document ---
:1995 Author Organization [facility] t Address [address] [facility] [place] [address] Care Team Providers Name Role Phone White_M Attending Clinician Unavailable RUPERT Attending Clinician Unavailable Keyana_Donna Attending Clinician Unavailable Rutledge_L Attending Clinician Unavailable White_M Admitting Clinician Unavailable RUPERT Admitting Clinician Unavailable Keyana_Donna Admitting Clinician Unavailable Rutledge_L Admitting Clinician Unavailable Jadiel Rodriguez Admitting Clinician Unavailable Payers Payer Name Policy Type Policy Number Effective Date Expiration Date Kim aguilar [facility] D [id number] 2017 Choice Medicaid 00:00:00 [facility] D [id number] 2012 2012 Choice Medicaid 00:00:00 00:00:00 [facility] [id number] 2020 CHOICE (MEDICAID 00:00:00 [place] - [place] [id number] [place] [id number] HEALTH PROGRAM - FAMILY PLANNING Problems Condition [...] Known DA Active [facility] 04-04 [facility] 00:[facility]: [facility] No Known DA Active [facility] 04-04 Delta s 00:00: [facility] No Known DA Active [facility] 01-28 Delta s 00:00: [facility] No Known DA Active [facility] 01-28 Delta s 00:00: [facility] Social History Smoking Status Start Date Stop Date Source Never Smoker [facility] Medications Ordered Filled Start [...] intramuscu ar route. ar route. lar route. 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 ar route. lar route. 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 No 1mL Depo-Prove [place] 150 mg/mL [...] Source Name Name Tdap Tdap 2018-02-14 Completed [facility] Tdap Tdap 2018-02-14 Completed [facility] 10[facility]18[facility] Tdap Tdap 2018-02-14 Completed [facility] Tdap Tdap 2018-02-14 Completed [facility] Vital Signs Vital Name Observation Time Observation Value Comments Source BP Diastolic 2022-06-06 00:00:00 92 mm[Hg] [facility] Height 2022-06-06 00:00:00 67 [in_i] [facility] BMI (Body Mass 2022-06-06 00:00:00 31.7 kg/m2 [facility] Group BP Systolic 2022-06-06 00:00:00 144 mm[Hg] [facility] Body Weight 2022-06-06 00:00:00 202.6 [lb_av] [facility] BP Diastolic 2021-12-13 00:00:00 78 mm[Hg] [facility] Height 2021-12-13 00:00:00 67 [in_i] [facility] BMI (Body Mass 2021-12-13 00:00:00 29.6 kg/m2 [facility] Group BP Systolic 2021-12-13 00:00:00 111 mm[Hg] [facility] Body Weight 2021-12-13 00:00:00 189.3 [lb_av] [facility] BP Diastolic 2021-05-31 00:00:00 74 mm[Hg] [facility] Height 2021-05-31 00:00:00 67 [in_i] [facility] BMI (Body Mass 2021-05-31 00:00:00 29.7 kg/m2 [facility] Group BP Systolic 2021-05-31 00:00:00 124 mm[Hg] [facility] Body Weight 2021-05-31 00:00:00 189.6 [lb_av] [facility] Height 2021-02-16 00:00:00 67 [in_i] [facility] BP Diastolic 2020-11-12 00:00:00 80 mm[Hg] [facility] Height 2020-11-12 00:00:00 67 [in_i] [facility] BMI (Body Mass 2020-11-12 00:00:00 25.1 kg/m2 [facility] Group BP Systolic 2020-11-12 00:00:00 128 mm[Hg] [facility] Body Weight 2020-11-12 00:00:00 160.1 [lb_av] [facility] BP Diastolic 2020-10-11 00:00:00 78 mm[Hg] [facility] Height 2020-10-11 00:00:00 67 [in_i] [facility] BMI (Body Mass 2020-10-11 00:00:00 25.2 kg/m2 [facility] Group BP Systolic 2020-10-11 00:00:00 115 mm[Hg] [facility] Body Weight 2020-10-11 00:00:00 160.9 [lb_av] [facility] BP Diastolic 2020-10-05 00:00:00 81 mm[Hg] [facility] Height 2020-10-05 00:00:00 67 [in_i] [facility] BMI (Body Mass 2020-10-05 00:00:00 25 kg/m2 [facility] Group BP Systolic 2020-10-05 00:00:00 121 mm[Hg] [facility] Body Weight 2020-10-05 00:00:00 159.6 [lb_av] [facility] BP Diastolic 2020-09-28 00:00:00 76 mm[Hg] [facility] Height 2020-09-28 00:00:00 67 [in_i] [facility] BMI (Body Mass 2020-09-28 00:00:00 25 kg/m2 [facility] Group BP Systolic 2020-09-28 00:00:00 115 mm[Hg] [facility] Body Weight 2020-09-28 00:00:00 159.6 [lb_av] [facility] BP Diastolic 2020-09-14 00:00:00 75 mm[Hg] [facility] Height 2020-09-14 00:00:00 67 [in_i] [facility] BMI (Body Mass 2020-09-14 00:00:00 24.7 kg/m2 [facility] BP Systolic 2020-09-14 00:00:00 116 mm[Hg] [facility] Body Weight 2020-09-14 00:00:00 157.4 [lb_av] [facility] BP Diastolic 2020-08-30 00:00:00 71 mm[Hg] [facility] Height 2020-08-30 00:00:00 67 [in_i] [facility] BMI (Body Mass 2020-08-30 00:00:00 23.9 kg/m2 [facility] BP Systolic 2020-08-30 00:00:00 105 mm[Hg] [facility] Body Weight 2020-08-30 00:00:00 152.3 [lb_av] [facility] BP Diastolic 2020-08-09 00:00:00 73 mm[Hg] [facility] Height 2020-08-09 00:00:00 67 [in_i] [facility] BMI (Body Mass 2020-08-09 00:00:00 23.4 kg/m2 [facility] BP Systolic 2020-08-09 00:00:00 112 mm[Hg] [facility] Body Weight 2020-08-09 00:00:00 149.3 [lb_av] [facility] BP Diastolic 2020-06-04 00:00:00 66 mm[Hg] [facility] Height 2020-06-04 00:00:00 67 [in_i] [facility] BMI (Body Mass 2020-06-04 00:00:00 22.3 kg/m2 [facility] BP Systolic 2020-06-04 00:00:00 110 mm[Hg] [facility] Body Weight 2020-06-04 00:00:00 142.7 [lb_av] [facility] BP Diastolic 2020-05-06 00:00:00 72 mm[Hg] [facility] Height 2020-05-06 00:00:00 67 [in_i] [facility] BMI (Body Mass 2020-05-06 00:00:00 22.1 kg/m2 [facility] BP Systolic 2020-05-06 00:00:00 102 mm[Hg] [facility] Body Weight 2020-05-06 00:00:00 140.9 [lb_av] [facility] BP Diastolic 2020-04-15 00:00:00 74 mm[Hg] [facility] Height 2020-04-15 00:00:00 67 [in_i] [facility] BMI (Body Mass 2020-04-15 00:00:00 22.3 kg/m2 [facility] BP Systolic 2020-04-15 00:00:00 114 mm[Hg] [facility] Body Weight 2020-04-15 00:00:00 142.2 [lb_av] [facility] BP Diastolic 2019-06-12 00:00:00 76 mm[Hg] [facility] Height 2019-06-12 00:00:00 67 [in_i] [facility] BMI (Body Mass 2019-06-12 00:00:00 23.4 kg/m2 [facility] BP Systolic 2019-06-12 00:00:00 133 mm[Hg] [facility] Body Weight 2019-06-12 00:00:00 149.1 [lb_av] [facility] BP Diastolic 2019-03-11 00:00:00 72 mm[Hg] [facility] Height 2019-03-11 00:00:00 67 [in_i] [facility] BMI (Body Mass 2019-03-11 00:00:00 22.3 kg/m2 [facility] BP Systolic 2019-03-11 00:00:00 119 mm[Hg] [facility] Body Weight 2019-03-11 00:00:00 142.1 [lb_av] [facility] BP Diastolic 2018-12-09 00:00:00 78 mm[Hg] [facility] Height 2018-12-09 00:00:00 67 [in_i] [facility] BMI (Body Mass 2018-12-09 00:00:00 22.2 kg/m2 [facility] BP Systolic 2018-12-09 00:00:00 124 mm[Hg] [facility] Body Weight 2018-12-09 00:00:00 141.5 [lb_av] [facility] BP Diastolic 2018-09-12 00:00:00 82 mm[Hg] [facility] Height 2018-09-12 00:00:00 67 [in_i] [facility] BMI (Body Mass 2018-09-12 00:00:00 22.3 kg/m2 [facility] BP Systolic 2018-09-12 00:00:00 128 mm[Hg] [facility] Body Weight 2018-09-12 00:00:00 142.5 [facility]lb_av[facility] Procedures Procedure Date / Time Performing Clinician Source Performed non-stress test 2020-10-05 00:00:00 [facility] US, obstetric, limited 2020-09-28 00:00:00 [facility] US, obstetric, limited 2020-08-30 00:00:00 [facility] ULTRASOUND REPEAT 2020-08-09 00:00:00 [facility] ULTRASOUND, 2020-05-06 [facility] UTERUS REAL TIME WITH Group IMAGE DOC, AND MATERNAL EVAL PLUS DETAILED ANATOMIC EXAMINATION, TRANSABDOMINAL APPROACH; SINGLE OR FIRST GESTATION US, obstetric, limited 2020-05-06 00:00:00 [facility] US, obstetric, limited 2020-04-15 00:00:00 [facility] Plan of Care Planned Activity Planned Date Details Comments Source Diagnostic Test 2022-06-06 test, [facility] Pending 00:00:00 urine [code = Group test, urine] Instructions [facility] Encounters Start End Encounter Admission Attending Care Care Encounter Source Date/Time Date/Time Type Type Clinicians Facility Department ID [facility]-10-15 [facility] [id number] [place] 01[facility]17:54 [facility] 2022-11-14 2022-11-14 Outpatient White_M MMG MM[facility] [id number] [place] 00:00:00 00:00:00 0425 [facility] 2022-11-13 2022-11-13 Outpatient White_M MMG MMG [id number] [place] 00:00:00 00:00:00 0424 [facility] 2022-10-14 2022-10-14 Outpatient White_M MMG MMG [id number] [place] 00:00:00 00:00:00 0325 [facility] 2022-09-09 2022-09-09 Outpatient White_M MMG MMG [id number] [place] 00:00:00 00:00:00 0218 [facility] 2022-07-05 2022-07-05 Outpatient White_M MMG MMG [id number] [place] 00:00:00 00:00:00 1214 [facility] 2022-07-04 2022-07-04 Outpatient White_M MMG MMG [id number] [place] 00:00:00 00:00:00 1213 [facility] 2022-06-12 2022-06-12 Outpatient White_M MMG MMG [id number] [place] 00:00:00 00:00:00 1121 [facility] 2022-06-10 2022-06-10 Outpatient White_M MMG MMG [id number] [place] 00:00:00 00:00:00 1119 [facility] 2022-06-06 2022-06-06 Outpatient White_M MMG MMG [id number] [place] 00:00:00 00:00:00 1115 [facility] 2022-06-06 2022-06-06 Mary MMG [place] - [id number] M [place] 00:00:00 00:00:00 Discovery rell G[facility]z [facility]: [address], [place] [address] , Ph. [phone] 2022-02-03 2022-02-03 Outpatient LISTER_JOSE [facility] [id number] [place] 09:50:00 09:50:[address] [facility] 2022-02-01 2022-02-01 Outpatient White_M MMG MMG [id number] [place] 00:00:00 00:00:00 0713 [facility] 2021-12-13 2021-12-13 Mary White_M MMG [place] - [id number] [place] 00:00:00 00:00:00 Discovery Dalia 0524 rell [facility]-: [address] [address] , Ph. [phone] 2021-11-24 2021-11-24 Outpatient White_M MMG [facility] [id number] [place] 03:26:00 03:26:00 0505 da [facility] 2021-08-31 2021-08-31 George White_M MMG [place] - [id number] [place] 00:00:00 00:00:00 Discovery Donna 0209 rell MD: [address] [place] [phone] , Ph. [phone] 2021-05-31 2021-05-31 George White_M MMG [place] - [id number] [place] 00:00:00 00:00:00 Discovery Donna 1109 rell MD: [address] [place] [phone] , Ph. [phone] 2021-02-16 2021-02-16 Katerin White_M [place] - [id number] [place] 00:00:00 00:00:00 Memo Cardoso 0728 rell [facility] MD: [address] [place] [phone] , Ph. 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 [phone] 2020-11-11 2020-11-11 Outpatient G_Pappas MMG MM [id number] [place] 04:36:00 04:36:00 0422 rell [facility] 2020-11-04 2020-11-04 Outpatient G_Pappas MMG MMG [id number] [place] 11:31:00 11:31:00 0415 [facility] 2020-10-20 2020-10-20 Outpatient G_Pappas MMG [facility] [id number] [place] 04:28:00 04:28:00 0331 [facility] 2020-10-11 2020-10-11 George G_[place]app[place] MMG [place] - [id number] [place] 00:00:00 00:00:00 Discovery Donna 0322 rell MD: [address] [place] [phone] , Ph. [phone] 2020-10-05 2020-10-05 George G_Pappas MMG [place] - [id number] [place] 00:00:00 00:00:00 Discovery Donna 0316 da MD: [address] [place] [phone] , Ph. [phone] 2020-09-28 2020-09-28 [place] - [id number] 021 [place] 00:00:00 00:00:00 Discovery Donna 0309 rell MD: [address] [place] [address] , Ph. [phone] 2020-09-14 2020-09-14 [place] - [id number] 021 [place] 00:00:00 00:00:00 Memo Cardoso 0223 rell [facility] Medic[facility] castro MD: [address] [place] [phone] , Ph. [phone] 2020-08-30 2020-08-30 [place] - [id number] 021 [place] 00:00:00 00:00:00 Memo Cardoso 0208 rell [facility] Medic[facility] castro MD: [address] [place] [address] , Ph. [phone] 2020-08-09 2020-08-09 Katerin Andersonledge_[place] - [id number] [id number] [place] 00:00:00 00:00:00 Memo Cardoso 0118 Oleg Serrano Medicmar castro MD: [address] [place] [phone] , Ph. [phone] 2020-06-09 2020-06-09 Outpatient Rutledge_L MMG MMG [id number] [place] 02:40:00 02:40:00 1118 da [facility] 2020-06-04 2020-06-04 [place]aterin Rut[place] - [id number] [id number] [place] 00:00:00 00:00:00 Memo Cardoso 1113 Oleg Serrano MD: [address] [place] [phone] , Ph. [phone] 2020-06-03 2020-06-03 Outpatient Rutledge_L MMG MMG [id number] [place] 11:29:00 11:29:00 1112 rell [facility] 2020-05-06 2020-05-06 George G_[place]appas MMG [place] - [id number] [place] 00:00:00 00:00:00 Discovery Donna 1015 da MD: [address] [place] [phone] , Ph. [phone] 2020-04-15 2020-04-15 Corina Mckenna G_Pappas MMG [place] - [id number] [place] 00:00:00 00:00:00 Discovery Rajesh 0924 da WHNP: [address] [address] , Ph. [phone] 2020-04-12 2020-04-12 Outpatient G_Pappas MMG MMG [id number] [place] 12:04:00 12:04:00 0921 da [facility] 2020-04-04 2020-04-07 Inpatient [facility] NIKOLAS [id number] [facility] 14:26:00 02:24:29 46 [facility] 2020-01-28 2020-01-28 Outpatient PARIS Cortes [place] 03:48:00 03:48:[address] [facility] 2019-06-28 2019-06-28 Outpatient G_Pappas [facility] [id number] [place] 12:23:00 12:23:00 1207 da [facility] 2019-06-12 2019-06-12 [place] [facility] [place] - [id number] [place] 00:00:00 00:00:00 Discovery Donna 1121 rell MD: [address] [place] [phone] , Ph. [phone] 2019-03-11 2019-03-11 [place] - [id number] [place] 00:00:00 00:00:00 Discovery Donna 0820 rell MD: [address] [place] [phone] , Ph. [phone] 2018-12-09 2018-12-09 [place] - [id number] [place] 00:00:00 00:00:00 Discovery Donna 0520 da MD: [address] [place] [phone] , Ph. [phone] 2018-09-12 2018-09-12 [place] [facility] [place] - [id number] [place] 00:00:00 00:00:00 Discovery Donna 0221 rell MD: [address] [place] [phone] , Ph. [phone] Results Test Description Test Time Test Comments Results Result Comments Source test, urine 2022-06-06 15:13:23 Test Item Value Reference Range Interpretation Comme nts Test (test code = Test) negative [facility] [id number] 11:27:54 Test Item Value Reference Range Interpretation Comments Test (test code = negative Test) [facility] [id number] 13:59:49 Test Item Value Reference Range Interpretation Comments Test (test code = negative Test) [facility] [id number] 09:08:31 Test Item Value Reference Range Interpretation Comments Test (test code = negative Test) [facility] W Auto Differential panel - [id number] 08:58:00 Test Item Value Reference Range Interpretation Comments white blood count (test code = 10.8 K/uL 4.0-11.5 white blood count) red blood count (test code = red 3.02 M/uL 3.80-5.20 L blood count) hemoglobin (test code = 6.9 g/dL 10.5-15.7 L hemoglobin) hematocrit (test code = 25.0 % 34.0-50.0 L hematocrit) MCV [Entitic volume] (test code = 82.8 fL 86-100 L 10232-3) mean corpuscular hemoglobin (test 22.8 pg 26.2-33.4 [...] 44.4-80.1 leukocytes in Blood (test code = 36342-1) Immature granulocytes [#/volume] 0.1 K/uL 0.0-0.03 H in Blood (test code = 18322-3) lymphocyte% (test code = 20.0 % 10.0-50.0 lymphocyte%) mono % (test code = mono %) 8.6 % 3.6-12.0 eos % (test code = eos %) 0.9 % 0.0-5.4 Basophils/100 leukocytes in 0.5 % 0.1-1.2 Unspecified specimen (test code = 11888-4) Band form neutrophils [#/volume] 7.43 K/uL 1.56-6.13 H in Blood (test code = 39693-4) Lymphocytes [#/volume] in 2.2 K/uL 1.18-3.74 Unspecified specimen by Automated count (test code = 55267-1) mono # (test code = mono #) 0.92 K/uL 0.24-0.86 H eos # (test code = eos #) 0.10 K/uL 0.04-0.36 basophil # (test code = basophil 0.05 K/uL 0.01-0.08 #) NRBC% (test code = NRBC%) 0 /100 WBC 0-0.2 NRBC# (test code = NRBC#) 0 K/uL [facility] W Auto Differential panel - [id number] 08:58:00 Test Item Value Reference Range Interpretation Comments white blood count (test code = 10.8 K/uL 4.0-11.5 white blood count) red blood count (test code = red 3.02 M/uL 3.80-5.20 L blood count) hemoglobin (test code = 6.9 g/dL 10.5-15.7 L hemoglobin) hematocrit (test code = 25.0 % 34.0-50.0 L hematocrit) MCV [Entitic volume] (test code = 82.8 fL 86-100 L 96168-0) mean corpuscular hemoglobin (test 22.8 pg 26.2-33.4 [...] 44.4-80.1 leukocytes in Blood (test code = 87285-7) Immature granulocytes [#/volume] 0.1 K/uL 0.0-0.03 H in Blood (test code = 03125-4) lymphocyte% (test code = 20.0 % 10.0-50.0 lymphocyte%) mono % (test code = mono %) 8.6 % 3.6-12.0 eos % (test code = eos %) 0.9 % 0.0-5.4 Basophils/100 leukocytes in 0.5 % 0.1-1.2 Unspecified specimen (test code = 62090-3) Band form neutrophils [#/volume] 7.43 K/uL 1.56-6.13 H in Blood (test code = 77729-9) Lymphocytes [#/volume] in 2.2 K/uL 1.18-3.74 Unspecified specimen by Automated count (test code = 18101-9) mono # (test code = mono #) 0.92 K/uL 0.24-0.86 H eos # (test code = eos #) 0.10 K/uL 0.04-0.36 basophil # (test code = basophil 0.05 K/uL 0.01-0.08 #) NRBC% (test code = NRBC%) 0 /100 WBC 0-0.2 NRBC# (test code = NRBC#) 0 K/uL [facility] W Auto Differential panel - [id number] 03:25:00 Test Item Value Reference Range Interpretation Comments white blood count (test code = 9.5 K/uL 4.0-11.5 white blood count) red blood count (test code = red 3.56 M/uL 3.80-5.20 L blood count) hemoglobin (test code = 8.3 g/dL 10.5-15.7 L hemoglobin) hematocrit (test code = 29.4 % 34.0-50.0 L hematocrit) MCV [Entitic volume] (test code = 82.6 fL 86-100 L 93277-5) mean corpuscular hemoglobin (test 23.3 pg 26.2-33.4 [...] 44.4-80.1 leukocytes in Blood (test code = 46281-4) Immature granulocytes [#/volume] 0.2 K/uL 0.0-0.03 H in Blood (test code = 15030-6) lymphocyte% (test code = 25.3 % 10.0-50.0 lymphocyte%) mono % (test code = mono %) 6.4 % 3.6-12.0 eos % (test code = eos %) 1.2 % 0.0-5.4 Basophils/100 leukocytes in 1.0 % 0.1-1.2 Unspecified specimen (test code = 51216-1) Band form neutrophils [#/volume] 6.08 K/uL 1.56-6.13 in Blood (test code = 55546-4) Lymphocytes [#/volume] in 2.4 K/uL 1.18-3.74 Unspecified specimen by Automated count (test code = 82255-1) mono # (test code = mono #) 0.61 K/uL 0.24-0.86 eos # (test code = eos #) 0.11 K/uL 0.04-0.36 basophil # (test code = basophil 0.09 K/uL 0.01-0.08 H #) NRBC% (test code = NRBC%) 0 /100 WBC 0-0.2 NRBC# (test code = NRBC#) 0 K/uL [facility]irect [facility] screen panel - Blood 2020-10-15 03:25:00 Test Item Value Reference Range Interpretation Comments Rh [Type] in Blood (test code = 4+ 33815-9) ABO and Rh group panel - Blood O positive (test code = 86249-8) [facility] [Presence] in Serum by [id number] 03:25:00 Test Item Value Reference Range Interpretation Comments Reagin Ab [Presence] in Serum by nonreactive nonreactive RPR (test code = 63449-3) [facility] virus surface Ag [Presence] in Serum 2020-10-15 03:25:00 Test Item Value Reference Range Interpretation Comments .hepatitis B surface antigen (test negative negative code = .hepatitis B surface antigen) [facility] W Auto Differential panel - [id number] 03:25:00 Test Item Value Reference Range Interpretation Comments white blood count (test code = 9.5 K/uL 4.0-11.5 white blood count) red blood count (test code = red 3.56 M/uL 3.80-5.20 L blood count) hemoglobin (test code = 8.3 g/dL 10.5-15.7 L hemoglobin) hematocrit (test code = 29.4 % 34.0-50.0 L hematocrit) MCV [Entitic volume] (test code = 82.6 fL 86-100 L 32758-9) mean corpuscular hemoglobin (test 23.3 pg 26.2-33.4 [...] 44.4-80.1 leukocytes in Blood (test code = 66705-4) Immature granulocytes [#/volume] 0.2 K/uL 0.0-0.03 H in Blood (test code = 30020-2) lymphocyte% (test code = 25.3 % 10.0-50.0 lymphocyte%) mono % (test code = mono %) 6.4 % 3.6-12.0 eos % (test code = eos %) 1.2 % 0.0-5.4 Basophils/100 leukocytes in 1.0 % 0.1-1.2 Unspecified specimen (test code = 94126-3) Band form neutrophils [#/volume] 6.08 K/uL 1.56-6.13 in Blood (test code = 12834-2) Lymphocytes [#/volume] in 2.4 K/uL 1.18-3.74 Unspecified specimen by Automated count (test code = 94335-4) mono # (test code = mono #) 0.61 K/uL 0.24-0.86 eos # (test code = eos #) 0.11 K/uL 0.04-0.36 basophil # (test code = basophil 0.09 K/uL 0.01-0.08 H #) NRBC% (test code = NRBC%) 0 /100 WBC 0-0.2 NRBC# (test code = NRBC#) 0 K/uL [facility] and Indirect antibody screen panel - Blood 2020-10-15 03:25:00 Test Item Value Reference Range Interpretation Comments Rh [Type] in Blood (test code = 4+ 41494-9) ABO and Rh group panel - Blood O positive (test code = 99880-5) [facility] [Presence] in Serum by [id number] 03:25:00 Test Item Value Reference Range Interpretation Comments Reagin Ab [Presence] in Serum by nonreactive nonreactive RPR (test code = 80072-4) [facility] virus surface Ag [Presence] in Serum 2020-10-15 03:25:00 Test Item Value Reference Range Interpretation Comments .hepatitis B surface antigen (test negative negative code = .hepatitis B surface antigen) [facility] HospitalUrinalysis macro (dipstick) panel - [id number] 14:23:23 Test Item Value Reference Range Interpretation Comments Leukocytes (test code = Leukocytes) Large Nitrite (test code = Nitrite) negative Urobilinogen (test code = 1 Urobilinogen) Protein (test code = Protein) Trace pH (test code = pH) 6.0 Blood (test code = Blood) Negative Specific [place] (test code = 1.030 Specific [place]) Ketone (test code = Ketone) Trace Bilirubin (test code = Bilirubin) Negative Glucose (test code = Glucose) Negative Appearance (test code = Appearance) Clear Color (test code = Color) Yellow [facility] HospitalUrinal[facility] macro (dipstick) panel - [id number] 14:23:23 Test Item Value Reference Range Interpretation Comments Leukocytes (test code = Leukocytes) Large Nitrite (test code = Nitrite) negative Urobilinogen (test code = 1 Urobilinogen) Protein (test code = Protein) Trace pH (test code = pH) 6.0 Blood (test code = Blood) Negative Specific Melville (test code = 1.030 Specific Melville) Ketone (test code = Ketone) Trace Bilirubin (test code = Bilirubin) Negative Glucose (test code = Glucose) Negative Appearance (test code = Appearance) Clear Color (test code = Color) Yellow [facility] HospitalUrinalysis macro (dipstick) panel - [id number] 14:23:23 Test Item Value Reference Range Interpretation Comments Leukocytes (test code = Leukocytes) Large Nitrite (test code = Nitrite) negative Urobilinogen (test code = 1 Urobilinogen) Protein (test code = Protein) Trace pH (test code = pH) 6.0 Blood (test code = Blood) Negative Specific Melville (test code = 1.030 Specific Melville) Ketone (test code = Ketone) Trace Bilirubin (test code = Bilirubin) Negative Glucose (test code = Glucose) Negative Appearance (test code = Appearance) Clear Color (test code = Color) Yellow [facility] HospitalUrinalysis macro (dipstick) panel - [id number] 14:23:23 Test Item Value Reference Range Interpretation Comments Leukocytes (test code = Leukocytes) Large Nitrite (test code = Nitrite) negative Urobilinogen (test code = 1 Urobilinogen) Protein (test code = Protein) Trace pH (test code = pH) 6.0 Blood (test code = Blood) Negative Specific Melville (test code = 1.030 Specific Melville) Ketone (test code = Ketone) Trace Bilirubin (test code = Bilirubin) Negative Glucose (test code = Glucose) Negative Appearance (test code = Appearance) Clear Color (test code = Color) [facility]Neisseria gonorrhoeae DNA [Presence] in Unspecified specimen by KWAN with [id number] 00:00:00 Test Item Value Reference Range Interpretation Comments chlamydia trachomatis by real-time positive A PCR (reflex to azithromycin resistance by pyrosequencing) (test code = chlamydia trachomatis by real-time PCR (reflex to azithromycin resistance by pyrosequencing)) neisseria gonorrhoeae by real-time negative PCR (reflex to antibiotic resistance by molecular analysis) (test code = neisseria gonorrhoeae by real-time PCR (reflex to antibiotic resistance by molecular analysis)) [facility] HospitalCh[facility]omat[facility]+Neisseria gonorrhoeae DNA [Presence] in Unspecified specimen by KWAN with [id number] 00:00:00 Test Item Value Reference Range Interpretation Comments chlamydia trachomatis by real-time positive A PCR (reflex to azithromycin resistance by pyrosequencing) (test code = chlamydia trachomatis by real-time PCR (reflex to azithromycin resistance by pyrosequencing)) neisseria gonorrhoeae by real-time negative PCR (reflex to antibiotic resistance by molecular analysis) (test code = neisseria gonorrhoeae by real-time PCR (reflex to antibiotic resistance by molecular analysis)) [facility] HospitalChlamydia tr[facility]omat[facility]+Neisseria gonorrhoeae DNA [Presence] in Unspecified specimen by KWAN with [id number] 00:00:00 Test Item Value Reference Range Interpretation Comments chlamydia trachomatis by real-time positive A PCR (reflex to azithromycin resistance by pyrosequencing) (test code = chlamydia trachomatis by real-time PCR (reflex to azithromycin resistance by pyrosequencing)) neisseria gonorrhoeae by real-time negative PCR (reflex to antibiotic resistance by molecular analysis) (test code = neisseria gonorrhoeae by real-time PCR (reflex to antibiotic resistance by molecular analysis)) [facility] HospitalCh[facility]omat[facility]+Neisseria gonorrhoeae DNA [Presence] in Unspecified specimen by KWAN with [id number] 00:00:00 Test Item Value Reference Range Interpretation Comments chlamydia trachomatis by real-time positive A PCR (reflex to azithromycin resistance by pyrosequencing) (test code = chlamydia trachomatis by real-time PCR (reflex to azithromycin resistance by pyrosequencing)) neisseria gonorrhoeae by real-time negative PCR (reflex to antibiotic resistance by molecular analysis) (test code = neisseria gonorrhoeae by real-time PCR (reflex to antibiotic resistance by molecular analysis)) [facility] HospitalCandida sp DNA [Presence] in Vaginal fluid by KWAN with probe [id number] 00:00:00 Test Item Value Reference Range Interpretation [...] code = jeff glabrata by real-time PCR) [facility] GroupCand[facility] sp DNA [Presence] in Vaginal fluid by KWAN with probe [id number] 00:00:00 Test Item Value Reference Range Interpretation [...] code = jeff glabrata by real-time PCR) [facility] HospitalCandida sp DNA [Presence] in Vaginal fluid by KWAN with probe [id number] 00:00:00 Test Item Value Reference Range Interpretation [...] code = jeff glabrata by real-time PCR) [facility] GroupCandida sp DNA [Presence] in Vaginal fluid by KWAN with probe [id number] 00:00:00 Test Item Value Reference Range Interpretation [...] code = jeff glabrata by real-time PCR) [facility] HospitalBacterial vaginosis DNA and score panel - Vaginal fluid by KWAN with probe [id number] 00:00:00 Test Item Value Reference Range Interpretation [...] & av panel) by real time PCR) [facility] GroupStreptococcus agalactiae [Presence] in Unspecified specimen by Organism specific [id number] 00:00:00 Test Item Value Reference Range Interpretation Comments group B streptococcus (gbs) by negative real-time PCR (test code = group B streptococcus (gbs) by real-time PCR) [facility] GroupBacterial vaginosis DNA and score panel - Vaginal fluid by KWAN with probe [id number] 00:00:00 Test Item Value Reference Range Interpretation [...] & av panel) by real time PCR) [facility] GroupStreptococcus agalactiae [Presence] in Unspecified specimen by Organism specific [id number] 00:00:00 Test Item Value Reference Range Interpretation Comments group B streptococcus (gbs) by negative real-time PCR (test code = group B streptococcus (gbs) by real-time PCR) [facility] GroupBacterial vaginosis DNA and score panel - Vaginal fluid by KWAN with probe [id number] 00:00:00 Test Item Value Reference Range Interpretation [...] & av panel) by real time PCR) [facility] GroupStreptococcus agalactiae [Presence] in Unspecified specimen by Organism specific [id number] 00:00:00 Test Item Value Reference Range Interpretation Comments group B streptococcus (gbs) by negative real-time PCR (test code = group B streptococcus (gbs) by real-time PCR) [facility] GroupBacterial vaginosis DNA and score panel - Vaginal fluid by KWAN with probe [id number] 00:00:00 Test Item Value Reference Range Interpretation [...] & av panel) by real time PCR) [facility] GroupStreptococcus agalactiae [Presence] in Unspecified specimen by Organism specific [id number] 00:00:00 Test Item Value Reference Range Interpretation Comments group B streptococcus (gbs) by negative real-time PCR (test code = group B streptococcus (gbs) by real-time PCR) [facility] HospitalUrinalysis macro (dipstick) panel - [id number] 13:58:53 Test Item Value Reference Range Interpretation Comments Leukocytes (test code = Small Leukocytes) Nitrite (test code = Nitrite) negative Urobilinogen (test code = 1 Urobilinogen) Protein (test code = Protein) Trace pH (test code = pH) 6.0 Blood (test code = Blood) Negative Specific Mel[place] (test code = 1.030 Specific [place]) Ketone (test code = Ketone) Trace Bilirubin (test code = Bilirubin) Negative Glucose (test code = Glucose) Negative Appearance (test code = Clear Appearance) Color (test code = Color) Dark Yellow [facility] HospitalUrinalysis macro (dipstick) panel - [id number] 13:58:53 Test Item Value Reference Range Interpretation Comments Leukocytes (test code = Small Leukocytes) Nitrite (test code = Nitrite) negative Urobilinogen (test code = 1 Urobilinogen) Protein (test code = Protein) Trace pH (test code = pH) 6.0 Blood (test code = Blood) Negative Specific [place] (test code = 1.030 Specific [place]) Ketone (test code = Ketone) Trace Bilirubin (test code = Bilirubin) Negative Glucose (test code = Glucose) Negative Appearance (test code = Clear Appearance) Color (test code = Color) Dark Yellow [facility] HospitalUrinalysis macro (dipstick) panel - [id number] 13:58:53 Test Item Value Reference Range Interpretation Comments Leukocytes (test code = Small Leukocytes) Nitrite (test code = Nitrite) negative Urobilinogen (test code = 1 Urobilinogen) Protein (test code = Protein) Trace pH (test code = pH) 6.0 Blood (test code = Blood) Negative Specific [place] (test code = 1.030 Specific [place]) Ketone (test code = Ketone) Trace Bilirubin (test code = Bilirubin) Negative Glucose (test code = Glucose) Negative Appearance (test code = Clear Appearance) Color (test code = Color) Dark Yellow [facility] HospitalUrinalysis macro (dipstick) panel - [id number] 13:58:53 Test Item Value Reference Range Interpretation Comments Leukocytes (test code = Small Leukocytes) Nitrite (test code = Nitrite) negative Urobilinogen (test code = 1 Urobilinogen) Protein (test code = Protein) Trace pH (test code = pH) 6.0 Blood (test code = Blood) Negative Specific [place] (test code = 1.030 Specific [place]) Ketone (test code = Ketone) Trace Bilirubin (test code = Bilirubin) Negative Glucose (test code = Glucose) Negative Appearance (test code = Clear Appearance) Color (test code = Color) Dark Yellow [facility] HospitalUrinalysis macro (dipstick) panel - [id number] 13:58:53 Test Item Value Reference Range Interpretation Comments Leukocytes (test code = Small Leukocytes) Nitrite (test code = Nitrite) negative Urobilinogen (test code = 1 Urobilinogen) Protein (test code = Protein) Trace pH (test code = pH) 6.0 Blood (test code = Blood) Negative Specific [place] (test code = 1.030 Specific [place]) Ketone (test code = Ketone) Trace Bilirubin (test code = Bilirubin) Negative Glucose (test code = Glucose) Negative Appearance (test code = Clear Appearance) Color (test code = Color) Dark Yellow [facility] HospitalCB W Auto Differential panel - [id number] 10:28:00 Test Item Value Reference Range Interpretation Comments white blood count (test code = 9.5 K/uL 4.0-11.5 white blood count) red blood count (test code = red 3.83 M/uL 3.80-5.20 blood count) hemoglobin (test code = 9.7 g/dL 10.5-15.7 L hemoglobin) hematocrit (test code = 32.9 % 34.0-50.0 L hematocrit) MCV [Entitic volume] (test code = 85.9 fL 86-100 L 68548-2) mean corpuscular hemoglobin (test 25.3 pg 26.2-33.4 [...] 44.4-80.1 leukocytes in Blood (test code = 95928-5) Immature granulocytes [#/volume] 0.3 K/uL 0.0-0.03 H in Blood (test code = 47339-7) lymphocyte% (test code = 16.7 % 10.0-50.0 lymphocyte%) mono % (test code = mono %) 5.1 % 3.6-12.0 eos % (test code = eos %) 0.8 % 0.0-5.4 Basophils/100 leukocytes in 0.8 % 0.1-1.2 Unspecified specimen (test code = 93754-9) Band form neutrophils [#/volume] 7.05 K/uL 1.56-6.13 H in Blood (test code = 55131-9) Lymphocytes [#/volume] in 1.6 K/uL 1.18-3.74 Unspecified specimen by Automated count (test code = 63055-1) mono # (test code = mono #) 0.49 K/uL 0.24-0.86 eos # (test code = eos #) 0.08 K/uL 0.04-0.36 basophil # (test code = basophil 0.08 K/uL 0.01-0.08 #) NRBC% (test code = NRBC%) 0 /100 WBC 0-0.2 NRBC# (test code = NRBC#) 0 K/uL [facility] W Auto Differential panel - [id number] 10:28:00 Test Item Value Reference Range Interpretation Comments white blood count (test code = 9.5 K/uL 4.0-11.5 white blood count) red blood count (test code = red 3.83 M/uL 3.80-5.20 blood count) hemoglobin (test code = 9.7 g/dL 10.5-15.7 L hemoglobin) hematocrit (test code = 32.9 % 34.0-50.0 L hematocrit) MCV [Entitic volume] (test code = 85.9 fL 86-100 L 59767-0) mean corpuscular hemoglobin (test 25.3 pg 26.2-33.4 [...] 44.4-80.1 leukocytes in Blood (test code = 67572-3) Immature granulocytes [#/volume] 0.3 K/uL 0.0-0.03 H in Blood (test code = 09373-3) lymphocyte% (test code = 16.7 % 10.0-50.0 lymphocyte%) mono % (test code = mono %) 5.1 % 3.6-12.0 eos % (test code = eos %) 0.8 % 0.0-5.4 Basophils/100 leukocytes in 0.8 % 0.1-1.2 Unspecified specimen (test code = 02732-1) Band form neutrophils [#/volume] 7.05 K/uL 1.56-6.13 H in Blood (test code = 67508-9) Lymphocytes [#/volume] in 1.6 K/uL 1.18-3.74 Unspecified specimen by Automated count (test code = 40358-9) mono # (test code = mono #) 0.49 K/uL 0.24-0.86 eos # (test code = eos #) 0.08 K/uL 0.04-0.36 basophil # (test code = basophil 0.08 K/uL 0.01-0.08 #) NRBC% (test code = NRBC%) 0 /100 WBC 0-0.2 NRBC# (test code = NRBC#) 0 K/uL [facility] W Auto Differential panel - [id number] 10:00:00 Test Item Value Reference Range Interpretation Comments white blood count (test code = 9.4 K/uL 4.0-11.5 white blood count) red blood count (test code = red 3.72 M/uL 3.80-5.20 L blood count) hemoglobin (test code = 10.1 g/dL 10.5-15.7 hemoglobin) hematocrit (test code = 33.2 % 34.0-50.0 L hematocrit) MCV [Entitic volume] (test code = 89.2 fL 86-100 15593-0) mean corpuscular hemoglobin (test 27.2 pg 26.2-33.4 [...] 44.4-80.1 leukocytes in Blood (test code = 86259-0) Immature granulocytes [#/volume] 0.3 K/uL 0.0-0.03 H in Blood (test code = 30221-0) lymphocyte% (test code = 17.4 % 10.0-50.0 lymphocyte%) mono % (test code = mono %) 6.2 % 3.6-12.0 eos % (test code = eos %) 1.1 % 0.0-5.4 Basophils/100 leukocytes in 0.9 % 0.1-1.2 Unspecified specimen (test code = 58886-0) Band form neutrophils [#/volume] 6.64 K/uL 1.56-6.13 H in Blood (test code = 02218-0) Lymphocytes [#/volume] in 1.6 K/uL 1.18-3.74 Unspecified specimen by Automated count (test code = 66606-5) mono # (test code = mono #) 0.58 K/uL 0.24-0.86 eos # (test code = eos #) 0.10 K/uL 0.04-0.36 basophil # (test code = basophil 0.08 K/uL 0.01-0.08 #) NRBC% (test code = NRBC%) 0 /100 WBC 0-0.2 NRBC# (test code = NRBC#) 0 K/uL [facility] 1+2 Ab [Presence] in [id number] 10:00:00HIV P24 AgHIV-1/2 [facility]Reagin Ab [Presence] in Serum by RPR 2020-08-09 10:00:00 Test Item Value Reference Range Interpretation Comments Reagin Ab [Presence] in Serum by nonreactive nonreactive RPR (test code = 93278-8) [facility] HospitalBlood [facility] antibody screen [Presence] in Serum or Plasma 2020-08-09 10:00:00 Test Item Value Reference Range Interpretation Comments Blood group antibody screen negative [Presence] in Serum or Plasma (test code = 890-4) [facility] HospitalUrinalysis macro (dipstick) panel - [id number] 13:44:47 Test Item Value Reference Range Interpretation Comments Leukocytes (test code = Leukocytes) Negative Nitrite (test code = Nitrite) negative Urobilinogen (test code = 2 Urobilinogen) Protein (test code = Protein) 30 pH (test code = pH) 5.5 Blood (test code = Blood) Negative Specific Melville (test code = 1.025 Specific [place]) Ketone (test code = Ketone) Small Bilirubin (test code = Bilirubin) Small Glucose (test code = Glucose) Negative Appearance (test code = Appearance) Clear Color (test code = Color) Yellow [facility] HospitalUrinalysis macro (dipstick) panel - [id number] 13:44:47 Test Item Value Reference Range Interpretation Comments Leukocytes (test code = Leukocytes) Negative Nitrite (test code = Nitrite) negative Urobilinogen (test code = 2 Urobilinogen) Protein (test code = Protein) 30 pH (test code = pH) 5.5 Blood (test code = Blood) Negative Specific Mel[place] (test code = 1.025 Specific [place]) Ketone (test code = Ketone) Small Bilirubin (test code = Bilirubin) Small Glucose (test code = Glucose) Negative Appearance (test code = Appearance) Clear Color (test code = Color) Yellow [facility] Hospitalpap, LB + CT/NG/TV + reflex HR [id number] 00:00:00 Test Item Value Reference Range Interpretation [...] HPV type-detect 3.0 high risk if ASCUS) [facility] HospitalHIV 1+2 Ab [Presence] in [id number] 10:18:00HIV P24 AgHIV-1/2 AbJohn [facility]. [facility]ennis [facility] HospitalReagin Ab [Presence] in Serum by RPR 2020-04-15 10:18:00 Test Item Value Reference Range Interpretation Comments Reagin Ab [Presence] in Serum by nonreactive nonreactive RPR (test code = 61789-3) [facility] HospitalHepatitis B virus surface Ag [Presence] in Serum 2020-04-15 10:15:00 Test Item Value Reference Range Interpretation Comments .hepatitis B surface antigen (test negative negative code = .hepatitis B surface antigen) [facility] W Auto Differential panel - [id number] 09:42:00 Test Item Value Reference Range Interpretation Comments white blood count (test code = 9.4 K/uL 4.0-11.5 white blood count) red blood count (test code = red 4.73 M/uL 3.80-5.20 blood count) hemoglobin (test code = 13.0 g/dL 10.5-15.7 hemoglobin) hematocrit (test code = 41.1 % 34.0-50.0 hematocrit) MCV [Entitic volume] (test code = 86.9 fL 86-100 17355-9) mean corpuscular hemoglobin (test 27.5 pg 26.2-33.4 [...] 44.4-80.1 leukocytes in Blood (test code = 14587-2) Immature granulocytes [#/volume] 0.1 K/uL 0.0-0.03 H in Blood (test code = 33416-9) lymphocyte% (test code = 14.2 % 10.0-50.0 lymphocyte%) mono % (test code = mono %) 5.4 % 3.6-12.0 eos % (test code = eos %) 0.3 % 0.0-5.4 Basophils/100 leukocytes in 0.4 % 0.1-1.2 Unspecified specimen (test code = 43897-1) Band form neutrophils [#/volume] 7.40 K/uL 1.56-6.13 H in Blood (test code = 23124-5) Lymphocytes [#/volume] in 1.3 K/uL 1.18-3.74 Unspecified specimen by Automated count (test code = 58325-3) mono # (test code = mono #) 0.51 K/uL 0.24-0.86 eos # (test code = eos #) 0.03 K/uL 0.04-0.36 L basophil # (test code = basophil 0.04 K/uL 0.01-0.08 #) NRBC% (test code = NRBC%) 0 /100 WBC 0-0.2 NRBC# (test code = NRBC#) 0 K/uL [facility] [Type] in [id number] 09:42:00 Test Item Value Reference Range Interpretation Comments Rh [Type] in Blood (test code = 4+ 56235-8) ABO and Rh group panel - Blood O positive (test code = 36548-1) [facility] antibody screen [Presence] in Serum or Plasma 2020-04-15 09:42:00 Test Item Value Reference Range Interpretation Comments Blood group antibody screen negative [Presence] in Serum or Plasma (test code = 890-4) [facility] GroupBacteria identified in Urine by [id number] 09:42:00Bacteria [facility]Chrom[facility] 13+18+21+X+Y aneuploidy in Blood by Molecular genetics method [id number] 00:00:00 Test Item Value Reference Range Interpretation [...] contacts (test code = see notes contacts) [facility] HospitalCOMPREHENSIVE METABOLIC [id number] 16:13:00 Test Item Value Reference Range Interpretation [...] NORMAL code = LIPINDEX) MG Index/DL HCG [id number] 16:13:00 Test Item Value Reference Range Interpretation Comments HCG SERUM (test 823522 mi-IU/ML 0-3 H HCG RANG ES DURING [...] 000 MIU/ML - US PREG EVAL 1ST [id number] 16:03:00 Patient Name: ELLIE CHU Unit No: [id number] EXAMS: CPT CODE: [id number] US PREG EVAL 1ST [id number] INDICATION: 12 wk abdominal pain confirm iup LOCATION: T18 COMPARISON: None available. FINDINGS: Intrauterine gestational sac noted, with an average gestational sac diameter of 5.63 cm. This corresponds to a gestational age by ultrasound of 12 weeks and 3 days. [place]-rump length is 5.76 cm. This corresponds to [...] (1606) Probe: MONA Arias NAME: ELLIE CHU [address] [place] [address] Blvd PHYS: Benson Block [place], [place] [address] : 1995 AGE: 24 SEX: F : B.ERS PHONE #: [phone] EXAM DATE: 04/04/2020 STATUS: REG ER FAX #: [phone] RAD NO: Page 1 Signed ReportCOMPREHENSIVE METABOLIC [id number] 15:40:00 Test Item Value Reference Range Interpretation [...] NORMAL code = LIPINDEX) MG Index/DL HCG [id number] 15:40:00 Test Item Value Reference Range Interpretation Comments HCG SERUM (test code = HCG) mi-IU/ML 0-3 COMPREHENSIVE METABOLIC [id number] 15:37:00 Test Item Value Reference Range Interpretation [...] MG 1 NORMAL = LIPINDEX) Index/DL HCG [id number] 15:37:00 Test Item Value Reference Range Interpretation Comments HCG SERUM (test code = HCG) mi-IU/ML 0-3 URINALYSIS [id number] 15:21:00 Test Item Value Reference Range Interpretation [...] MANY /LPF NONE A MUCU) CBC W/AUTO [id number] 15:16:00 Test Item Value Reference Range Interpretation [...] = 0.00 K/mm3 0.0-0.05 N NRBC#) test, [id number] 15:31:48 Test Item Value Reference Range Interpretation Comments Test (test code = negative Test) [facility] Hospitalpregnancy test, [id number] 15:29:45 Test Item Value Reference Range Interpretation Comments Test (test code = negative Test) [facility] Hospitalpregnancy test, [id number] 10:22:00 Test Item Value Reference Range Interpretation Comments Test (test code = negative Test) [facility] Hospitalpregnancy test, [id number] 15:28:21 Test Item Value Reference Range Interpretation Comments Test (test code = negative Test) [facility]
[2022-11-27 18:14] LABS: Absolute Lymphocytes (CBC) 1.6 K/uL (0.7-4.9); Hematocrit 35.6 % (36.0-45.0); Lymphocytes % 21.6 % (15.3-44.8); MCV 84.6 fL (80-100); MPV 9.3 fL (7.6-11.3)
[2022-11-27 18:41] LABS: Potassium 3.7 mEq/L (3.5-5.1)
--- NOTE | 2022-11-27 19:23 | RAD REPORT ---
EXAM DESCRIPTION: US - Transvaginal OB - 11/27/2022 6:26 pm CLINICAL HISTORY: ABD CRAMPING, COMPARISON: Transvaginal OB dated 11/21/2022 TECHNIQUE: Sonographic grayscale and color flow images of a first-trimester were obtained through a transvaginal approach. FINDINGS: No intrauterine is identified. Gestational sac seen on the prior exam is no longer visualized. Mildly prominent endometrial stripe measuring 8 millimeter in thickness, without significant fluid co ntent. Right ovary measures 2.9 x 1.6 x 2.6 centimeter, without suspicious cysts or masses. The left ovary w as not visualized. No free fluid. IMPRESSION: 1. No evidence of an intrauterine . Gestational sac seen on the prior exam is n o longer visualized. 2. Nonvisualization of the left ovary. No other suspicious findings.
--- NOTE | 2022-11-27 19:27 | ER ---
Nurse's Notes [facility] Name: Cristi Ga Age: 27 yrs Sex: Female : 1995 Arrival Date: 11/27/2022 Time: 17:25 Bed 19 Private MD: Diagnosis: Complete or unspecified spontaneous without complication Presentation: 11/27 17:36 Chief complaint: Patient states: she started bleeding a couple days ago, was evaluated ap3 and told everything was okay. Patient then states yesterday she started bleeding heavier, with cramping and passed a large clot. Patient is worried she may have had a miscarriage. Coronavirus screen: At this time, the client does not indicate any symptoms associated with coronavirus-19. Ebola Screen: No symptoms or risks identified at this time. Initial Sepsis Screen: Does the patient meet any 2 criteria? No. Patient's initial sepsis screen is negative. Does the patient have a suspected source of infection? No. Patient's initial sepsis screen is negative. Risk Assessment: Do you want to hurt yourself or someone else? Patient reports no desire to harm self or others. Onset of symptoms was November 2022. 17:36 Method Of Arrival: Ambulatory ap3 17:36 Acuity: [place] 3 ap3 Triage Assessment: 17:38 General: Appears in no apparent distress. Behavior is calm, cooperative, appropriate ap3 for age. Pain: Complains of pain in suprapubic area, right lower quadrant and left lower quadrant Quality of pain is described as crampy, Pain began gradually, 1 day ago. Is intermittent. Neuro: Level of Consciousness is awake, alert, obeys commands, Oriented to person, place, time, situation. Cardiovascular: Patient's skin is warm and dry. Respiratory: Airway is patent Respiratory effort is even, unlabored, Respiratory pattern is regular, symmetrical. : Reports vaginal bleeding that is with clots. 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 - Social history:: Smoking status: Patient denies any tobacco usage or history of. - Family history:: not pertinent. Screenin:39 [facility] ED Fall Risk Assessment (Adult) History of falling in the last 3 months, ap3 including since admission No falls in past 3 months (0 pts). Abuse screen: Denies threats or abuse. Nutritional screening: No deficits noted. Tuberculosis screening: No symptoms or risk factors identified. Assessment: 19:20 General: Appears in no apparent distress. uncomfortable, Behavior is calm, cooperative, jj7 appropriate for age. GI: Reports cramping, VAGINAL BLEEDING AFTER MISCARRIAGE. 19:20 Reassessment: ASSUMED CARE OF PT. PT SITTING IN BED. NO DISTRESS NOTED. STATES SHE HAD jj7 A MISCARRIAGE AND JUST WANTS TO MAKE SURE SHE PATEL NOT HAVE ANY RETAINED POC. 19:45 Reassessment: PT DISCHARGED PENDING FLUIDS. jj7 Vital Signs: 17:36 BP 130 / 79; Pulse 92; Resp 17; Temp 98.2; Pulse Ox 100% ; Weight 88.45 kg; ap3 19:20 BP 105 / 56; Pulse 87; Resp 17; Pulse Ox 99% ; jj7 20:20 BP 127 / 79; Pulse 78; Resp 17; Pulse Ox 100% ; jj7 21:05 BP 123 / 88; Pulse 81; Resp 20; Pulse Ox 100% ; jj7 ED Course: 17:28 Patient arrived in ED. mr 17:31 Silverio Rosa MD is Attending Physician. karla 17:38 Triage completed. ap3 17:39 Arm band placed on right wrist. ap3 17:53 Inserted saline lock: 22 gauge in right antecubital area, using aseptic technique. ap3 Blood collected. 18:28 US Transvaginal Ob In Process Unspecified. EDMS 19:19 Natalie Garcia, DENIA is Primary Nurse. jj7 19:20 Call light in reach. Side rails up X 1. jj7 19:20 No provider procedures requiring assistance completed. jj7 21:05 IV discontinued, intact, bleeding controlled, No redness/swelling at site. Pressure jj7 dressing applied. Administered Medications: 19:44 Drug: NS 0.9% IV 1000 ml Route: IV; Rate: 1 bolus; Site: right upper arm; j7 20:50 Follow up: IV Status: Completed infusion j 19:44 Drug: Methylergonovine IM 0.2 mg Route: IM; Site: right gluteus; j7 20:24 Follow up: Response: No adverse reaction jj7 21:05 Follow up: Response: No adverse reaction jj7 20:24 Drug: Acetaminophen PO 650 mg Route: PO; j7 21:05 Follow up: Response: No adverse reaction j7 Medication: 19:20 VIS not applicable for this client. jj7 Outcome: 19:27 Discharge ordered by . karla 21:05 Discharged to home ambulatory. j7 21:05 Condition: good 21:05 Discharge instructions given to patient, Instructed on discharge instructions, follow up and referral plans. medication usage, Demonstrated understanding of instructions, follow-up care, medications, Prescriptions given X 2. 21:16 Patient left the ED. jj7 Signatures: Dispatcher [employer] EDMS Silverio Rosa MD MD cha Rivera, Rubi mr Guerda Plata, RN RN ap3 Natalie Garcia RN RN jj7 Corrections: (The following items were deleted from the chart) 20:12 19:20 GI: Reports cramping, VAGINAL BLEEDING AFTER MISCARRIAGE jj7 jj7
--- NOTE | 2022-11-27 19:27 | EDPHYS ---
Physician Documentation [facility] Name: Cristi Ga Age: 27 yrs Sex: Female : 1995 Arrival Date: 11/27/2022 Time: 17:25 Bed 19 Private MD: LASHON Physician Silverio Rosa HPI: 11/27 19:21 This 27 yrs old Female presents to ER via Ambulatory with complaints of karla Miscarriage. 19:21 The patient presents with pelvic pain, vaginal bleeding that is moderate. Onset: The karla symptoms/episode began/occurred yesterday. Modifying factors: The symptoms are alleviated by nothing, the symptoms are aggravated by nothing. Associated signs and symptoms: The patient has no apparent associated signs or symptoms. Severity of symptoms: At their worst the symptoms were mild, moderate, in the emergency department the symptoms are unchanged. The patient is sexually active, The patient has not experienced similar symptoms in the past. HOP GROWER: 17:39 Full Term 3, 2, Living 3, LMP 10/14/2022 ap3 19:21 6, Full Term 3, Premature 0, 2 karla 19:21 6, Full Term 3, Premature 0, 2, Living 3 karla Historical: - Allergies: 17:38 No Known Allergies; ap3 - Home Meds: 17:38 None [Active]; ap3 - PSHx: 17:38 Cholecystectomy; ap3 - Immunization history:: Client reports receiving the 2nd dose of the Covid vaccine. - Social history:: Smoking status: Patient denies any tobacco usage or history of. - Family history:: not pertinent. ROS: 19:21 Constitutional: Negative for fever, chills, and weight loss, Eyes: Negative for injury, karla pain, redness, and discharge, ENT: Negative for injury, pain, and discharge, Neck: Negative for injury, pain, and swelling, Cardiovascular: Negative for chest pain, palpitations, and edema, Respiratory: Negative for shortness of breath, cough, wheezing, and pleuritic chest pain, Abdomen/GI: Negative for abdominal pain, nausea, vomiting, diarrhea, and constipation, Back: Negative for injury and pain, MS/Extremity: Negative for injury and deformity, Skin: Negative for injury, rash, and discoloration, Neuro: Negative for headache, weakness, numbness, tingling, and seizure, Psych: Negative for depression, anxiety, suicide ideation, homicidal ideation, and hallucinations, Allergy/Immunology: Negative for hives, rash, and allergies, Endocrine: Negative for neck swelling, polydipsia, polyuria, polyphagia, and marked weight changes, Hematologic/Lymphatic: Negative for swollen nodes, abnormal bleeding, and unusual bruising. 19:21 : Positive for pelvic pain, vaginal bleeding. Exam: 19:21 Constitutional: This is a well developed, well nourished patient who is awake, alert, karla and in no acute distress. Head/Face: Normocephalic, atraumatic. Eyes: Pupils equal round and reactive to light, extra-ocular motions intact. Lids and lashes normal. Conjunctiva and sclera are non-icteric and not injected. Cornea within normal limits. Periorbital areas with no swelling, redness, or edema. ENT: Nares patent. No nasal discharge, no septal abnormalities noted. Tympanic membranes are normal and external auditory canals are clear. Oropharynx with no redness, swelling, or masses, exudates, or evidence of obstruction, uvula midline. Mucous membranes moist. Neck: Trachea midline, no thyromegaly or masses palpated, and no cervical lymphadenopathy. Supple, full range of motion without nuchal rigidity, or vertebral point tenderness. No Meningismus. Chest/axilla: Normal chest wall appearance and motion. Nontender with no deformity. No lesions are appreciated. Cardiovascular: Regular rate and rhythm with a normal S1 and S2. No gallops, murmurs, or rubs. Normal PMI, no JVD. No pulse deficits. Respiratory: Lungs have equal breath sounds bilaterally, clear to auscultation and percussion. No rales, rhonchi or wheezes noted. No increased work of breathing, no retractions or nasal flaring. Abdomen/GI: Soft, non-tender, with normal bowel sounds. No distension or tympany. No guarding or rebound. No evidence of tenderness throughout. Back: No spinal tenderness. No costovertebral tenderness. Full range of motion. Pelvic Exam: Normal external genitalia. Speculum exam with closed cervical os, no discharge or bleeding noted. Bimanual exam with normal adnexa, no adnexal or cervical motion tenderness. Normal uterus. Skin: Warm, dry with normal turgor. Normal color with no rashes, no lesions, and no evidence of cellulitis. MS/ Extremity: Pulses equal, no cyanosis. Neurovascular intact. Full, normal range of motion. Neuro: Awake and alert, GCS 15, oriented to person, place, time, and situation. Cranial nerves II-XII grossly intact. Motor strength 5/5 in all extremities. Sensory grossly intact. Cerebellar exam normal. Normal gait. Psych: Awake, alert, with orientation to person, place and time. Behavior, mood, and affect are within normal limits. Vital Signs: 17:36 BP 130 / 79; Pulse 92; Resp 17; Temp 98.2; Pulse Ox 100% ; Weight 88.45 kg; ap3 19:20 BP 105 / 56; Pulse 87; Resp 17; Pulse Ox 99% ; jj7 20:20 BP 127 / 79; Pulse 78; Resp 17; Pulse Ox 100% ; jj7 21:05 BP 123 / 88; Pulse 81; Resp 20; Pulse Ox 100% ; jj7 MDM: 17:31 Patient medically screened. [facility] 19:24 Differential diagnosis: Neoplasm placenta previa, postcoital bleeding, urinary tract karla infection. Data reviewed: vital signs, nurses notes, lab test result(s), radiologic studies, ultrasound. Consideration of Admission/Observation Escalation of care including admission/observation considered. I considered the following discharge prescriptions or medication management in the emergency department Medications were administered in the Emergency Department. See MAR. Test considered but Not performed: EKG: NO EKG. Historians other than the Patient: NONE. Care significantly affected by the following chronic conditions: NONE. 11/27 17:32 Order name: Abo/rh Typing; Complete Time: 19:21 [facility] 11/27 17:32 Order name: Basic Metabolic Panel; Complete Time: 19:00 [facility] 11/27 17:32 Order name: CBC with Diff; Complete Time: 19:00 [facility] 11/27 17:32 Order name: Quantitative Hcg; Complete Time: 19:00 [facility] 11/27 17:32 Order name: US Transvaginal Ob; Complete Time: 19:27 [facility] 11/27 17:32 Order name: IV Saline Lock; Complete Time: 17:53 [facility] 11/27 17:32 Order name: Labs collected and sent; Complete Time: 17:53 [facility] 11/27 17:32 Order name: NPO; Complete Time: 17:42 karla Administered Medications: 19:44 Drug: NS 0.9% IV 1000 ml Route: IV; Rate: 1 bolus; Site: right upper arm; jj7 20:50 Follow up: IV Status: Completed infusion 19:44 Drug: Methylergonovine IM 0.2 mg Route: IM; Site: right gluteus; jj7 20:24 Follow up: Response: No adverse reaction jj7 21:05 Follow up: Response: No adverse reaction j7 20:24 Drug: Acetaminophen PO 650 mg Route: PO; jj7 21:05 Follow up: Response: No adverse reaction jj7 Disposition Summary: 11/27/22 19:27 Discharge Ordered Location: Home karla Problem: new karla Symptoms: have improved karla Condition: Stable karla Diagnosis - Complete or unspecified spontaneous without complication karla Followup: karla - With: Private Physician - When: 2 - 3 days - Reason: Recheck today's complaints, Continuance of care, Re-evaluation by your physician Discharge Instructions: - Discharge Summary Sheet krala - Miscarriage karla - Miscarriage, [id number] [facility] Forms: - Medication Reconciliation Form [facility] - Thank You Letter [facility] - Antibiotic Education karla - Prescription Opioid Use [facility] - Work release form jj7 Prescriptions: - Methergine 0.2 mg Oral tablet - take 1 tablet by ORAL route 4 times per day for 2 days; 5 tablet; Refills: 0, [facility] Product Selection Permitted - Zofran 4 mg Oral Tablet - take 1 tablet by ORAL route every 12 hours As needed; 20 tablet; Refills: 0, [facility] Product Selection Permitted Signatures: Dispatcher [employer] Silverio Red MD MD cha Prokisch, Amanda RN RN ap3 Natalie Garcia RN RN jj7
[2022-11-27] MEDS ORDERED: METHYLERGONOVINE 0.2MG/ML AMP IM ONE (19:45)
[2022-11-27] MEDS ORDERED: NA CHLORIDE 0.9% 1,000 ML ONE (19:45)
[2022-11-27] MEDS ORDERED: ACETAMINOPHEN 325 MG TABLET ONE (20:28)
[2022-11-27 21:48] VITALS: TEMP 98.2; O2SAT 100
[2022-11-27 21:51] VITALS: BP 123/88
== END 2022-11-27 21:16 | disposition home or self-care (01) ==
LOC: ER 17:25
DX: O03.9 Complete or unspecified spontaneous abortion without complication (principal)
CPT/HCPCS: 85025; 80048; 36415; 86900; 86901; 84702; 76817; 96360; 96372; 99284; J2210; J7030

== ENCOUNTER 2024-03-16 10:25 | Emergency (ER) | payer OTHER ==
--- OUTSIDE RECORDS SUMMARY | 2024-03-16 10:30 | XMS REPORT | Continuity of Care Document ---
Author Name Unknown Address [address] [place] [address] [facility] thconnect Address 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 Operator Name Role Phone Pcp, Patient Does Not Have A Primary Care Physic naomi KATARZYNA SANCHEZ Attending Clinician UnavailKatarzyna Bennett CNM Attending Clinician KATERINE ROBERTS Attending Clinician Unavailable White_M Attending Clinician Unavailable RUPERT Attending Clinician Unavailable Angela Attending Clinician Unavailable Jennifer_Emigdio Attending Clinician Unavailable White_M Admitting Clinician Unavailable RUPERT Admitting Clinician Unavailable Keyana_Donna Admitting Clinician Unavailable Jennifer_Emigdio Admitting Clinician Unavailable Jadiel Rodriguez Admitting Clinician Unavailable Payers Payer Name Policy Type Policy Number Effective Date Expirati on Date Source [facility] Medicaid D [id number] 2017 00:00:00 [facility] Medicaid D [id number] 2012 00:00:00 2012 00:00:00 FORMERLY [facility] (MEDICAID REPLACEMENT - HMO) [id number] 2020 [place]:00[place]00 [place] [id number] [place] [employer] [facility] [id number] Problems Condition Name Condition Details Condition Category Status Onset Date Resolution Date Last Treatment Date Treating Clinician Comments Source Chlamydia infection affecting Chlamydia infection affecting Disease Active 03-13 00:00: 00 [facility] related nausea, antepartum related nausea, antepartum Disease Active 03-11 00:00: 00 [facility] Cramping affecting , antepartum Cramping affecting , antepartum Disease Active 03-11 00:00: 00 [facility] History of miscarriag e History of miscarriag e Disease Active 03-11 00:00: 00 [facility] Contracept ion using injectable contracept kianna medication Contracept ion Using Injectable Contracept kianna Medication Problem Active 11-28 00:00: 00 [facility] History of 3 miscarriag es History of 3 Miscarriag es Problem Active [facility] Allergies, Adverse Reactions, Alerts Allergy Name Allergy Type Status Severity Reaction(s) Onset Date Inactive Date Treating Clinician Comments Source No Known Allergie s DA Active U 04-04 00:00: 00 [facility] No Known Allergie s DA Active U 04-04 00:00: 00 [facility] No Known Allergie s DA Active U 01-28 00:00: 00 [facility] No Known Allergie s DA Active U 01-28 00:00: 00 [facility] NO KNOWN ALLERGIE S Drug Class Active [facility] Social History Social Habit Start Date Stop Date Quantity Comments Source ASSERTION 2024-02-15 00:00:00 [facility] Tobacco use and exposure 2024-03-11 00:00:00 2024-03-11 00:00:00 Smokeless tobacco non-user [facility] Alcoholic beverage intake 2024-03-11 00:00:00 2024-03-11 00:00:00 Ex-drinker (finding) [facility] History of Social function 2024-03-11 00:00:00 2024-03-11 00:00:00 [facility] Sex assigned at 1995 00:00:00 1995 00:00:00 [facility] Smoking Status Start Date Stop Date Source Never smoked tobacco [facility] Medications Ordered Medication Name Filled Medication Name Start Date Stop Date Current Medication? Ordering Clinician Indication Dosage Frequency Signature (SIG) Comments Components Source proMETHazin e 25 mg tablet 03-13 00:00: 00 Yes [id number] 25mg Take 1 tablet by mouth every 4 (four) hours as needed for Nausea and Vomiting (N/V). [facility] azithromyci n (ZITHROMAX) 500 mg tablet 03-13 00:00: 00 03-14 04:59 :00 Yes [id number] 1000mg Take 2 tablets by mouth once now for [address] [facility] HYDROcodone -acetaminop hen 10-325 mg tablet 03-11 10:07: 10 03-11 00:00 :00 No TAKE ONE (1) TABLET BY MOUTH THREE TIMES A DAY. [facility] Depo-Clinical Laboratory Scientist a 150 mg/mL intramuscul ar syringe Inject 1 mL every 3 months by intramuscul ar route. Depo-Clinical Laboratory Scientist a 150 mg/mL intramuscul ar syringe Inject 1 mL every 3 months by intramuscul ar route. No 1mL Depo-Prove ra 150 mg/mL intramuscu lar syringe Inject 1 mL every 3 months by intramuscu lar route. Sourav [facility] medroxyprog esterone 150 mg/mL intramuscul ar suspension Inject 1 mL every 3 months by intramuscul ar route. medroxyprog esterone 150 mg/mL intramuscul ar suspension Inject 1 mL every 3 months by intramuscul ar route. No 1mL medroxypro gesterone 150 mg/mL intramuscu lar suspension Inject 1 mL every 3 months by intramuscu lar route. [facility] Depo-Clinical Laboratory Scientist a 150 mg/mL intramuscul ar syringe Inject 1 mL every 3 months by intramuscul ar route. Depo-Clinical Laboratory Scientist a 150 mg/mL intramuscul ar syringe Inject 1 mL every 3 months by intramuscul ar route. No 1mL Depo-Prove ra 150 mg/mL intramuscu lar syringe Inject 1 mL every 3 months by intramuscu lar route. [facility] medroxyprog esterone 150 mg/mL intramuscul ar suspension Inject 1 mL every 3 months by intramuscul ar route. medroxyprog esterone 150 mg/mL intramuscul ar suspension Inject 1 mL every 3 months by intramuscul ar route. No 1mL medroxypro gesterone 150 mg/mL intramuscu lar suspension Inject 1 mL every 3 months by intramuscu lar route. [facility] Immunizations Ordered Immunization Name Filled Immunization Name Date Status Comments Source Tdap Tdap 2018-02-14 10:18:49 Completed [facility] Tdap Tdap 2018-02-14 10:18:49 Completed [facility] Tdap Tdap 2018-02-14 00:00:00 Completed [facility] Tdap Tdap 2018-02-14 00:00:00 Completed [facility] TDAP Unknown Completed [facility] TDAP Unknown Completed [facility] SARS-COV-2 COVID-19 PFIZER VACCINE Unknown Completed [facility] SARS-COV-2 COVID-19 PFIZER VACCINE Unknown Completed [facility] TDAP Unknown Completed [facility] TDAP Unknown Completed [facility] SARS-COV-2 COVID-19 PFIZER VACCINE Unknown Completed [facility] SARS-COV-2 COVID-19 PFIZER VACCINE Unknown Completed [facility] Vital Signs Vital Name Observation Time Observation Value Comments Kim aguilar Systolic blood pressure 2024-03-11 14:38:00 128 mm[Hg] [facility] Diastolic blood pressure 2024-03-11 14:38:00 75 mm[Hg] [facility] Heart rate 2024-03-11 14:38:00 90 /min [facility] Body temperature 2024-03-11 14:38:00 35.67 Swetha [facility] Respiratory rate 2024-03-11 14:38:00 18 /min [facility] Body height 2024-03-11 14:38:00 165.1 cm [facility] Body weight 2024-03-11 14:38:00 93.441 kg [facility] BMI 2024-03-11 14:38:00 34.28 kg/m2 [facility] BP Diastolic 2022-06-06 00:00:00 92 mm[Hg] [facility] Height 2022-06-06 00:00:00 67 [in_i] [facility] BMI (Body Mass Index) 2022-06-06 00:00:00 31.7 kg/m2 [facility] BP Systolic 2022-06-06 00:00:00 144 mm[Hg] [facility] Body Weight 2022-06-06 00:00:00 202.6 [lb_av] [facility] BP Diastolic 2021-12-13 00:00:00 78 mm[Hg] [facility] Height 2021-12-13 00:00:00 67 [in_i] [facility] BMI (Body Mass Index) 2021-12-13 00:00:00 29.6 kg/m2 [facility] BP Systolic 2021-12-13 00:00:00 111 mm[Hg] [facility] Body Weight 2021-12-13 00:00:00 189.3 [lb_av] [facility] BP Diastolic 2021-05-31 00:00:00 74 mm[Hg] [facility] Height 2021-05-31 00:00:00 67 [in_i] [facility] BMI (Body Mass Index) 2021-05-31 00:00:00 29.7 kg/m2 [facility] BP Systolic 2021-05-31 00:00:00 124 mm[Hg] [facility] Body Weight 2021-05-31 00:00:00 189.6 [lb_av] [facility] Height 2021-02-16 00:00:00 67 [in_i] [facility] BP Diastolic 2020-11-12 00:00:00 80 mm[Hg] [facility] Height 2020-11-12 00:00:00 67 [in_i] [facility] BMI (Body Mass Index) 2020-11-12 00:00:00 25.1 kg/m2 [facility] BP Systolic 2020-11-12 00:00:00 128 mm[Hg] [facility] Body Weight 2020-11-12 00:00:00 160.1 [lb_av] [facility] BP Diastolic 2020-10-11 00:00:00 78 mm[Hg] [facility] Height 2020-10-11 00:00:00 67 [in_i] [facility] BMI (Body Mass Index) 2020-10-11 00:00:00 25.2 kg/m2 [facility] BP Systolic 2020-10-11 00:00:00 115 mm[Hg] [facility] Body Weight 2020-10-11 00:00:00 160.9 [lb_av] [facility] BP Diastolic 2020-10-05 00:00:00 81 mm[Hg] [facility] Height 2020-10-05 00:00:00 67 [in_i] [facility] BMI (Body Mass Index) 2020-10-05 00:00:00 25 kg/m2 [facility] BP Systolic 2020-10-05 00:00:00 121 mm[Hg] [facility] Body Weight 2020-10-05 00:00:00 159.6 [lb_av] [facility] BP Diastolic 2020-09-28 00:00:00 76 mm[Hg] [facility] Height 2020-09-28 00:00:00 67 [in_i] [facility] BMI (Body Mass Index) 2020-09-28 00:00:00 25 kg/m2 [facility] BP Systolic 2020-09-28 00:00:00 115 mm[Hg] [facility] Body Weight 2020-09-28 00:00:00 159.6 [lb_av] [facility] BP Diastolic 2020-09-14 00:00:00 75 mm[Hg] [facility] Height 2020-09-14 00:00:00 67 [in_i] [facility] BMI (Body Mass Index) 2020-09-14 00:00:00 24.7 kg/m2 [facility] BP Systolic 2020-09-14 00:00:00 116 mm[Hg] [facility] Body Weight 2020-09-14 00:00:00 157.4 [lb_av] [facility] BP Diastolic 2020-08-30 00:00:00 71 mm[Hg] [facility] Height 2020-08-30 00:00:00 67 [in_i] [facility] BMI (Body Mass Index) 2020-08-30 00:00:00 23.9 kg/m2 [facility] BP Systolic 2020-08-30 00:00:00 105 mm[Hg] [facility] Body Weight 2020-08-30 00:00:00 152.3 [lb_av] [facility] BP Diastolic 2020-08-09 00:00:00 73 mm[Hg] [facility] Height 2020-08-09 00:00:00 67 [in_i] [facility] BMI (Body Mass Index) 2020-08-09 00:00:00 23.4 kg/m2 [facility] BP Systolic 2020-08-09 00:00:00 112 mm[Hg] [facility] Body Weight 2020-08-09 00:00:00 149.3 [lb_av] [facility] BP Diastolic 2020-06-04 00:00:00 66 mm[Hg] [facility] Height 2020-06-04 00:00:00 67 [in_i] [facility] BMI (Body Mass Index) 2020-06-04 00:00:00 22.3 kg/m2 [facility] BP Systolic 2020-06-04 00:00:00 110 mm[Hg] [facility] Body Weight 2020-06-04 00:00:00 142.7 [lb_av] [facility] BP Diastolic 2020-05-06 00:00:00 72 mm[Hg] [facility] Height 2020-05-06 00:00:00 67 [in_i] [facility] BMI (Body Mass Index) 2020-05-06 00:00:00 22.1 kg/m2 [facility] BP Systolic 2020-05-06 00:00:00 102 mm[Hg] [facility] Body Weight 2020-05-06 00:00:00 140.9 [lb_av] [facility] BP Diastolic 2020-04-15 00:00:00 74 mm[Hg] [facility] Height 2020-04-15 00:00:00 67 [in_i] [facility] BMI (Body Mass Index) 2020-04-15 00:00:00 22.3 kg/m2 [facility] BP Systolic 2020-04-15 00:00:00 114 mm[Hg] [facility] Body Weight 2020-04-15 00:00:00 142.2 [lb_av] [facility] BP Diastolic 2019-06-12 00:00:00 76 mm[Hg] [facility] Height 2019-06-12 00:00:00 67 [in_i] [facility] BMI (Body Mass Index) 2019-06-12 00:00:00 23.4 kg/m2 [facility] BP Systolic 2019-06-12 00:00:00 133 mm[Hg] [facility] Body Weight 2019-06-12 00:00:00 149.1 [lb_av] [facility] BP Diastolic 2019-03-11 00:00:00 72 mm[Hg] [facility] Height 2019-03-11 00:00:00 67 [in_i] [facility] BMI (Body Mass Index) 2019-03-11 00:00:00 22.3 kg/m2 [facility] BP Systolic 2019-03-11 00:00:00 119 mm[Hg] [facility] Body Weight 2019-03-11 00:00:00 142.1 [lb_av] [facility] BP Diastolic 2018-12-09 00:00:00 78 mm[Hg] [facility] Height 2018-12-09 00:00:00 67 [in_i] [facility] BMI (Body Mass Index) 2018-12-09 00:00:00 22.2 kg/m2 [facility] BP Systolic 2018-12-09 00:00:00 124 mm[Hg] [facility] Body Weight 2018-12-09 00:00:00 141.5 [lb_av] [facility] BP Diastolic 2018-09-12 00:00:00 82 mm[Hg] [facility] Height 2018-09-12 00:00:00 67 [in_i] [facility] BMI (Body Mass Index) 2018-09-12 00:00:00 22.3 kg/m2 [facility] BP Systolic 2018-09-12 00:00:00 128 mm[Hg] [facility] Body Weight 2018-09-12 00:00:00 142.5 [lb_av] [facility] Procedures Procedure Date / Time Performed Performing Clinician Source CBC WITH DIFF 2024-03-11 15:48:00 Katarzyna Sanchez [facility] HEPATITIS B SURFACE ANTIGEN 2024-03-11 15:48:00 Katarzyna Sanchez [facility] HCV ANTIBODY 2024-03-11 15:48:00 Katarzyna Sanchez U [facility] HB ABO GROUPING 2024-03-11 15:48:00 Katarzyna Sanchez [facility] HIV 1/2 AG-AB WITH REFLEX 2024-03-11 15:48:00 Katarzyna Khan [facility] POCT URINALYSIS W/O SPECIFIC GRAVITY 2024-03-11 14:32:00 Katarzyna Sanchez [facility] POCT TEST 2024-03-11 14:31:00 Emerald Sanchez [facility] non-stress test 2020-10-05 00:00:00 [facility] US, obstetric, limited 2020-09-28 00:00:00 [facility] US, obstetric, limited 2020-08-30 00:00:00 [facility] ULTRASOUND REPEAT 2020-08-09 00:00:00 [facility] ULTRASOUND, UTERUS REAL TIME WITH IMAGE DOC, AND MATERNAL EVAL PLUS DETAILED ANATOMIC EXAMINATION, TRANSABDOMINAL APPROACH; SINGLE OR FIRST GESTATION 2020-05-06 00:00:00 [facility] US, obstetric, limited 2020-05-06 00:00:00 [facility] US, obstetric, limited 2020-04-15 00:00:00 [facility] Plan of Care Planned Activity Planned Date Details Comments Source Diagnostic Test Pending 2022-06-06 00:00:00 test, urine [code = test, urine] [facility] Instructions [facility] dical Group Encounters Start Date/Time End Date/Time Encounter Type Admission Type Attending [facility] Care Department Encounter ID Source 2021-10-15 01:17:54 Outpatient [facility] [id number] [facility] 2024-03-13 00:00:00 2024-03-13 13:10:07 Telephone Katarzyna Sanchez [facility] PRE SALES ARCHITECT [facility] MATERNAL & CHILD [facility] ..[id number] [facility] 2024-03-11 09:15:00 2024-03-11 10:49:02 Initial Visit Katarzyna Sanchez [facility] PRE SALES ARCHITECT [facility] MATERNAL & CHILD [facility] [id number] [facility] 2024-03-11 09:15:00 2024-03-11 10:49:02 Outpatient Nadeen SANC[facility]ATARZYNA [facility] [id number] [facility] 2023-07-15 02:07:00 2023-07-15 03:01:00 Emergency ER KATERINE ROBERTS [facility] [id number] [facility] 2022-12-19 00:00:00 2022-12-19 00:00:00 Outpatient White_M MMG [facility] [id number] [facility] 2022-11-14 00:00:00 2022-11-14 00:00:00 Outpatient White_M MMG MMG [id number] [facility] 2022-11-13 00:00:00 2022-11-13 00:00:00 Outpatient White_M MMG MMG [id number] [facility] 2022-10-14 00:00:00 2022-10-14 00:00:00 Outpatient White_M MMG MMG [id number] [facility] 2022-09-09 00:00:00 2022-09-09 00:00:00 Outpatient White_M MMG MMG [id number] [facility] 2022-07-05 00:00:00 2022-07-05 00:00:00 Outpatient White_M MMG MMG [id number] [facility] 2022-07-04 00:00:00 2022-07-04 00:00:00 Outpatient White_M MMG MMG [id number] [facility] 2022-06-12 00:00:00 2022-06-12 00:00:00 Outpatient White_M MMG MMG [id number] [facility] 2022-06-10 00:00:00 2022-06-10 00:00:00 Outpatient White_M MMG MMG [id number] [facility] 2022-06-06 00:00:00 2022-06-06 00:00:00 Outpatient White_M MMG MMG [id number] [facility] 2022-06-06 00:00:00 2022-06-06 00:00:00 Mary CLEVE GómezBC: [address], [place] [address] , Ph. [phone] MMG [facility] [id number] [facility] 2022-02-03 09:50:00 2022-02-03 09:50:00 Outpatient LISTER_MELI [facility] [id number] [facility] 2022-02-01 00:00:00 2022-02-01 00:00:00 Outpatient White_M MMG MMG [id number] [facility] 2021-12-13 00:00:00 2021-12-13 00:00:00 CLEVE ReavesBC: [address] [address] , Ph. [phone] White_M MMG [facility] [id number] [facility] 2021-11-24 03:26:00 2021-11-24 03:26:00 Outpatient White_M MMG MMG [id number] [facility] 2021-08-31 00:00:00 2021-08-31 00:00:00 George Thompson MD: [address] [address] , Ph. [phone] White_M MMG [facility] [id number] [facility] 2021-05-31 00:00:00 2021-05-31 00:00:00 George Thompson MD: [address], [place] [address] , Ph. [phone] White_M MMG [facility] [id number] [facility] 2021-02-16 00:00:00 2021-02-16 00:00:00 Katerin Rodriguez MD: [address] [place] [address] , Ph. [phone] White_M MMG [facility] [id number] [facility] 2020-11-12 00:00:00 2020-11-12 00:00:00 Mary Gómez [facility]: [address] [place] [address] , Ph. [phone] White_M MMG [facility] [id number] [facility] 2020-11-11 04:36:00 2020-11-11 04:36:00 Outpatient G_Pappas MMG MMG [id number] [facility] 2020-11-04 11:31:00 2020-11-04 11:31:00 Outpatient G_Pappas MMG MMG [id number] [facility] 2020-10-20 04:28:00 2020-10-20 04:28:00 Outpatient G_Pappas MMG MMG [id number] [facility] 2020-10-11 00:00:00 2020-10-11 00:00:00 George Thompson MD: [address] [address] , Ph. [phone] G_Pappas MMG [facility] [id number] [facility] 2020-10-05 00:00:00 2020-10-05 00:00:00 George Thompson MD: [address] [address] , Ph. [phone] G_Pappas MMG [facility] [id number] 0316 [facility] 2020-09-28 00:00:00 2020-09-28 00:00:00 George Thompson MD: [address] [place] [address] , Ph. [phone] Rutledge_L [facility] 0309 [facility] 2020-09-14 00:00:00 2020-09-14 00:00:00 Katerin Rodriguez MD: [address] [place] [address] , Ph. [phone] Rutledge_L MM[facility] 0223 [facility] 2020-08-30 00:00:00 2020-08-30 00:00:00 Katerin Rodriguez MD: [address] [address] , Ph. [phone] Rutledge_L MM[facility] 0208 [facility] 2020-08-09 00:00:00 2020-08-09 00:00:00 Katerin Rodriguez MD: [address] [address] , Ph. [phone] Rutledge_L MM[facility] 0118 [facility] 2020-06-09 02:40:00 2020-06-09 02:40:00 Outpatient Rutledge[facility]L MMG MMG [id number] [facility] 2020-06-04 00:00:00 2020-06-04 00:00:00 Katerin Rodriguez MD: [address] [address] , Ph. [phone] Rutledge_L MMG [facility] 1112 [facility] 2020-06-03 11:29:00 2020-06-03 11:29:00 Outpatient Rutledge_L MMG MMG [id number] [facility] 2020-05-06 00:00:00 2020-05-06 00:00:00 George Thompson MD: [address], [place] [address] , Ph. [phone] G_Pappas MM[facility] 1015 [facility] 2020-04-15 00:00:00 2020-04-15 00:00:00 Corina Mena NP: [address], [place] [address] , Ph. [phone] [facility] 2020-04-12 12:04:00 2020-04-12 12:04:00 Outpatient G_Pappas MMG MMG [id number] [facility] 2020-04-04 14:26:00 2020-04-07 02:24:29 Inpatient HCACR NIKOLAS [id number] [facility] 2020-01-28 03:48:00 2020-01-28 03:48:00 Outpatient LISTER_MELI [facility] [id number] [facility] 2019-06-28 12:23:00 2019-06-28 12:23:00 Outpatient G_Pappas MMG MMG [id number] [facility] 2019-06-12 00:00:00 2019-06-12 00:00:00 George Thompson MD: [address], [place] [address] , Ph. [phone] MM[facility] [id number] [facility] 2019-03-11 00:00:00 2019-03-11 00:00:00 George Thompson MD: [address], [place] [address] , Ph. [phone] MM[facility] 0820 [facility] 2018-12-09 00:00:00 2018-12-09 00:00:00 George Thompson MD: [address], [place] [address] , Ph. [phone] MM[facility] 0520 [facility] 2018-09-12 00:00:00 2018-09-12 00:00:00 George Thompson MD: [address], [place] [address] , Ph. [phone] MM[facility] [id number] 0221 [facility] Results Test Description Test Time Test Comments Results Result Co mments Source [id number] 14:32:00* Test Item Value Reference Range Interpretation Comme nts POCT PREG (test code = 1605) Positive On board controls acceptable with C Line (test code = 3574) Yes POCT PREG LOT # (test code = 3575) POCT PREG TEST DATE ( test code = 3576) [facility], [id number] 15:13:23* Test Item Value Reference Range Interpretation Comme [facility] Test (test code = Test) negative [facility], [id number] 11:27:54* Test Item Value Reference Range Interpretation Comme [facility] Test (test code = Test) negative [facility], [id number] 13:59:49* Test Item Value Reference Range Interpretation Comme nts Test (test code = Test) negative [facility], [id number] 09:08:31* Test Item Value Reference Range Interpretation Comme [facility] Test (test code = Test) [facility] Differential panel - [id number] 08:58:00 * Test Item Value Reference Range Interpretation Comme nts white blood count (test code = white blood count) 10.8 K/uL 4.0-11.5 red blood count (test code = red blood count) 3.02 M/uL 3.80-5.20 L hemoglobin (test code = hemoglobin) 6.9 g/dL 10.5-15.7 L hematocrit (test code = hematocrit) 25.0 % 34.0-50.0 L MCV [Entitic volume] (test c ode = 05464-9) 82.8 fL 86-100 L mean corpuscular hemoglobin (test code = mean corpuscular hemoglobin) 22.8 pg 26.2-33.4 L mean corpuscular HGB conc (t est code = mean corpuscular HGB conc) 27.6 g/dL 30-34 L red cell distribution width (test code = red cell distribution width) 15.2 % 12.0-15.5 platelet count (test code = platelet count) 149 K/uL 165-450 L mean platelet volume (test c ode = mean platelet volume) 12.6 fL 9.4-12.6 Segmented neutrophils/100 leukocytes in Blood (test code = 59367-8) 69.0 % 44.4-80.1 Immature granulocytes [#/vol ume] in Blood (test code = 08911-1) 0.1 K/uL 0.0-0.03 H lymphocyte% (test code = lymphocyte%) 20.0 % 10.0-50.0 mono % (test code = mono %) 8.6 % 3.6-12.0 eos % (test code = eos %) 0.9 % 0.0-5.4 Basophils/100 leukocytes in Unspecified specimen (test code = 89998-2) 0.5 % 0.1-1.2 Band form neutrophils [#/vol ume] in Blood (test code = 95980-0) 7.43 K/uL 1.56-6.13 H Lymphocytes [#/volume] in Unspecified specimen by Automated count (test code = 30146-5) 2.2 K/uL 1.18-3.74 mono # (test code = mono #) 0.92 K/uL 0.24-0.86 H eos # (test code = eos #) 0.10 K/uL 0.04-0.36 basophil # (test code = baso yamileth #) 0.05 K/uL 0.01-0.08 NRBC% (test code = NRBC%) 0 /100 WBC 0-0.2 NRBC# (test code = NRBC#) 0 K/uL [facility] W Auto Differential panel - [id number] 08:58:00 * Test Item Value Reference Range Interpretation Comme nts white blood count (test code = white blood count) 10.8 K/uL 4.0-11.5 red blood count (test code = red blood count) 3.02 M/uL 3.80-5.20 L hemoglobin (test code = hemoglobin) 6.9 g/dL 10.5-15.7 L hematocrit (test code = hematocrit) 25.0 % 34.0-50.0 L MCV [Entitic volume] (test c ode = 88690-0) 82.8 fL 86-100 L mean corpuscular hemoglobin (test code = mean corpuscular hemoglobin) 22.8 pg 26.2-33.4 L mean corpuscular HGB conc (t est code = mean corpuscular HGB conc) 27.6 g/dL 30-34 L red cell distribution width (test code = red cell distribution width) 15.2 % 12.0-15.5 platelet count (test code = platelet count) 149 K/uL 165-450 L mean platelet volume (test c ode = mean platelet volume) 12.6 fL 9.4-12.6 Segmented neutrophils/100 leukocytes in Blood (test code = 46533-4) 69.0 % 44.4-80.1 Immature granulocytes [#/vol ume] in Blood (test code = 79510-1) 0.1 K/uL 0.0-0.03 H lymphocyte% (test code = lymphocyte%) 20.0 % 10.0-50.0 mono % (test code = mono %) 8.6 % 3.6-12.0 eos % (test code = eos %) 0.9 % 0.0-5.4 Basophils/100 leukocytes in Unspecified specimen (test code = 53148-0) 0.5 % 0.1-1.2 Band form neutrophils [#/vol ume] in Blood (test code = 85343-1) 7.43 K/uL 1.56-6.13 H Lymphocytes [#/volume] in Unspecified specimen by Automated count (test code = 54917-3) 2.2 K/uL 1.18-3.74 mono # (test code = mono #) 0.92 K/uL 0.24-0.86 H eos # (test code = eos #) 0.10 K/uL 0.04-0.36 basophil # (test code = baso yamileth #) 0.05 K/uL 0.01-0.08 NRBC% (test code = NRBC%) 0 /100 WBC 0-0.2 NRBC# (test code = NRBC#) 0 K/uL [facility] W Auto Differential panel - [id number] 03:25:00 * Test Item Value Reference Range Interpretation Comme nts white blood count (test code = white blood count) 9.5 K/uL 4.0-11.5 red blood count (test code = red blood count) 3.56 M/uL 3.80-5.20 L hemoglobin (test code = hemoglobin) 8.3 g/dL 10.5-15.7 L hematocrit (test code = hematocrit) 29.4 % 34.0-50.0 L MCV [Entitic volume] (test c ode = 85241-7) 82.6 fL 86-100 L mean corpuscular hemoglobin (test code = mean corpuscular hemoglobin) 23.3 pg 26.2-33.4 L mean corpuscular HGB conc (t est code = mean corpuscular HGB conc) 28.2 g/dL 30-34 L red cell distribution width (test code = red cell distribution width) 15.2 % 12.0-15.5 platelet count (test code = platelet count) 198 K/uL 165-450 mean platelet volume (test c ode = mean platelet volume) 12.6 fL 9.4-12.6 Segmented neutrophils/100 leukocytes in Blood (test code = 95105-3) 64.2 % 44.4-80.1 Immature granulocytes [#/vol ume] in Blood (test code = 75603-6) 0.2 K/uL 0.0-0.03 H lymphocyte% (test code = lymphocyte%) 25.3 % 10.0-50.0 mono % (test code = mono %) 6.4 % 3.6-12.0 eos % (test code = eos %) 1.2 % 0.0-5.4 Basophils/100 leukocytes in Unspecified specimen (test code = 08465-4) 1.0 % 0.1-1.2 Band form neutrophils [#/vol ume] in Blood (test code = 52051-4) 6.08 K/uL 1.56-6.13 Lymphocytes [#/volume] in Unspecified specimen by Automated count (test code = 86257-9) 2.4 K/uL 1.18-3.74 mono # (test code = mono #) 0.61 K/uL 0.24-0.86 eos # (test code = eos #) 0.11 K/uL 0.04-0.36 basophil # (test code = baso yamileth #) 0.09 K/uL 0.01-0.08 H NRBC% (test code = NRBC%) 0 /100 WBC 0-0.2 NRBC# (test code = NRBC#) 0 [facility] - Blood 2020-10-15 03:25:00* Test Item Value Reference Range Interpretation Comme nts Rh [Type] in Blood (test cod e = 16089-7) 4+ ABO and Rh group panel - Blo od (test code = 11153-0) O [facility]Pres[facility] in Serum by [id number] 03:25:00* Test Item Value Reference Range Interpretation Comme nts Reagin Ab [Presence] in Seru m by RPR (test code = 34811-8) nonreactive nonreactive [facility] virus surface Ag [Presence] in Serum 2020-10-15 03:25:00* Test Item Value Reference Range Interpretation Comme nts .hepatitis B surface antigen (test code = .hepatitis B surface antigen) negative negative [facility] Differential panel - [id number] 03:25:00 * Test Item Value Reference Range Interpretation Comme nts white blood count (test code = white blood count) 9.5 K/uL 4.0-11.5 red blood count (test code = red blood count) 3.56 M/uL 3.80-5.20 L hemoglobin (test code = hemoglobin) 8.3 g/dL 10.5-15.7 L hematocrit (test code = hematocrit) 29.4 % 34.0-50.0 L MCV [Entitic volume] (test c ode = 57245-7) 82.6 fL 86-100 L mean corpuscular hemoglobin (test code = mean corpuscular hemoglobin) 23.3 pg 26.2-33.4 L mean corpuscular HGB conc (t est code = mean corpuscular HGB conc) 28.2 g/dL 30-34 L red cell distribution width (test code = red cell distribution width) 15.2 % 12.0-15.5 platelet count (test code = platelet count) 198 K/uL 165-450 mean platelet volume (test c ode = mean platelet volume) 12.6 fL 9.4-12.6 Segmented neutrophils/100 leukocytes in Blood (test code = 11837-7) 64.2 % 44.4-80.1 Immature granulocytes [#/vol ume] in Blood (test code = 07425-9) 0.2 K/uL 0.0-0.03 H lymphocyte% (test code = lymphocyte%) 25.3 % 10.0-50.0 mono % (test code = mono %) 6.4 % 3.6-12.0 eos % (test code = eos %) 1.2 % 0.0-5.4 Basophils/100 leukocytes in Unspecified specimen (test code = 75536-4) 1.0 % 0.1-1.2 Band form neutrophils [#/vol ume] in Blood (test code = 14918-8) 6.08 K/uL 1.56-6.13 Lymphocytes [#/volume] in Unspecified specimen by Automated count (test code = 55619-4) 2.4 K/uL 1.18-3.74 mono # (test code = mono #) 0.61 K/uL 0.24-0.86 eos # (test code = eos #) 0.11 K/uL 0.04-0.36 basophil # (test code = baso yamileth #) 0.09 K/uL 0.01-0.08 H NRBC% (test code = NRBC%) 0 /100 WBC 0-0.2 NRBC# (test code = NRBC#) 0 K/uL [facility] - Blood 2020-10-15 03:25:00* Test Item Value Reference Range Interpretation Comme nts Rh [Type] in Blood (test cod e = 27632-5) 4+ ABO and Rh group panel - Blo od (test code = 69782-4) O positive [facility] GroupRe[facility] [Presence] in Serum by [id number] 03:25:00* Test Item Value Reference Range Interpretation Comme nts Reagin Ab [Presence] in Seru m by RPR (test code = 16486-4) nonreactive nonreactive [facility] GroupHepatitis B virus surface Ag [Presence] in Serum 2020-10-15 03:25:00* Test Item Value Reference Range Interpretation Comme nts .hepatitis B surface antigen (test code = .hepatitis B surface antigen) negative negative [facility] GroupUrinalysis macro (dipstick) panel - [id number] 14:23:23* Test Item Value Reference Range Interpretation Comme nts Leukocytes (test code = Leukocytes) Large Nitrite (test code = Nitrite) negative Urobilinogen (test code = Urobilinogen) 1 Protein (test code = Protein) Trace pH (test code = pH) 6.0 Blood (test code = Blood) Negative Specific [place] (test code = Specific [place]) 1.030 Ketone (test code = Ketone) Trace Bilirubin (test code = Bilirubin) Negative Glucose (test code = Glucose) Negative Appearance (test code = Appearance) Clear Color (test code = Color) Yellow [facility] GroupUrinalysis macro (dipstick) panel - [id number] 14:23:23* Test Item Value Reference Range Interpretation Comme nts Leukocytes (test code = Leukocytes) Large Nitrite (test code = Nitrite) negative Urobilinogen (test code = Urobilinogen) 1 Protein (test code = Protein) Trace pH (test code = pH) 6.0 Blood (test code = Blood) Negative Specific [place] (test code = Specific [place]) 1.030 Ketone (test code = Ketone) Trace Bilirubin (test code = Bilirubin) Negative Glucose (test code = Glucose) Negative Appearance (test code = Appearance) Clear Color (test code = Color) Yellow [facility] (dipstick) panel - [id number] 14:23:23* Test Item Value Reference Range Interpretation Comme nts Leukocytes (test code = Leukocytes) Large Nitrite (test code = Nitrite) negative Urobilinogen (test code = Urobilinogen) 1 Protein (test code = Protein) Trace pH (test code = pH) 6.0 Blood (test code = Blood) Negative Specific [place] (test code = Specific [place]) 1.030 Ketone (test code = Ketone) Trace Bilirubin (test code = Bilirubin) Negative Glucose (test code = Glucose) Negative Appearance (test code = Appearance) Clear Color (test code = Color) Yellow [facility] (dipstick) panel - [id number] 14:23:23* Test Item Value Reference Range Interpretation Comme nts Leukocytes (test code = Leukocytes) Large Nitrite (test code = Nitrite) negative Urobilinogen (test code = Urobilinogen) 1 Protein (test code = Protein) Trace pH (test code = pH) 6.0 Blood (test code = Blood) Negative Specific [place] (test code = Specific [place]) 1.030 Ketone (test code = Ketone) Trace Bilirubin (test code = Bilirubin) Negative Glucose (test code = Glucose) Negative Appearance (test code = Appearance) Clear Color (test code = Color) Yellow [facility]Ch[facility]+Neisseria gonorrhoeae DNA [Presence] in Unspecified specimen by KWAN with probe [id number] 00:00:00* Test Item Value Reference Range Interpretation Comme nts chlamydia trachomatis by marcio l-time PCR (reflex to azithromycin resistance by pyrosequencing) (test code = chlamydia trachomatis by real-time PCR (reflex to azithromycin resistance by pyrosequencing)) positive A neisseria gonorrhoeae by marcio l-time PCR (reflex to antibiotic resistance by molecular analysis) (test code = neisseria gonorrhoeae by real-time PCR (reflex to antibiotic resistance by molecular analysis)) negative [facility]Neisseria gonorrhoeae DNA [Presence] in Unspecified specimen by KWAN with probe [id number] 00:00:00* Test Item Value Reference Range Interpretation Comme nts chlamydia trachomatis by marcio l-time PCR (reflex to azithromycin resistance by pyrosequencing) (test code = chlamydia trachomatis by real-time PCR (reflex to azithromycin resistance by pyrosequencing)) positive A neisseria gonorrhoeae by marcio l-time PCR (reflex to antibiotic resistance by molecular analysis) (test code = neisseria gonorrhoeae by real-time PCR (reflex to antibiotic resistance by molecular analysis)) negative [facility] GroupChlamydia trachomatis+Neisseria gonorrhoeae DNA [Presence] in Unspecified specimen by KWAN with probe [id number] 00:00:00* Test Item Value Reference Range Interpretation Comme nts chlamydia trachomatis by marcio l-time PCR (reflex to azithromycin resistance by pyrosequencing) (test code = chlamydia trachomatis by real-time PCR (reflex to azithromycin resistance by pyrosequencing)) positive A neisseria gonorrhoeae by marcio l-time PCR (reflex to antibiotic resistance by molecular analysis) (test code = neisseria gonorrhoeae by real-time PCR (reflex to antibiotic resistance by molecular analysis)) negative [facility] GroupChlamydia trachomatis+Neisseria gonorrhoeae DNA [Presence] in Unspecified specimen by KWAN with probe [id number] 00:00:00* Test Item Value Reference Range Interpretation Comme nts chlamydia trachomatis by marcio l-time PCR (reflex to azithromycin resistance by pyrosequencing) (test code = chlamydia trachomatis by real-time PCR (reflex to azithromycin resistance by pyrosequencing)) positive A neisseria gonorrhoeae by marcio l-time PCR (reflex to antibiotic resistance by molecular analysis) (test code = neisseria gonorrhoeae by real-time PCR (reflex to antibiotic resistance by molecular analysis)) negative [facility] GroupCandida sp DNA [Presence] in Vaginal fluid by KWAN with probe [id number] 00:00:00* Test Item Value Reference Range Interpretation Comme nts jeff albicans by real-sacha e PCR (test code = jeff albicans by real-time PCR) negative jeff tropicalis by real-t bj PCR (test code = jeff tropicalis by real-time PCR) negative jeff parapsilosis by real -time PCR (test code = jeff parapsilosis by real-time PCR) negative jeff glabrata by real-sacha e PCR (test code = jeff glabrata by real-time PCR) negative [facility] GroupCandida sp DNA [Presence] in Vaginal fluid by KWAN with probe [id number] 00:00:00* Test Item Value Reference Range Interpretation Comme nts jeff albicans by real-sacha e PCR (test code = jeff albicans by real-time PCR) negative jeff tropicalis by real-t bj PCR (test code = jeff tropicalis by real-time PCR) negative jeff parapsilosis by real -time PCR (test code = jeff parapsilosis by real-time PCR) negative jeff glabrata by real-sacha e PCR (test code = jeff glabrata by real-time PCR) negative [facility] [Presence] in Vaginal fluid by KWAN with probe [id number] 00:00:00* Test Item Value Reference Range Interpretation Comme nts jeff albicans by real-sacha e PCR (test code = jeff albicans by real-time PCR) negative jeff tropicalis by real-t bj PCR (test code = jeff tropicalis by real-time PCR) negative jeff parapsilosis by real -time PCR (test code = jeff parapsilosis by real-time PCR) negative jeff glabrata by real-sacha e PCR (test code = jeff glabrata by real-time PCR) negative [facility] sp DNA [Presence] in Vaginal fluid by KWAN with probe [id number] 00:00:00* Test Item Value Reference Range Interpretation Comme nts jeff albicans by real-sacha e PCR (test code = jeff albicans by real-time PCR) negative jeff tropicalis by real-t bj PCR (test code = jeff tropicalis by real-time PCR) negative jeff parapsilosis by real -time PCR (test code = jeff parapsilosis by real-time PCR) negative jeff glabrata by real-sacha e PCR (test code = jeff glabrata by real-time PCR) negative [facility] GroupBacterial vaginosis DNA and score panel - Vaginal fluid by KWAN with probe [id number] 00:00:00* Test Item Value Reference Range Interpretation Comme nts gardnerella vaginalis by real-time PCR (test code = gardnerella vaginalis by real-time PCR) negative atopobium vaginae by real-time PCR (test code = atopobium vaginae by real-time PCR) negative bacterial vaginosis associated bacterium 2 (bvab2) by real-time PCR (test code = bacterial vaginosis associated bacterium 2 (bvab2) by real-time PCR) negative megasphaera species (type 1 and type 2) by real-time PCR (test code = megasphaera species (type 1 and type 2) by real-time PCR) negative (type1,type2) lactobacillus (bv & av panel) by real time PCR (test code = lactobacillus (bv & av panel) by real time PCR) see comment [facility] GroupStreptococcus agalactiae [Presence] in Unspecified specimen by Organism specific [id number] 00:00:00* Test Item Value Reference Range Interpretation Comme nts group B streptococcus (gbs) by real-time PCR (test code = group B streptococcus (gbs) by real-time PCR) negative [facility] GroupBacterial vaginosis DNA and score panel - Vaginal fluid by KWAN with probe [id number] 00:00:00* Test Item Value Reference Range Interpretation Comme nts gardnerella vaginalis by real-time PCR (test code = gardnerella vaginalis by real-time PCR) negative atopobium vaginae by real-time PCR (test code = atopobium vaginae by real-time PCR) negative bacterial vaginosis associated bacterium 2 (bvab2) by real-time PCR (test code = bacterial vaginosis associated bacterium 2 (bvab2) by real-time PCR) negative megasphaera species (type 1 and type 2) by real-time PCR (test code = megasphaera species (type 1 and type 2) by real-time PCR) negative (type1,type2) lactobacillus (bv & av panel) by real time PCR (test code = lactobacillus (bv & av panel) by real time PCR) see comment [facility] GroupStreptococcus agalactiae [Presence] in Unspecified specimen by Organism specific [id number] 00:00:00* Test Item Value Reference Range Interpretation Comme nts group B streptococcus (gbs) by real-time PCR (test code = group B streptococcus (gbs) by real-time PCR) negative [facility] GroupBacterial vaginosis DNA and score panel - Vaginal fluid by KWAN with probe [id number] 00:00:00* Test Item Value Reference Range Interpretation Comme nts gardnerella vaginalis by real-time PCR (test code = gardnerella vaginalis by real-time PCR) negative atopobium vaginae by real-time PCR (test code = atopobium vaginae by real-time PCR) negative bacterial vaginosis associated bacterium 2 (bvab2) by real-time PCR (test code = bacterial vaginosis associated bacterium 2 (bvab2) by real-time PCR) negative megasphaera species (type 1 and type 2) by real-time PCR (test code = megasphaera species (type 1 and type 2) by real-time PCR) negative (type1,type2) lactobacillus (bv & av panel) by real time PCR (test code = lactobacillus (bv & av panel) by real time PCR) see comment [facility] GroupStreptococcus agalactiae [Presence] in Unspecified specimen by Organism specific [id number] 00:00:00* Test Item Value Reference Range Interpretation Comme nts group B streptococcus (gbs) by real-time PCR (test code = group B streptococcus (gbs) by real-time PCR) negative [facility] GroupBacterial vaginosis DNA and score panel - Vaginal fluid by KWAN with probe [id number] 00:00:00* Test Item Value Reference Range Interpretation Comme nts gardnerella vaginalis by real-time PCR (test code = gardnerella vaginalis by real-time PCR) negative atopobium vaginae by real-time PCR (test code = atopobium vaginae by real-time PCR) negative bacterial vaginosis associated bacterium 2 (bvab2) by real-time PCR (test code = bacterial vaginosis associated bacterium 2 (bvab2) by real-time PCR) negative megasphaera species (type 1 and type 2) by real-time PCR (test code = megasphaera species (type 1 and type 2) by real-time PCR) negative (type1,type2) lactobacillus (bv & av panel) by real time PCR (test code = lactobacillus (bv & av panel) by real time PCR) see comment [facility] GroupStreptococcus agalactiae [Presence] in Unspecified specimen by Organism specific [id number] 00:00:00* Test Item Value Reference Range Interpretation Comme nts group B streptococcus (gbs) by real-time PCR (test code = group B streptococcus (gbs) by real-time PCR) negative [facility] GroupUrinalysis macro (dipstick) panel - [id number] 13:58:53* Test Item Value Reference Range Interpretation Comme nts Leukocytes (test code = Leukocytes) Small Nitrite (test code = Nitrite) negative Urobilinogen (test code = Urobilinogen) 1 Protein (test code = Protein) Trace pH (test code = pH) 6.0 Blood (test code = Blood) Negative Specific [place] (test code = Specific [place]) 1.030 Ketone (test code = Ketone) Trace Bilirubin (test code = Bilirubin) Negative Glucose (test code = Glucose) Negative Appearance (test code = Appearance) Clear Color (test code = Color) Dark Yellow [facility] - [id number] 13:58:53* Test Item Value Reference Range Interpretation Comme nts Leukocytes (test code = Leukocytes) Small Nitrite (test code = Nitrite) negative Urobilinogen (test code = Urobilinogen) 1 Protein (test code = Protein) Trace pH (test code = pH) 6.0 Blood (test code = Blood) Negative Specific [place] (test code = Specific [place]) 1.030 Ketone (test code = Ketone) Trace Bilirubin (test code = Bilirubin) Negative Glucose (test code = Glucose) Negative Appearance (test code = Appearance) Clear Color (test code = Color) Dark Yellow [facility]Ur[facility] (dipstick) panel - [id number] 13:58:53* Test Item Value Reference Range Interpretation Comme nts Leukocytes (test code = Leukocytes) Small Nitrite (test code = Nitrite) negative Urobilinogen (test code = Urobilinogen) 1 Protein (test code = Protein) Trace pH (test code = pH) 6.0 Blood (test code = Blood) Negative Specific [place] (test code = Specific [place]) 1.030 Ketone (test code = Ketone) Trace Bilirubin (test code = Bilirubin) Negative Glucose (test code = Glucose) Negative Appearance (test code = Appearance) Clear Color (test code = Color) Dark Yellow [facility] GroupUrinalysis macro (dipstick) panel - [id number] 13:58:53* Test Item Value Reference Range Interpretation Comme nts Leukocytes (test code = Leukocytes) Small Nitrite (test code = Nitrite) negative Urobilinogen (test code = Urobilinogen) 1 Protein (test code = Protein) Trace pH (test code = pH) 6.0 Blood (test code = Blood) Negative Specific [place] (test code = Specific [place]) 1.030 Ketone (test code = Ketone) Trace Bilirubin (test code = Bilirubin) Negative Glucose (test code = Glucose) Negative Appearance (test code = Appearance) Clear Color (test code = Color) Dark Yellow [facility]dipstick) panel - [id number] 13:58:53* Test Item Value Reference Range Interpretation Comme nts Leukocytes (test code = Leukocytes) Small Nitrite (test code = Nitrite) negative Urobilinogen (test code = Urobilinogen) 1 Protein (test code = Protein) Trace pH (test code = pH) 6.0 Blood (test code = Blood) Negative Specific [place] (test code = Specific [place]) 1.030 Ketone (test code = Ketone) Trace Bilirubin (test code = Bilirubin) Negative Glucose (test code = Glucose) Negative Appearance (test code = Appearance) Clear Color (test code = Color) Dark Yellow [facility] Differential panel - [id number] 10:28:00 * Test Item Value Reference Range Interpretation Comme nts white blood count (test code = white blood count) 9.5 K/uL 4.0-11.5 red blood count (test code = red blood count) 3.83 M/uL 3.80-5.20 hemoglobin (test code = hemoglobin) 9.7 g/dL 10.5-15.7 L hematocrit (test code = hematocrit) 32.9 % 34.0-50.0 L MCV [Entitic volume] (test c ode = 15550-9) 85.9 fL 86-100 L mean corpuscular hemoglobin (test code = mean corpuscular hemoglobin) 25.3 pg 26.2-33.4 L mean corpuscular HGB conc (t est code = mean corpuscular HGB conc) 29.5 g/dL 30-34 L red cell distribution width (test code = red cell distribution width) 13.3 % 12.0-15.5 platelet count (test code = platelet count) 171 K/uL 165-450 mean platelet volume (test c ode = mean platelet volume) 12.2 fL 9.4-12.6 Segmented neutrophils/100 leukocytes in Blood (test code = 20197-9) 74.0 % 44.4-80.1 Immature granulocytes [#/vol ume] in Blood (test code = 77753-1) 0.3 K/uL 0.0-0.03 H lymphocyte% (test code = lymphocyte%) 16.7 % 10.0-50.0 mono % (test code = mono %) 5.1 % 3.6-12.0 eos % (test code = eos %) 0.8 % 0.0-5.4 Basophils/100 leukocytes in Unspecified specimen (test code = 19214-7) 0.8 % 0.1-1.2 Band form neutrophils [#/vol ume] in Blood (test code = 43796-2) 7.05 K/uL 1.56-6.13 H Lymphocytes [#/volume] in Unspecified specimen by Automated count (test code = 60490-2) 1.6 K/uL 1.18-3.74 mono # (test code = mono #) 0.49 K/uL 0.24-0.86 eos # (test code = eos #) 0.08 K/uL 0.04-0.36 basophil # (test code = baso yamileth #) 0.08 K/uL 0.01-0.08 NRBC% (test code = NRBC%) 0 /100 WBC 0-0.2 NRBC# (test code = NRBC#) 0 K/uL [facility] W Auto Differential panel - [id number] 10:28:00 * Test Item Value Reference Range Interpretation Comme nts white blood count (test code = white blood count) 9.5 K/uL 4.0-11.5 red blood count (test code = red blood count) 3.83 M/uL 3.80-5.20 hemoglobin (test code = hemoglobin) 9.7 g/dL 10.5-15.7 L hematocrit (test code = hematocrit) 32.9 % 34.0-50.0 L MCV [Entitic volume] (test c ode = 88355-3) 85.9 fL 86-100 L mean corpuscular hemoglobin (test code = mean corpuscular hemoglobin) 25.3 pg 26.2-33.4 L mean corpuscular HGB conc (t est code = mean corpuscular HGB conc) 29.5 g/dL 30-34 L red cell distribution width (test code = red cell distribution width) 13.3 % 12.0-15.5 platelet count (test code = platelet count) 171 K/uL 165-450 mean platelet volume (test c ode = mean platelet volume) 12.2 fL 9.4-12.6 Segmented neutrophils/100 leukocytes in Blood (test code = 91152-6) 74.0 % 44.4-80.1 Immature granulocytes [#/vol ume] in Blood (test code = 15495-9) 0.3 K/uL 0.0-0.03 H lymphocyte% (test code = lymphocyte%) 16.7 % 10.0-50.0 mono % (test code = mono %) 5.1 % 3.6-12.0 eos % (test code = eos %) 0.8 % 0.0-5.4 Basophils/100 leukocytes in Unspecified specimen (test code = 12017-5) 0.8 % 0.1-1.2 Band form neutrophils [#/vol ume] in Blood (test code = 57776-3) 7.05 K/uL 1.56-6.13 H Lymphocytes [#/volume] in Unspecified specimen by Automated count (test code = 77786-5) 1.6 K/uL 1.18-3.74 mono # (test code = mono #) 0.49 K/uL 0.24-0.86 eos # (test code = eos #) 0.08 K/uL 0.04-0.36 basophil # (test code = baso yamileth #) 0.08 K/uL 0.01-0.08 NRBC% (test code = NRBC%) 0 /100 WBC 0-0.2 NRBC# (test code = NRBC#) 0 K/uL [facility] W Auto Differential panel - [id number] 10:00:00 * Test Item Value Reference Range Interpretation Comme nts white blood count (test code = white blood count) 9.4 K/uL 4.0-11.5 red blood count (test code = red blood count) 3.72 M/uL 3.80-5.20 L hemoglobin (test code = hemoglobin) 10.1 g/dL 10.5-15.7 hematocrit (test code = hematocrit) 33.2 % 34.0-50.0 L MCV [Entitic volume] (test c ode = 39955-3) 89.2 fL 86-100 mean corpuscular hemoglobin (test code = mean corpuscular hemoglobin) 27.2 pg 26.2-33.4 mean corpuscular HGB conc (t est code = mean corpuscular HGB conc) 30.4 g/dL 30-34 red cell distribution width (test code = red cell distribution width) 13.3 % 12.0-15.5 platelet count (test code = platelet count) 158 K/uL 165-450 L mean platelet volume (test c ode = mean platelet volume) 12.2 fL 9.4-12.6 Segmented neutrophils/100 leukocytes in Blood (test code = 39143-9) 70.8 % 44.4-80.1 Immature granulocytes [#/vol ume] in Blood (test code = 72203-3) 0.3 K/uL 0.0-0.03 H lymphocyte% (test code = lymphocyte%) 17.4 % 10.0-50.0 mono % (test code = mono %) 6.2 % 3.6-12.0 eos % (test code = eos %) 1.1 % 0.0-5.4 Basophils/100 leukocytes in Unspecified specimen (test code = 17642-2) 0.9 % 0.1-1.2 Band form neutrophils [#/vol ume] in Blood (test code = 18027-7) 6.64 K/uL 1.56-6.13 H Lymphocytes [#/volume] in Unspecified specimen by Automated count (test code = 25052-6) 1.6 K/uL 1.18-3.74 mono # (test code = mono #) 0.58 K/uL 0.24-0.86 eos # (test code = eos #) 0.10 K/uL 0.04-0.36 basophil # (test code = baso yamileth #) 0.08 K/uL 0.01-0.08 NRBC% (test code = NRBC%) 0 /100 WBC 0-0.2 NRBC# (test code = NRBC#) 0 K/uL [facility] Ab [Presence] in [id number] 10:00:00HIV P24 AgHIV-1/2 AbMatagoGro[facility] GroupReagin Ab [Presence] in Serum by RPR 2020-08-09 10:00:00* Test Item Value Reference Range Interpretation Comme nts Reagin Ab [Presence] in Seru m by RPR (test code = 68877-6) nonreactive nonreactive [facility] GroupBlood group antibody screen [Presence] in Serum or Plasma 2020-08-09 10:00:00* Test Item Value Reference Range Interpretation Comme nts Blood group antibody screen [Presence] in Serum or Plasma (test code = 890-4) negative [facility]dipstick[facility] panel - [id number] 13:44:47* Test Item Value Reference Range Interpretation Comme nts Leukocytes (test code = Leukocytes) Negative Nitrite (test code = Nitrite) negative Urobilinogen (test code = Urobilinogen) 2 Protein (test code = Protein) 30 pH (test code = pH) 5.5 Blood (test code = Blood) Negative Specific [place] (test code = Specific [place]) 1.025 Ketone (test code = Ketone) Small Bilirubin (test code = Bilirubin) Small Glucose (test code = Glucose) Negative Appearance (test code = Appearance) Clear Color (test code = Color) Yellow [facility] GroupUrinalysis macro (dipstick) panel - [id number] 13:44:47* Test Item Value Reference Range Interpretation Comme nts Leukocytes (test code = Leukocytes) Negative Nitrite (test code = Nitrite) negative Urobilinogen (test code = Urobilinogen) 2 Protein (test code = Protein) 30 pH (test code = pH) 5.5 Blood (test code = Blood) Negative Specific [place] (test code = Specific [place]) 1.025 Ketone (test code = Ketone) Small Bilirubin (test code = Bilirubin) Small Glucose (test code = Glucose) Negative Appearance (test code = Appearance) Clear Color (test code = Color) Yellow [facility]NG/TV + reflex HR [id number] 00:00:00* Test Item Value Reference Range Interpretation Comme nts chlamydia trachomatis by marcio l-time PCR (reflex to azithromycin resistance by pyrosequencing) (test code = chlamydia trachomatis by real-time PCR (reflex to azithromycin resistance by pyrosequencing)) negative trichomonas vaginalis by marcio l-time PCR (reflex to metronidazole resistance) (test code = trichomonas vaginalis by real-time PCR (reflex to metronidazole resistance)) negative neisseria gonorrhoeae by marcio l-time PCR (reflex to antibiotic resistance by molecular analysis) (test code = neisseria gonorrhoeae by real-time PCR (reflex to antibiotic resistance by molecular analysis)) negative liquid Pap test with reflex to HPV type-detect 3.0 high risk if ASCUS (test code = liquid Pap test with reflex to HPV type-detect 3.0 high risk if ASCUS) negative [facility] Ab [Presence] in [id number] 10:18:00HIV P24 AgHIV-1/2 AbMataJohn C. Stennis Memorial HospitalReagin Ab [Presence] in Serum by RPR 2020-04-15 10:18:00* Test Item Value Reference Range Interpretation Comme nts Reagin Ab [Presence] in Seru m by RPR (test code = 96052-4) nonreactive nonreactive [facility] HospitalHepatitis [facility] virus surface Ag [Presence] in Serum 2020-04-15 10:15:00* Test Item Value Reference Range Interpretation Comme nts .hepatitis B surface antigen (test code = .hepatitis B surface antigen) negative negative [facility] HospitalCB [facility] Auto Differential panel - [id number] 09:42:00 * Test Item Value Reference Range Interpretation Comme nts white blood count (test code = white blood count) 9.4 K/uL 4.0-11.5 red blood count (test code = red blood count) 4.73 M/uL 3.80-5.20 hemoglobin (test code = hemoglobin) 13.0 g/dL 10.5-15.7 hematocrit (test code = hematocrit) 41.1 % 34.0-50.0 MCV [Entitic volume] (test c ode = 72422-5) 86.9 fL 86-100 mean corpuscular hemoglobin (test code = mean corpuscular hemoglobin) 27.5 pg 26.2-33.4 mean corpuscular HGB conc (t est code = mean corpuscular HGB conc) 31.6 g/dL 30-34 red cell distribution width (test code = red cell distribution width) 13.9 % 12.0-15.5 platelet count (test code = platelet count) 171 K/uL 165-450 mean platelet volume (test c ode = mean platelet volume) 12.8 fL 9.4-12.6 H Segmented neutrophils/100 leukocytes in Blood (test code = 70094-4) 79.1 % 44.4-80.1 Immature granulocytes [#/vol ume] in Blood (test code = 85837-7) 0.1 K/uL 0.0-0.03 H lymphocyte% (test code = lymphocyte%) 14.2 % 10.0-50.0 mono % (test code = mono %) 5.4 % 3.6-12.0 eos % (test code = eos %) 0.3 % 0.0-5.4 Basophils/100 leukocytes in Unspecified specimen (test code = 80244-2) 0.4 % 0.1-1.2 Band form neutrophils [#/vol ume] in Blood (test code = 21957-2) 7.40 K/uL 1.56-6.13 H Lymphocytes [#/volume] in Unspecified specimen by Automated count (test code = 12339-0) 1.3 K/uL 1.18-3.74 mono # (test code = mono #) 0.51 K/uL 0.24-0.86 eos # (test code = eos #) 0.03 K/uL 0.04-0.36 L basophil # (test code = baso yamileth #) 0.04 K/uL 0.01-0.08 NRBC% (test code = NRBC%) 0 /100 WBC 0-0.2 NRBC# (test code = NRBC#) 0 K/uL [facility]AB[facility] Rh group [Type] in [id number] 09:42:00* Test Item Value Reference Range Interpretation Comme nts Rh [Type] in Blood (test cod e = 93968-5) 4+ ABO and Rh group panel - Blo od (test code = 78492-3) O positive [facility] [Presence] in Serum or Plasma 2020-04-15 09:42:00* Test Item Value Reference Range Interpretation Comme nts Blood group antibody screen [Presence] in Serum or Plasma (test code = 890-4) negative [facility] GroupBacteria identified in Urine by [id number] 09:42:00Bacteria Ur CultMatagorda Medical GroupChromosome 13+18+21+X+Y aneuploidy in Blood by Molecular genetics method [id number] 00:00:00* Test Item Value Reference Range Interpretation Comme nts report summary (test code = report summary) see notes report note (test code = report note) see notes trisomy 13 age-based risk score (test code = trisomy 13 age-based risk score) trisomy 13 risk score (test code = trisomy 13 risk score) trisomy 13 age-based risk text (test code = trisomy 13 age-based risk text) 1/9,389 (0.01%) trisomy 13 risk score text (test code = trisomy 13 risk score text) <1/10,000 (<0.01%) trisomy 13 age-based risk fraction (test code = trisomy 13 age-based risk fraction) trisomy 13 risk score fraction (test code = trisomy 13 risk score fraction) trisomy 13 result text (test code = trisomy 13 result text) low risk trisomy 13 result comments (test code = trisomy 13 result comments) see notes trisomy 18 age-based risk score (test code = trisomy 18 age-based risk score) trisomy 18 risk score (test code = trisomy 18 risk score) trisomy 18 age-based risk text (test code = trisomy 18 age-based risk text) 1/3,015 (0.03%) trisomy 18 risk score text (test code = trisomy 18 risk score text) <1/10,000 (<0.01%) trisomy 18 age-based risk fraction (test code = trisomy 18 age-based risk fraction) trisomy 18 risk score fraction (test code = trisomy 18 risk score fraction) trisomy 18 result text (test code = trisomy 18 result text) low risk trisomy 18 result comments (test code = trisomy 18 result comments) see notes trisomy 21 age-based risk score (test code = trisomy 21 age-based risk score) trisomy 21 risk score (test code = trisomy 21 risk score) trisomy 21 age-based risk text (test code = trisomy 21 age-based risk text) 1/1,140 (0.09%) trisomy 21 risk score text (test code = trisomy 21 risk score text) <1/10,000 (<0.01%) trisomy 21 age-based risk fraction (test code = trisomy 21 age-based risk fraction) trisomy 21 risk score fraction (test code = trisomy 21 risk score fraction) trisomy 21 result text (test code = trisomy 21 result text) low risk trisomy 21 result comments (test code = trisomy 21 result comments) see notes monosomy X age-based risk score (test code = monosomy X age-based risk score) monosomy X risk score (test code = monosomy X risk score) monosomy X age-based risk text (test code = monosomy X age-based risk text) 1/568 (0.18%) monosomy X risk score text (test code = monosomy X risk score text) <1/10,000 (<0.01%) monosomy X age-based risk fraction (test code = monosomy X age-based risk fraction) monosomy X risk score fraction (test code = monosomy X risk score fraction) monosomy X result text (test code = monosomy X result text) low risk monosomy X result comments (test code = monosomy X result comments) see notes triploidy result text (test code = triploidy result text) low risk triploidy result comments (test code = triploidy result comments) see notes gender of fetus (test code = gender of fetus) male fraction (in %) (test code = fraction (in %)) 7.8 % fraction (test code = fraction) 7.8% footnotes (test code = footnotes) see notes boiler plate text (test code = boiler plate text) see notes references (test code = references) see notes approvals (test code = approvals) see notes contacts (test code = contacts) see notes [facility] [id number] 16:13:00* Test Item Value Reference Range Interpretation Comme nts SODIUM (test code = NA) 135.0 mmol/L 133-144 N POTASSIUM (test code = K) 3.7 mmol/L 3.5-5.1 N CHLORIDE (test code = CL) 105 mmol/L 95-105 N CARBON DIOXIDE (test code = CO2) 21 mmol/L 21-32 N ANION GAP (test code = GAP) 9.0 GAP calc 4.0-15.0 N GLUCOSE (test code = GLU) 71 MG/DL 70-110 N BLOOD UREA NITROGEN (test code = BUN) 4 MG/DL 7-18 L GLOMERULAR FILTRATION RATE (test code = GFR) 157 estGFR >60 The estimated glomerular filtration rate is computed usingpatient race, age, sex, and serum creatinine. If any of theneeded data elements are missing the Laboratory can notcompute an estimation of the glomerular filtration rate.The GFR value units = ml/min/1.73 meter squared. EstimatedGFR values above 60 should be interpreted as >60, not anexact number.--- DRUG DOSAGE ALERT --- Drug dosage adjustments utilize different calculationparameter s. CREATININE (test code = CREAT) 0.49 MG/DL 0.55-1.30 L Results may be depressed if patient is takingN-Acetylcystei ne (NAC) and Metamizole (Dipyrone). TOTAL PROTEIN (test code = PROT) 7.8 G/DL 6.4-8.2 N ALBUMIN (test code = ALB) 3.4 G/DL 3.4-5.0 N ALBUMIN/GLOBULIN RATIO (test code = A/G) 0.8 RATIO 1.2-2.2 L CALCIUM (test code = CA) 9.2 MG/DL 8.5-10.1 N BILIRUBIN TOTAL (test code = BILT) 0.33 MG/DL 0.00-1.00 N BILIRUBIN DIRECT (test code = BILD) < 0.10 MG/DL 0.00-0.30 N BILIRUBIN INDIRECT (test code = BILIND) CALC DOMINGA MG/DL 0.2-1.3 L SGOT/AST (test code = AST) 20 Unit/L 15-37 N SGPT/ALT (test code = ALT) 19 Unit/L 12-78 N ALKALINE PHOSPHATASE TOTAL (test code = ALKP) 58 Unit/L 45-117 N INDEX HEMOLYSIS (test code = HEMINDEX) 3 SMALL 25-50 MG Index/DL 1 NORMAL INDEX ICTERIC (test code = ICTINDEX) 1 NORMAL <2 MG Index/DL 1 NORMAL INDEX LIPEMIA (test code = LIPINDEX) 1 NORMAL <50 MG Index/DL 1 NORMAL HCG [id number] 16:13:00* Test Item Value Reference Range Interpretation Comme nts HCG SERUM (test code = HCG) 078564 mi-IU/ML 0-3 H HCG RANGES DURIN G NORMAL PREGNANCYPOST LMP 3-4 WEEKS 9 - 130 MIU/ML4-5 WEEKS 75 - 2,600 MIU/ML5-6 WEEKS 850 - 20,800 MIU/ML6-7 WEEKS 4,000 - 100,200 MIU/ML7-12 WEEKS 11,500 - 289,000 MIU/ML12-16 WEEKS 18,300 - 137,000 MIU/ML16-29 WEEKS 1,400 - 53,000 MIU/ML 29-41 WEEKS 940 - 60,000 MIU/ML - US PREG EVAL 1ST [id number] 16:03:00Patient Name: ELLIE CHU Unit No: [id number] EXAMS: CPT CODE: [id number] US PREG EVAL 1ST TRIMTR [id number] INDICATION: 12 wk abdominal pain confirm iup LOCATION: T18 COMPARISON: None available. FINDINGS: Intrauterine gestational sac noted, with an average gestational sac diameter of 5.63 cm. This corresponds to a gestational age by ultrasound of 12 weeks and 3 days. [place]-rump length is 5.76 cm. This corresponds to a gestational age by ultrasound of 12 weeks 2 days. heart tones are present measuring 165 bpm Right ovary measures 2 x 1.5 x 1.5 cm and is unremarkable in appearance. Left ovary measures 1.9 x 1.3 x 1.4 cm and is unremarkable in appearance. There is normal symmetric ovarianblood flow at this time bilaterally. Possible 3.7 cm uterine fibroid within the anterior uterus. IMP RESSION: 1. Early intrauterine as described. Continued followup is advised. at 1603 Reported and signed by: Sal Kolb MD CC: Benson Mandujano MD Technologist: Lynn Cohen Trnscrbd D/ (1603) [id number]: Orig Print D/T: S: 04/04/2020 (1605) Probe: MONA Blanco NAME: [address] PHYS: Benson Block MD, [place] [address] : 1995 AGE: 24 SEX: F LOC: B.ERS PHONE #: [phone] EXAM DATE: 04/04/2020 STATUS: REG ER FAX #: [phone] RAD NO: Page 1 Signed ReportCOMPREHENSIVE METABOLIC [id number] 15:40:00* Test Item Value Reference Range Interpretation Comme nts SODIUM (test code = NA) 135.0 mmol/L 133-144 N POTASSIUM (test code = K) 3.7 mmol/L 3.5-5.1 N CHLORIDE (test code = CL) 105 mmol/L 95-105 N CARBON DIOXIDE (test code = CO2) 21 mmol/L 21-32 N ANION GAP (test code = GAP) 9.0 GAP calc 4.0-15.0 N GLUCOSE (test code = GLU) 71 MG/DL 70-110 N BLOOD UREA NITROGEN (test code = BUN) 4 MG/DL 7-18 L GLOMERULAR FILTRATION RATE (test code = GFR) 157 estGFR >60 The estimated glomerular filtration rate is computed usingpatient race, age, sex, and serum creatinine. If any of theneeded data elements are missing the Laboratory can notcompute an estimation of the glomerular filtration rate.The GFR value units = ml/min/1.73 meter squared. EstimatedGFR values above 60 should be interpreted as >60, not anexact number.--- DRUG DOSAGE ALERT --- Drug dosage adjustments utilize different calculationparameter s. CREATININE (test code = CREAT) 0.49 MG/DL 0.55-1.30 L Results may be depressed if patient is takingN-Acetylcystei ne (NAC) and Metamizole (Dipyrone). TOTAL PROTEIN (test code = PROT) 7.8 G/DL 6.4-8.2 N ALBUMIN (test code = ALB) 3.4 G/DL 3.4-5.0 N ALBUMIN/GLOBULIN RATIO (test code = A/G) 0.8 RATIO 1.2-2.2 L CALCIUM (test code = CA) 9.2 MG/DL 8.5-10.1 N BILIRUBIN TOTAL (test code = BILT) 0.33 MG/DL 0.00-1.00 N BILIRUBIN DIRECT (test code = BILD) < 0.10 MG/DL 0.00-0.30 N BILIRUBIN INDIRECT (test code = BILIND) CALC DOMINGA MG/DL 0.2-1.3 L SGOT/AST (test code = AST) 20 Unit/L 15-37 N SGPT/ALT (test code = ALT) 19 Unit/L 12-78 N ALKALINE PHOSPHATASE TOTAL (test code = ALKP) 58 Unit/L 45-117 N INDEX HEMOLYSIS (test code = HEMINDEX) 3 SMALL 25-50 MG Index/DL 1 NORMAL INDEX ICTERIC (test code = ICTINDEX) 1 NORMAL <2 MG Index/DL 1 NORMAL INDEX LIPEMIA (test code = LIPINDEX) 1 NORMAL <50 MG Index/DL 1 NORMAL HCG [id number] 15:40:00* Test Item Value Reference Range Interpretation Comme nts HCG SERUM (test code = HCG) mi-IU/ML 0-3 COMPREHENSIVE METABOLIC [id number] 15:37:00* Test Item Value Reference Range Interpretation Comme nts SODIUM (test code = NA) 135.0 mmol/L 133-144 N POTASSIUM (test code = K) 3.7 mmol/L 3.5-5.1 N CHLORIDE (test code = CL) 105 mmol/L 95-105 N CARBON DIOXIDE (test code = CO2) 21 mmol/L 21-32 N ANION GAP (test code = GAP) 9.0 GAP calc 4.0-15.0 N GLUCOSE (test code = GLU) 71 MG/DL 70-110 N BLOOD UREA NITROGEN (test code = BUN) 4 MG/DL 7-18 L CREATININE (test code = CREAT) MG/DL 0.55-1.30 TOTAL PROTEIN (test code = PROT) G/DL 6.4-8.2 ALBUMIN (test code = ALB) 3.4 G/DL 3.4-5.0 N ALBUMIN/GLOBULIN RATIO (test code = A/G) RATIO 1.2-2.2 CALCIUM (test code = CA) 9.2 MG/DL 8.5-10.1 N BILIRUBIN TOTAL (test code = BILT) MG/DL 0.00-1.00 BILIRUBIN DIRECT (test code = BILD) MG/DL 0.00-0.30 BILIRUBIN INDIRECT (test code = BILIND) MG/DL 0.2-1.3 SGOT/AST (test code = AST) Unit/L 15-37 SGPT/ALT (test code = ALT) Unit/L 12-78 ALKALINE PHOSPHATASE TOTAL (test code = ALKP) Unit/L 45-117 INDEX HEMOLYSIS (test code = HEMINDEX) 3 SMALL 25-50 MG Index/DL 1 NORMAL INDEX ICTERIC (test code = ICTINDEX) 1 NORMAL <2 MG Index/DL 1 NORMAL INDEX LIPEMIA (test code = LIPINDEX) 1 NORMAL <50 MG Index/DL 1 NORMAL HCG [id number] 15:37:00* Test Item Value Reference Range Interpretation Comme nts HCG SERUM (test code = HCG) mi-IU/ML 0-3 URINALYSIS [id number] 15:21:00* Test Item Value Reference Range Interpretation Comme nts UA COLOR (test code = COLU) YELLOW DESCRIPT YELLOW UA APPEARANCE (test code = APPU) TURBID (1+)HAZY-CLDY DESCRIPT CLEAR A UA GLUCOSE DIPSTICK (test code = DGLUU) NORMAL (0) mg/dL 0 (NORMAL) UA BILIRUBIN DIPSTICK (test code = BILU) NEGATIVE (0.0) mg/dL (NEG) 0 UA KETONE DIPSTICK (test code = KETU) OVER >150 (4+) mg/dL (NEG) 0 A UA SPECIFIC GRAVITY (test code = SGU) 1.024 SG 1.001-1.035 UA BLOOD DIPSTICK (test code = NAVIN) NEGATIVE (0.00) mg/dL 0 (NEG) UA PH DIPSTICK (test code = VICENTE) 6.0 pH UNITS 4.6-8.0 UA PROTEIN DIPSTICK (test code = PROU) 30 (1+) mg/dL <30 (1+) A UA UROBILINIOGEN DIPSTICK (test code = URO) 2 (1+) mg/Dl <2.0 (1+) A UA NITRITE DIPSTICK (test code = AKHIL) NEGATIVE (0) SCREEN NEG UA LEUKOCYTE ESTERASE DIPSTICK (test code = LEUU) 75 Leuk/mcL (NEG) 0 A UA WBC (test code = WBCU) 3-5 #WBC/HPF 0-3 UA RBC (test code = RBCU) NONE #RBC/HPF 0-3 UA BACTERIA (test code = BACU) MODERATE >5 /HPF NONE-FEW A UA SQUAMOUS CELLS (test code = SQU) MODERATE >10 /UL NONE-SQepi UA MUCUS (test code = MUCU) MANY /LPF NONE A CBC W/AUTO [id number] 15:16:00* Test Item Value Reference Range Interpretation Comme nts WHITE BLOOD CELL (test code = WBC) 9.6 K/mm3 4.1-12.1 N RED BLOOD CELL (test code = RBC) 4.84 M/mm3 3.8-5.5 N HEMOGLOBIN (test code = HGB) 13.1 G/DL 10.6-15.8 N HEMATOCRIT (test code = HCT) 43.0 % 31.8-47.4 N MEAN CELL VOLUME (test code = MCV) 88.8 fL 80.1-101.1 N MEAN CELL HGB (test code = MCH) 27.1 pg 25.3-35.3 N MEAN CELL HGB CONCETRATION ( test code = MCHC) 30.5 G/DL 32.7-35.1 L RED CELL DISTRIBUTION WIDTH (test code = RDW) 14.5 % 12.2-16.4 N RED CELL DISTRIBUTION WIDTH (test code = RDW-SD) 46.4 fL 36.4-46.3 H PLATELET COUNT (test code = PLT) 196 K/mm3 155-337 N MEAN PLATELET VOLUME (test c ode = MPV) 12.1 fL 6.8-11.2 H GRANULOCYTE % (test code = GR%) 76.0 % 37.8-82.6 N IMMATURE GRANULOCYTE % (test code = IG%) 0.4 % 0.0-2.0 N LYMPHOCYTE % (test code = LY%) 16.5 % 14.1-45.4 N MONOCYTE % (test code = MO%) 5.7 % 2.5-11.7 N EOSINOPHIL % (test code = EO%) 0.7 % 0.0-6.2 N BASOPHIL % (test code = BA%) 0.7 % 0.0-2.1 N NUCLEATED RBC % (test code = NRBC%) 0.0 /100WBC% 0.0-1.0 N GRANULOCYTE # (test code = GR#) 7.25 k/mm3 2.0-13.7 N IMMATURE GRANULOCYTE # (test code = IG#) 0.04 K/mm3 0.00-0.03 H LYMPHOCYTE # (test code = LY#) 1.58 K/mm3 0.6-3.8 N MONOCYTE # (test code = MO#) 0.54 K/mm3 0.11-0.59 N EOSINOPHIL # (test code = EO#) 0.07 K/mm3 0.0-0.4 N BASOPHIL # (test code = BA#) 0.07 K/mm3 0.0-0.1 N NUCLEATED RBC # (test code = NRBC#) 0.00 K/mm3 0.0-0.05 N test, [id number] 15:31:48* Test Item Value Reference Range Interpretation Comme [facility] Test (test code = Test) [facility], [id number] 15:29:45* Test Item Value Reference Range Interpretation Comme [facility] Test (test code = Test) [facility], [id number] 10:22:00* Test Item Value Reference Range Interpretation Comme [facility] Test (test code = Test) negative [facility], [id number] 15:28:21* Test Item Value Reference Range Interpretation Comme [facility] Test (test code = Test) negative [facility] Notes Date/Time Note Provider Source 2024-03-13 13:09:47 Dating ultrasound and promethazine erx sent [facility] 2024-03-13 13:02:38 Notified the patient of her positive STI results chlamydia. Notified the patient her medication has been sent to her pharmacy on file. Educated patient she should complete the entire course, advised patient to practice safe sex practices and to remain abstinent for at least 1-2 weeks post treatment. Patient declines to have partner treated, stated he is incarcerated. Offered std pamphlet for partner education. Patient declinedstd pamphlet to be mailed to partner. Advised patient on HIV testing if she has not recently been tested. Advised TODD appointment in 3 months. Pt verbalized understanding. Pt stated her medicaid is active and would like orders for USG. Pt stated she would also like nausea medication sent to pharmacy. Informed will route to provider for orders. [facility] Mary Rolle LVN [facility] 2024-03-13 08:41:00 Attempted to call patient, no answer, left vm. [facility] 2024-03-13 06:41:26 Pt tested positive for chlamydia. Prescription for azithromycin routed to her pharmacy on file/ordered for clinic pickup/administration. Please notify patient of results. Her partner needs to be notified and should be encouraged to follow up with his PCP or may come to [facility] for treatment. If the partner is unwilling or unable to come to the clinic, PDPT/EPT can be initiated. If the patient s partner has no allergies to antibiotics and does not have any abdominal pain, pelvic pain, or genital/groin pain, you may route a prescription for docycycline to the partner s choice of pharmacy and mail a copy of the STD handouts to the patient or may mail to the partner for delivery to the patient. If the patient reports her partner is symptomatic he should be encouraged to seek treatment immediately and in person. The patient should have a follow up STD screen in 3 months which has been future ordered (if will need TODD in 3-4 weeks). [facility] 2020-04-04 16:35:00 [facility] ([facility] EMERGENCY PROVIDER REPORT REPORT#:[id number] REPORT STATUS: Signed DATE:04/04/20 TIME: 1635 PATIENT: ELLIE CHU UNIT #: [id number] ROOM/BED: AGE: 24 SEX: F PCP PHYS: No Primary or Family Physician SERVICE AUTHOR: Benson Mandujano MD * ALL edits or amendments must be made on the electronic/computer document * HPI-Preg Under 20 Weeks General Initial Greet Date/Time 04/04/20 1436 Presentation Chief Complaint Dysuria Context: Preg test pos serum Hx Obtained From Patient Onset Occurred Gradual Free Text HPI Notes Free Text HPI Notes G3, P2 presents with abdominal pain nausea dysuria going on for the past 2 weeks. Patient follows with Dr. Rodriguez. Patient reports LMP was 12 weeks prior but has not had follow-up ultrasound performed yet reports she is taking Zofran with no relief of symptoms. No fevers or chills. Risk-Preg Under 20 Weeks Risk Stratification Ectopic Risk factors reviewed Review of Systems ROS Statements All systems rev neg except as marked. Free Text ROS Notes Free Text ROS Notes Dehydration Past Medical History - Adult Stated Complaint ABD PAIN AND NAUSEA AND FREQUENCY Allergies Coded Allergies: No Known Allergies (04/04/20) Home Medications Active Scripts DOCUSATE SODIUM (COLACE) 100 MG PO BID PRN constipation DOCUSATE SODIUM (COLACE) 100 MG PO BID PRN constipation #30 CAP Prov: 05/16/17 POLYETHYLENE GLYCOL 3350 (MIRALAX) 17 GM PO DAILY PRN constipation POLYETHYLENE GLYCOL 3350 (MIRALAX) 17 GM PO DAILY PRN constipation #30 PACKET Prov: 05/16/17 FERROUS SULFATE (FEOSOL) 325 MG PO TID FERROUS SULFATE (FEOSOL) 325 MG PO TID #180 TABS Prov: 05/04/18 ACETAMINOPHEN (TYLENOL) 325 MG PO Q6H PRN PRN HEADACHE/PAIN SCALE 1-3 ACETAMINOPHEN (TYLENOL) 325 MG PO Q6H PRN PRN HEADACHE/PAIN SCALE 1-3 #30 TAB Prov: 05/04/18 Reported Medications PNV/FE FUM/FA ( MULTIVITAMIN) 1 TAB PO DAILY Additional Surgical History none Smoking status for patients 13 years old or older: Never Smoker Physical Exam Vital Signs Vital Signs First Documented: Result Date Time Pulse Ox 100 04/04 1427 B/P 120/74 04/04 1427 B/P Mean 89 04/04 142 O2 Delivery Room air 04/04 1427 Temp 97.5 04/04 1427 Pulse 99 04/04 1427 Resp 16 04/04 1427 Last Documented: Result Date Time Pulse Ox 100 04/04 1427 B/P 120/74 04/04 1427 B/P Mean 89 04/04 142 O2 Delivery Room air 04/04 1427 Temp 97.5 04/04 1427 Pulse 99 04/04 142 Resp 16 04/04 1427 Review of Vital Signs Reviewed Basic Physical Exam Basic PE HEAD: Atraumatic/NC, EYES: PERRL, conj clear, ENT: Membranes moist, NECK: Supple, RESP: No resp distress, CV: Reg rate rhythm, EXT: No gross abnormality, SKIN: No rashes, warm/dry, NEURO: alert oriented, NEURO: gross movement NL, PSYCH: NL thought content Focused PE General/Const General/Const Awake, Alert Abdomen/GI Abdomen/GI Atraumatic, Soft, Non-tender Genitourinary General Exam deferred Interpretation Diagnostics Lab Results Interpretation Results Laboratory Tests 04/04/20 1503: [Embedded Image Not Available] Laboratory Tests: 04/04 1503 Chemistry Sodium (133 - 144 mmol/L) 135.0 Potassium (3.5 - 5.1 mmol/L) 3.7 Chloride (95 - 105 mmol/L) 105 Carbon Dioxide (21 - 32 mmol/L) 21 Anion Gap (4.0 - 15.0 GAP calc) 9.0 BUN (7 - 18 MG/DL) 4 L Creatinine (0.55 - 1.30 MG/DL) 0.49 L Glomerular Filtr Rate (>60 estGFR) 157 Glucose (70 - 110 MG/DL) 71 Calcium (8.5 - 10.1 MG/DL) 9.2 Total Bilirubin (0.00 - 1.00 MG/DL) 0.33 Direct Bilirubin (0.00 - 0.30 MG/DL) < 0.10 Indirect Bilirubin (0.2 - 1.3 MG/DL) CALC DOMINGA L AST (15 - 37 Unit/L) 20 ALT (12 - 78 Unit/L) 19 Total Alk Phosphatase (45 - 117 Unit/L) 58 Total Protein (6.4 - 8.2 G/DL) 7.8 Albumin (3.4 - 5.0 G/DL) 3.4 Albumin/Globulin Ratio (1.2 - 2.2 RATIO) 0.8 L Specimen Appearance (1 NORMAL Index/DL) 1 NORMAL <2 MG Specimen Hemolysis (1 NORMAL Index/DL) 3 SMALL 25-50 MG Hematology WBC (4.1 - 12.1 K/mm3) 9.6 RBC (3.8 - 5.5 M/mm3) 4.84 Hgb (10.6 - 15.8 G/DL) 13.1 Hct (31.8 - 47.4 %) 43.0 MCV (80.1 - 101.1 fL) 88.8 MCH (25.3 - 35.3 pg) 27.1 MCHC (32.7 - 35.1 G/DL) 30.5 L RDW (12.2 - 16.4 %) 14.5 Plt Count (155 - 337 K/mm3) 196 MPV (6.8 - 11.2 fL) 12.1 H Gran % (37.8 - 82.6 %) 76.0 Lymph % (Auto) (14.1 - 45.4 %) 16.5 [place] % (Auto) (2.5 - 11.7 %) 5.7 Eos % (Auto) (0.0 - 6.2 %) 0.7 Baso % (Auto) (0.0 - 2.1 %) 0.7 Gran # (2.0 - 13.7 k/mm3) 7.25 Lymph # (Auto) (0.6 - 3.8 K/mm3) 1.58 [place] # (Auto) (0.11 - 0.59 K/mm3) 0.54 Eos # (Auto) (0.0 - 0.4 K/mm3) 0.07 Baso # (Auto) (0.0 - 0.1 K/mm3) 0.07 Immature Gran % (0.0 - 2.0 %) 0.4 Nucleated RBC % (0.0 - 1.0 /100WBC%) 0.0 Nucleated RBCs # (0.0 - 0.05 K/mm3) 0.00 Miscellaneous Maternal Serum HCG (0 - 3 mi-IU/ML) 312180 H Urines Urine Color (YELLOW DESCRIPT) YELLOW Urine Appearance (CLEAR DESCRIPT) TURBID (1+)HAZY-CLDY H Urine pH (4.6 - 8.0 pH UNITS) 6.0 Ur Specific [place] (1.001 - 1.035 SG) 1.024 Urine Protein (<30 (1+) mg/dL) 30 (1+) H Urine Glucose (UA) (0 (NORMAL) mg/dL) NORMAL (0) Urine Ketones ((NEG) 0 mg/dL) OVER >150 (4+) H Urine Blood (0 (NEG) mg/dL) NEGATIVE (0.00) Urine Nitrite (NEG SCREEN) NEGATIVE (0) Urine Bilirubin ((NEG) 0 mg/dL) NEGATIVE (0.0) Urine Urobilinogen (<2.0 (1+) mg/Dl) 2 (1+) H Ur Leukocyte Esterase ((NEG) 0 Leuk/mcL) 75 H Urine RBC (0 - 3 #RBC/HPF) NONE Urine WBC (0 - 3 #WBC/HPF) 3-5 Ur Squamous Epith Cells (NONE - SQepi /UL) MODERATE >10 Urine Bacteria (NONE - FEW /HPF) MODERATE >5 H Urine Mucus (NONE /LPF) MANY H Recent Impressions: ULTRASOUND - US PREG EVAL 1ST TRIMTR 04/04 1527 Report Impression - Status: SIGNED Entered: 04/04/2020 1606 IMPRESSION: 1. Early intrauterine as described. Continued followup is advised. Impression By: Ian - Sal Kolb MD Re-Evaluation MDM ED Course Medication(s) Ordered Medication(s) Ordered: Electrolytic, Caloric, And Michelle Sig/Jessica Start time Last Medication Dose Route Stop Time Status Admin Sodium Chloride 2,045.46 ML X1ED STA 04/04 1445 DC 04/04 IV 04/04 1446 1511 Gastrointestinal Drugs Sig/Jessica Start time Last Medication Dose Route Stop Time Status Admin Metoclopramide HCl 10 MG X1ED STA 04/04 1446 DC 04/04 IV 04/04 1447 1512 Patient Discharge Departure Vital Signs/Condition Vital Signs First Documented: Result Date Time Pulse Ox 100 04/04 1427 B/P 120/74 04/04 1427 B/P Mean 89 04/04 1427 O2 Delivery Room air 04/04 1427 Temp 97.5 04/04 142 Pulse 99 04/04 1427 Resp 16 04/04 1427 Last Documented: Result Date Time Pulse Ox 100 04/04 1427 B/P 120/74 04/04 142 B/P Mean 89 04/04 1427 O2 Delivery Room air 04/04 1427 Temp 97.5 04/04 1427 Pulse 99 04/04 1427 Resp 16 04/04 1427 All vital signs available at the time of this entry have been reviewed. Condition Improved Clinical Impression Clinical Impression Primary Impression: UTI (urinary tract infection) Secondary Impressions: Hyperemesis Disposition Decision Discharge )( Discharged to Home Yes )( Time 1636 )( Date 04/04/20 Discharge/Care Plan Referrals No Primary or Family Physician (PCP) at 1945 RPT #:[id number] END OF REPORT [facility]
[2024-03-16 11:22] LABS: Absolute Basophils 0.1 K/uL (0-0.5); Absolute Eosinophils 0.1 K/uL (0-0.5); Absolute Lymphocytes (CBC) 2.1 K/uL (0.7-4.9); Absolute Monocytes 0.6 K/uL (0.1-1.3); Basophils % 1.1 % (0-1.3); Hematocrit 39.1 % (36.0-45.0); Hemoglobin 12.4 g/dL (12.0-15.0); Lymphocytes % 23.4 % (15.3-44.8); MCH 26.7 pg (27.0-35.0); MCHC 31.6 g/dL (32.0-36.0); MCV 84.7 fL (80-100); MPV 9.4 fL (7.6-11.3); Neutrophils % 67.5 % (41.7-73.7); Platelets 253 thou/uL (152-406); RBC Red Blood Cell Count 4.62 M/uL (3.86-4.86); Red Cell Distribution Width 16.7 % (12.1-15.2)
[2024-03-16 11:34] LABS: Albumin 3.6 g/dL (3.4-5.0); Albumin/Globulin Ratio 0.8 (1.1-1.8); Anion Gap 8.7 mEq/L (5.0-15.0); Bilirubin Total 0.6 mg/dL (0.2-1.0); Globulin 4.4 g/dL (2.3-3.5); Potassium 3.7 mEq/L (3.5-5.1)
[2024-03-16 11:45] LABS: Specific Gravity 1.028 (1.005-1.030)
[2024-03-16 11:48] LABS: Specific Gravity 1.028 (1.005-1.030); Sqamous Epithelial 20-50 /HPF (None Seen); Urine Bacteria >50 /HPF (<20); Urine Bilirubin NEGATIVE (Negative); Urine Blood Negative (Negative); Urine Clarity Extremely Turbid (Clear); Urine Color Yellow (Yellow); Urine Culture Reflex Order NOT NEEDED; Urine Glucose NEGATIVE (Negative); Urine Ketones TRACE (Negative); Urine Microscopic Reflex YN ORDER UMIC; Urine Mucus 4+ /HPF (None Seen); Urine Nitrite NEGATIVE (Negative); Urine Protein TRACE (Negative); Urine RBC <5 /HPF (None Seen); Urine Urobilinogen Normal (Normal); Urine WBC >50 /HPF (<5)
[2024-03-16] MEDS ORDERED: FAMOTIDINE 20 MG/2 ML VIAL IV ONE (12:20)
[2024-03-16] MEDS ORDERED: ONDANSETRON 4 MG/2 ML VIAL ONE (12:20)
[2024-03-16] MEDS ORDERED: NA CHLORIDE 0.9% 1,000 ML ONE (12:20)
--- NOTE | 2024-03-16 13:48 | RAD REPORT ---
EXAM DESCRIPTION: US - Transvaginal OB - 03/16/2024 1:25 pm CLINICAL HISTORY: ABD CRAMPING, COMPARISON: Transvaginal OB dated 11/27/2022 TECHNIQUE: Sonographic grayscale and color flow images of a first-trimester were obtained through transvaginal approach. FINDINGS: A single live intrauterine is identified. heart rate: 129 BPM. Winnie-rump length 8.4 measures millimeters, corresponding to gestational age of 6 weeks, 5 days. Small ill-defined fluid collection with debris along the fundal to mid uterine segment, measuring up to 7 mm in thickness Normal yolk sac is visualized. Maternal ovaries are unremarkable. No free fluid. IMPRESSION: 1. Single live intrauterine . 2. Calculated gestational age: 6 weeks, 5 days. Estimated due date by ultrasound: 11/04/2024. 3. Questionable small 7 mm fluid collection, possibly a small subchorionic hemorrhage, versus accumul ation of nonspecific fluid and debris along the fundal to mid endometrial cavity. Close clinical foll ow-up, and short-term sonographic follow-up in 7-10 days are recommended.
--- NOTE | 2024-03-16 14:39 | EDPHYS ---
Physician Documentation [facility] Name: Cristi Ga Age: 28 yrs Sex: Female : 1995 Arrival Date: 03/16/2024 Time: 10:25 Bed 19 Private MD: ED Physician Sharlene Schwab HPI: 03/16 11:05 This 28 yrs old Female presents to ER via Ambulatory with complaints of cp Abdominal Pain, Vomiting/Diarrhea. 11:05 The patient presents with abdominal pain nausea and vomiting. cp 11:05 Onset: The symptoms/episode began/occurred 2 day(s) ago. cp 11:05 Associated signs and symptoms: Pertinent positives: diarrhea, vomiting, Pertinent cp negatives: blood in stools, vaginal bleeding. The symptoms are described as crampy. Severity of pain: in the emergency department the pain is unchanged despite home interventions. LMP in December 2023, patient is . [facility]: 15:03 LMP 01/27/2024, unknown me1 Historical: - Allergies: 11:03 No Known Allergies; aa5 - Home Meds: 11:03 None [Active]; aa5 - PMHx: 11:03 None; aa5 - PSHx: 11:03 Cholecystectomy; aa5 - Immunization history:: Adult Immunizations up to date. - Infectious Disease History:: Denies. - Social history:: Smoking status: Patient denies any tobacco usage or history of. ROS: 11:10 Constitutional: Positive for poor PO intake, Negative for body aches, chills, fever, cp 11:10 Eyes: Negative for injury, pain, redness, and discharge, cp 11:10 ENT: Negative for drainage from ear(s), ear pain, sore throat, difficulty swallowing, difficulty handling secretions, 11:10 Respiratory: Negative for cough, shortness of breath, wheezing, 11:10 Abdomen/GI: Positive for abdominal pain, nausea and vomiting, diarrhea, abdominal cramps, 11:10 Back: Positive for radiated pain, of the low back area, 11:10 : Negative for urinary symptoms, vaginal bleeding, 11:10 Neuro: Negative for dizziness, weakness, 11:10 All other systems are negative, Exam: 11:15 Constitutional: The patient appears in no acute distress, alert, awake, non-toxic, well cp developed, well nourished, uncomfortable, 11:15 Head/Face: Normocephalic, atraumatic. cp 11:15 Eyes: Periorbital structures: appear normal, Conjunctiva: normal, no exudate, no cp injection, Sclera: no appreciated abnormality, Lids and lashes: appear normal, bilaterally, 11:15 ENT: External ear(s): are unremarkable, Nose: is normal, Mouth: Lips: moist, Oral mucosa: pink and intact, moist, Posterior pharynx: Airway: no evidence of obstruction, patent, 11:15 Chest/axilla: Inspection: normal, 11:15 Cardiovascular: Rate: normal, Rhythm: regular, Edema: is not appreciated, 11:15 Respiratory: the patient does not display signs of respiratory distress, Respirations: normal, no use of accessory muscles, no retractions, labored breathing, is not present, Breath sounds: are clear throughout, no decreased breath sounds, no stridor, no wheezing, 11:15 Abdomen/GI: Inspection: abdomen appears normal, Bowel sounds: active, all quadrants, Palpation: soft, in all quadrants, mild abdominal tenderness, in all quadrants, 11:15 Back: CVA tenderness, is absent, 11:15 Neuro: Orientation: to person, place \T\ time. Mentation: is normal, Motor: moves all fours, strength is normal, Vital Signs: 11:03 BP 126 / 79; Pulse 101; Resp 18 S; Temp 97.8(TE); Pulse Ox 100% on R/A; Weight 92.53 kg aa5 (R); Height 5 ft. 7 in. (R); 13:00 BP 128 / 82; Pulse 98; Resp 17; Pulse Ox 100% on R/A; me1 14:00 BP 129 / 76; Pulse 91; Resp 16; Pulse Ox 99% on R/A; me1 15:00 BP 132 / 81; Pulse 88; Resp 16; Temp 98.1; Pulse Ox 99% on R/A; me1 11:03 Body Mass Index 31.95 (92.53 kg, 170.18 cm) aa5 MDM: 10:56 Patient medically screened. cp 14:38 Data reviewed: vital signs, nurses notes, lab test result(s), radiologic studies, cp ultrasound, and as a result, I will discharge patient. 14:38 Differential diagnosis: appendicitis, bowel obstruction, cholecystitis, Cholelithiasis, cp diverticulitis, Ectopic , Endometriosis, non-specific abd pain, Ovarian Torsion. I considered the following discharge prescriptions or medication management in the emergency department Medications were administered in the Emergency Department. See MAR. Counseling: I had a detailed discussion with the patient and/or guardian regarding the historical points, exam findings, and any diagnostic results supporting the discharge/admit diagnosis, lab results, radiology results, the need for outpatient follow up, an OB/Gyne specialist, to return to the emergency department if symptoms worsen or persist or if there are any questions or concerns that arise at home. Response to treatment: the patient's symptoms have markedly improved after treatment, and as a result, I will discharge patient. 03/16 11:00 Order name: CBC with Diff; Complete Time: 11:59 03/16 11:59 Interpretation: Normal except: MCH 26.7; MCHC 31.6; RDW 16.7. 03/16 11:00 Order name: CMP; Complete Time: 11:59 03/16 11:00 Order name: Lipase; Complete Time: 11:59 03/16 11:00 Order name: Test, Urine; Complete Time: 11:59 03/16 11:00 Order name: Urinalysis w/ reflexes; Complete Time: 11:59 03/16 12:00 Interpretation: Normal except: [facility] Extremely Turbid; UKET TRACE; UPROT TRACE; UESTR cp 500; UWBC >50; UBACT >50; SQEPI 20-50; MUCUS 4+. 03/16 12:00 Order name: Abo/rh Typing; Complete Time: 13:51 03/16 13:53 Interpretation: ABO/RH TYPE <p>O POSITIVE</p>; Reviewed. 03/16 12:00 Order name: Quantitative Hcg; Complete Time: 13:51 03/16 13:52 Interpretation: Reviewed. 03/16 12:53 Order name: US Transvaginal Ob; Complete Time: 13:51 03/16 13:55 Interpretation: Report reviewed. 03/16 11:00 Order name: IV Saline Lock; Complete Time: 11:11 03/16 11:00 Order name: Labs collected and sent; Complete Time: 11: 03/16 12:00 Order name: NPO; Complete Time: 12:12 cp 03/16 13:56 Order name: PO challenge; Complete Time: 14:52 cp Administered Medications: 12:34 Drug: NS 0.9% IV 1000 ml IV at 1 bolus Per protocol; 1000 mL bolus Route: IV; Rate: 1 me1 bolus; Site: right antecubital; 14:52 Follow up: Response: No adverse reaction; IV Status: Completed infusion; IV Intake: me1 1000ml 12:34 Drug: Famotidine IVP 20 mg IVP once; dilute with 10 mL 0.9% NaCl; give over 2 minutes me1 Route: IVP; Site: right antecubital; 14:52 Follow up: Response: No adverse reaction me1 12:34 Drug: Ondansetron IVP 4 mg IVP once; over 2 minutes Route: IVP; Site: right antecubital;me1 14:52 Follow up: Response: No adverse reaction; Nausea is decreased me1 Disposition Summary: 03/16/24 14:39 Discharge Ordered Notes: Location: Home cp Problem: new cp Symptoms: have improved cp Condition: Stable cp Diagnosis - Other specified related conditions, first trimester cp - Lower abdominal pain, unspecified cp - Low back pain cp - Nausea with vomiting, unspecified cp Followup: cp - With: Private Physician - When: 1 week - Reason: Recheck today's complaints Discharge Instructions: - Discharge Summary Sheet cp - Abdominal Pain During cp - Care cp - Back Pain in cp - First Trimester of cp Forms: - Medication Reconciliation Form cp - Antibiotic Education cp - Prescription Opioid Use cp - Patient Portal Instructions cp - Leadership Thank You Letter cp Prescriptions: - 16-hpdy-jbafco 9-dha 31 mg iron- 1 mg-200 mg Oral capsule - take 1 tablet ORAL route every morning; 60 tablet; Refills: 0, Product cp Selection Permitted - promethazine 25 mg Oral Tablet - take 1 tablet ORAL route every 6 hours As needed; 20 tablet; Refills: 0, cp Product Selection Permitted Signatures: Dispatcher [employer] Erna Ojeda RN RN aa5 Silverio Otto PA PA cp Pat Benjamin RN RN me1 Corrections: (The following items were deleted from the chart) 11:01 11:01 CBC+H.LAB.BRZ ordered. DARWIN OATSEMS 11: 11:01 COMPREHENSIVE METABOLIC PANEL+C.LAB.BRZ ordered. EDMS EDMS 11: 11:01 LIPASE+C.LAB.BRZ ordered. EDMS EDMS 11: 11:01 Test, Urine+UC.LAB.BRZ ordered. EDMS EDMS 11: 11:01 Urinalysis+U.LAB.BRZ ordered. EDMS EDMS 12: 12:01 ABO/RH TYPING+BB.LAB.BRZ ordered. EDMS EDMS 12: 12:01 QUANTITATIVE HCG+C.LAB.BRZ ordered. EDMS EDMS 13:53 13:52 Reviewed. cp cp
--- NOTE | 2024-03-16 14:39 | ER ---
Nurse's Notes [facility] Name: Cristi Ga Age: 28 yrs Sex: Female : 1995 Arrival Date: 03/16/2024 Time: 10:25 Bed 19 Private MD: Diagnosis: Other specified related conditions, first trimester;Lower abdominal pain, unspecified;Low back pain;Nausea with vomiting, unspecified Presentation: 03/16 11:03 Chief complaint: Patient states: vomiting,diarrhea, and abd cramping x 2 days ago. me1 11:03 Coronavirus screen: diarrhea, vomiting. Ebola Screen: Patient denies travel to an [facility] Ebola-affected area in the 21 days before illness onset. Initial Sepsis Screen: Does the patient meet any 2 criteria? HR > 90 bpm. Does the patient have a suspected source of infection? No. Patient's initial sepsis screen is negative. Risk Assessment: Do you want to hurt yourself or someone else? Patient reports no desire to harm self or others. Onset of symptoms was February 2024. 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 - Infectious Disease History:: Denies. - Social history:: Smoking status: Patient denies any tobacco usage or history of. Screenin:20 [facility] ED Fall Risk Assessment (Adult) History of falling in the last 3 months, me1 including since admission No falls in past 3 months (0 pts) Confusion or Disorientation No (0 pts) Intoxicated or Sedated No (0 pts) Impaired Gait No (0 pts) Mobility Assist Device Used No (0 pt) Altered Elimination No (0 pt) Score/Fall Risk Level 0 - 2 = Low Risk Maintained a safe environment, Provided non-skid footwear, Hourly rounding (assess needs \T\ fall precautionary measures) done. Abuse screen: Denies threats or abuse. Nutritional screening: No deficits noted. Tuberculosis screening: No symptoms or risk factors identified. Assessment: 11:10 Reassessment: Patient is alert, oriented x 3, equal unlabored respirations, skin aa5 warm/dry/pink. 12:20 General: Appears uncomfortable, ill, well groomed, well developed, well nourished, me1 Behavior is calm, cooperative, appropriate for age, Reports vomiting,diarrhea, and abd cramping x 2 days ago. Pain: Complains of pain in right lower quadrant and left lower quadrant Pain does not radiate. Pain currently is 3 out of 10 on a pain scale. Quality of pain is described as crampy, Pain began gradually, 2-3 days ago. Is continuous. Neuro: Level of Consciousness is awake, alert, obeys commands, Oriented to person, place, time, situation, Appropriate for age. Cardiovascular: Patient's skin is warm and dry. Respiratory: Airway is patent Trachea midline Respiratory effort is even, unlabored, Respiratory pattern is regular, symmetrical. GI: Abdomen is round non-distended, Bowel sounds present X 4 quads. Abd is soft X 4 quads. GI: Reports diarrhea, nausea, vomiting, since 2 days ago. : No signs and/or symptoms were reported regarding the genitourinary system. EENT: No signs and/or symptoms were reported regarding the EENT system. Derm: Skin is intact, is healthy with good turgor, Skin is pink, warm \T\ dry. Musculoskeletal: No signs and/or symptoms reported regarding the musculoskeletal system. Vital Signs: 11:03 BP 126 / 79; Pulse 101; Resp 18 S; Temp 97.8(TE); Pulse Ox 100% on R/A; Weight 92.53 kg aa5 (R); Height 5 ft. 7 in. (R); 13:00 BP 128 / 82; Pulse 98; Resp 17; Pulse Ox 100% on R/A; me1 14:00 BP 129 / 76; Pulse 91; Resp 16; Pulse Ox 99% on R/A; me1 15:00 BP 132 / 81; Pulse 88; Resp 16; Temp 98.1; Pulse Ox 99% on R/A; me1 11:03 Body Mass Index 31.95 (92.53 kg, 170.18 cm) aa5 ED Course: 10:27 Patient arrived in ED. mr 10:32 Silverio Otto PA is PHCP. cp 10:32 Sharlene Schwab MD is Attending Physician. cp 11:03 Arm band placed on. aa5 11:05 Triage completed. aa5 11:10 Initial lab(s) drawn, by me, sent to lab. Inserted saline lock: 20 gauge in right aa5 antecubital area, using aseptic technique. Blood collected. Flushed with 10 mL NS. 12:12 Pat Benjamin, RN is Primary Nurse. me1 12:20 Patient has correct armband on for positive identification. Bed in low position. Call me1 light in reach. Side rails up X2. Provided Education on: POC. Verbalized understanding. . Client placed on continuous cardiac and pulse oximetry monitoring. NIBP monitoring applied. Pulse ox on. NIBP on. Warm blanket given. 12:20 No provider procedures requiring assistance completed. me1 12:34 Abo/rh Typing Sent. me1 12:34 Quantitative Hcg Sent. me1 13:27 US Transvaginal Ob In Process Unspecified. EDMS 15:04 IV discontinued, intact, bleeding controlled, No redness/swelling at site. Pressure me1 dressing applied. Administered Medications: 12:34 Drug: NS 0.9% IV 1000 ml IV at 1 bolus Per protocol; 1000 mL bolus Route: IV; Rate: 1 me1 bolus; Site: right antecubital; 14:52 Follow up: Response: No adverse reaction; IV Status: Completed infusion; IV Intake: me1 1000ml 12:34 Drug: Famotidine IVP 20 mg IVP once; dilute with 10 mL 0.9% NaCl; give over 2 minutes me1 Route: IVP; Site: right antecubital; 14:52 Follow up: Response: No adverse reaction me1 12:34 Drug: Ondansetron IVP 4 mg IVP once; over 2 minutes Route: IVP; Site: right antecubital;me1 14:52 Follow up: Response: No adverse reaction; Nausea is decreased me1 Medication: 12:20 VIS not applicable for this client. me1 Intake: 14:52 IV: 1000ml; Total: 1000ml. me1 Outcome: 14:39 Discharge ordered by . cp 15:04 Discharged to home ambulatory, me1 15:04 Condition: stable 15:04 Discharge instructions given to patient, Instructed on discharge instructions, follow up and referral plans. medication usage, Demonstrated understanding of instructions, follow-up care, medications, Prescriptions given X 2, 15:05 Patient left the ED. me1 Signatures: Dispatcher [employer] EDRubi Lucero Reg Reg mr Calderon, Erna, RN RN aa5 Silverio Otto PA PA cp Eddleman, Michelle, RN RN me1 Corrections: (The following items were deleted from the chart) 14:59 11:03 Chief complaint: Patient states: vomiting,diarrhea, and abd cramping x 2 days me1 ago. aa5 15: 14:59 General: Appears uncomfortable, ill, well groomed, well developed, well me1 nourished, Behavior is calm, cooperative, appropriate for age, Reports vomiting,diarrhea, and abd cramping x 2 days ago. me1 15: 14:59 Pain: Complains of pain in right lower quadrant and left lower quadrant Pain does me1 not radiate. Pain currently is 3 out of 10 on a pain scale. Quality of pain is described as crampy, Pain began gradually, 2-3 days ago. Is continuous, me1 15: 14:59 Neuro: Level of Consciousness is awake, alert, obeys commands, Oriented to me1 person, place, time, situation, Appropriate for age me1 15: 14:59 Cardiovascular: Patient's skin is warm and dry. me1 me1 15: 14:59 Respiratory: Airway is patent Trachea midline Respiratory effort is even, me1 unlabored, Respiratory pattern is regular, symmetrical, me1 15: 14:59 GI: Abdomen is round non-distended, Bowel sounds present X 4 quads. Abd is soft X me1 4 quads me1 15: 14:59 : No signs and/or symptoms were reported regarding the genitourinary system. me1me1 15: 14:59 EENT: No signs and/or symptoms were reported regarding the EENT system. me1 me1 15: 14:59 Derm: Skin is intact, is healthy with good turgor, Skin is pink, warm \T\ dry. me1 me1 15: 14:59 Musculoskeletal: No signs and/or symptoms reported regarding the musculoskeletal me1 system. me1 15: 14:59 GI: Reports diarrhea, nausea, vomiting, since 2 days ago me1 me1
[2024-03-16 15:39] VITALS: BP 126/79; TEMP 97.8; O2SAT 100
== END 2024-03-16 15:05 | disposition home or self-care (01) ==
LOC: ER 10:25
DX: O26.891 Other specified pregnancy related conditions, first trimester (principal); O21.9 Vomiting of pregnancy, unspecified; Z3A.01 Less than 8 weeks gestation of pregnancy
CPT/HCPCS: 96361; 85025; 81001; 36415; 86900; 81025; 86901; 84702; 83690; 80053; 76817; 96375; 96374; 99284; J2405; J7030